=== PATIENT | female | born 1935 | race Caucasian/White ===

== ENCOUNTER 2017-05-14 21:55 | Observation (INO) | payer MEDICARE ==
[2017-05-14] MEDS ORDERED: Diltiazem 125 MG/25 ML ONE (22:36)
[2017-05-14 22:58] LABS: ALT (SGPT) 16 U/L (8-55); AST (SGOT) 21 U/L (5-34); Albumin 4.2 g/dL (3.4-4.8); Alkaline Phosphatase 88 U/L (40-150); Anion Gap 11 mmol/L (10-20); BUN (Urea Nitrogen) 12 mg/dL (9.8-20.1); Bilirubin, Total 0.5 mg/dL (0.2-1.2); CK (CPK) 86 U/L (29-168); Calc. Creatinine Clearance 0 mL/min (70-130); Calcium 9.7 mg/dL (7.8-10.44); Carbon Dioxide 29 mmol/L (23-31); Chloride 107 mmol/L (98-107); Estimated GFR-MDRD 83; Glucose 121 mg/dL (83-110); Potassium 3.7 mmol/L (3.5-5.1); Protein, Total 7.2 g/dL (6.0-8.3); Sodium 143 mmol/L (136-145)
[2017-05-14 23:02] LABS: CKMB 2.5 ng/mL (0-6.6); Troponin I Less than 0.010 ng/mL (< 0.028)
[2017-05-14] MEDS ORDERED: Diltiazem HCl 125 MG, Admixture Fee 1 EACH in Sodium Chloride 0.9% 100 ML IVPB SCH (23:15)
[2017-05-14 23:26] LABS: #Basophils 0.1 thou/uL (0.0-0.2); #Eosinphils 0.1 thou/uL (0.0-0.7); #Lymphocytes 2.8 thou/uL (1.20-3.40); #Monocytes 0.7 thou/uL (0.11-0.59); #Neutrophils 3.1 thou/uL (1.40-6.50); %Basophils 1.6 % (0.0-1.0); %Eosinophils 1.8 % (0.0-10.0); %Lymphocytes 40.5 % (21.0-51.0); %Monocytes 10.8 % (0.0-10.0); %Neutrophils 45.3 % (42.0-75.0); Anisocytosis SLIGHT = 6-15 cells (100X) (0-5/hpf); Hemoglobin 13.1 g/dL (12.0-16.0); Hypochromia SLIGHT = 6-15 cells (100X) (0-5/hpf); MDiff Complete? YES; Mean Corpuscular HGB CONC 30.3 g/dL (32.0-36.0); Mean Corpuscular Volume 65.9 fl (81.0-99.0); Mean Platelet Volume 10.8 fL (7.4-10.4); Microcytosis SLIGHT = 6-15 cells (100X) (0-5/hpf); PLT Morphology Comment Appears Adequate; Platelet Count 253 thou/uL (130-400); Red Blood Cell (RBC) Count 6.55 mill/uL (4.20-5.40); White Blood Cell (WBC) Count 6.9 thou/uL (4.8-10.8)
--- NOTE | 2017-05-14 23:31 | RAD ---
PORTABLE CHEST: 05/14/17 HISTORY: Chest pain and palpitations. COMPARISON: 07/06/10. Heart size is upper normal. The lungs appear clear. A nodule overlying the mid right lung is stable a nd would be consistent with a granuloma, probably calcified. No evidence of effusion or vascular isaac estion. IMPRESSION: No acute process. POS: [facility]
[2017-05-15 00:32] LABS: PTT 33.7 SEC (22.9-36.1); Prothrombin Time 12.9 SEC (12.0-14.7)
[2017-05-15] MEDS ORDERED: Ondansetron HCl/PF 4 MG/2 ML Vial IVP PRN (03:25)
[2017-05-15] MEDS ORDERED: Acetaminophen 325 MG TAB PO PRN (03:25)
[2017-05-15] MEDS ORDERED: Ondansetron ODT 4 MG TAB SL PRN (03:25)
[2017-05-15 03:35] VITALS: BMI 26.1
[2017-05-15 08:09] VITALS: BP 172/82; TEMP 97.7
[2017-05-15] MEDS ORDERED: Aspirin 81 mg Enteric Coated Tablet PO SCH (09:00)
--- NOTE | 2017-05-15 12:45 | SS ---
DATE OF ADMISSION: 05/14/2017 DATE OF DISCHARGE: 05/15/2017 ADMISSION DIAGNOSIS: Atrial fibrillation with rapid ventricular response, rule out myocardial infarc tion. DISCHARGE DIAGNOSES: 1. Resolved atrial fibrillation back to normal sinus rhythm spontaneously. 2. Hypertension. 3. History of cerebrovascular accident. 4. Noncompliance with medication. CONSULTATIONS: None. PROCEDURES: IV diltiazem, telemetry monitoring, rule out ME protocol. HOSPITAL COURSE: This is an 82-year-old female patient who has had atrial fibrillation since 2002. She has episodes about every other year and rapid ventricular response. She is followed by Dr. Chapman , has not seen in 1-2 years. She is status post ablation by Dr. Mann in 2013. She has not tolerat ed anticoagulation except for aspirin in the past and had developed spontaneous bleeding and hematoma with Coumadin back in 2013. The patient states that she has been in her usual state of health, doin g quite well. She was mowing the lawn yesterday until it got dark. She came in after mowing, lookin g for something to eat when she developed palpitations and her heart racing up to 142. She denied ch est pain, denied shortness of breath, denied lightheadedness. She tried to see if it would go away o n its own, but it did not. She presented to the Emergency Department. She does note that she does n ot remember if she took her diltiazem yesterday and was not sure if she should go ahead and take anot her one. In the emergency department, she was admitted. She had normal cardiac enzymes. She was st arted on IV Cardizem which was continued through the night and she converted back to normal sinus rhy thm spontaneously on the IV diltiazem. She is now symptom free. No chest pain, no palpitations. He r cardiac enzymes have been negative. She is ambulating in the hallway without difficulty and is wan ting to go home at this time. She understands the risks and states that she will follow up with Dr. Chapman as an outpatient. PAST MEDICAL HISTORY: Atrial fibrillation, hypertension, hyperlipidemia, history of rapid ventricula r response, history of CVA in 2002, history of lung carcinoid, status post lobectomy. MEDICATIONS: Include diltiazem 120 mg extended release once daily, metoprolol 50 mg extended release once daily, aspirin 325 mg daily, fish oil, vitamin E, Co-Q10, vitamin C, and magnesium. PAST SURGICAL HISTORY: Lung lobectomy in 2002 for carcinoid and cardiac ablation in 2013. FAMILY HISTORY: Noncontributory. SOCIAL HISTORY: No smoking or alcohol. She lives alone. ALLERGIES: None known. OTHER HOSPITALIZATIONS: She was found to have a cerebral thrombosis in 2014 and continued to decline anticoagulation. REVIEW OF SYSTEMS: General: As per the history of present illness. No recent fevers, chills or rec ent illness. HEENT: No headache, visual or hearing changes. Cardiac: No chest pain, shortness of breath. Positive for palpitations. Pulmonary: No cough or hemoptysis. Gastrointestinal: Denies n ausea, vomiting, abdominal pain, melena or hematochezia. Genitourinary: Denies dysuria or hematuria . Neurologic: Denies weakness, seizures, syncope. PHYSICAL EXAMINATION: VITAL SIGNS: Temperature 97.8, pulse of 60, respirations 18, pulse ox 95% on room air, blood pressur e 179/75 but she has not had her morning meds yet. GENERAL: She is awake and alert, in no acute distress. Speech is clear and fluid. NECK: Supple, no JVD, adenopathy or bruits. CARDIOVASCULAR: Heart regular rate and rhythm with 2/6 systolic ejection murmur. LUNGS: Clear. ABDOMEN: Soft. EXTREMITIES: With no edema. NEUROLOGIC: Cranial nerves II-XII grossly intact. Strength is 5/5 upper and lower extremities. LABORATORY DATA: Sodium 143, potassium 3.7, chloride 107, CO2 of 29, BUN and creatinine 12 and 0.68 with a GFR of 83. Serum glucose of 121. Liver enzymes are normal. Troponin less than 0.01, #2 was 0.04, #3 was 0.03. BNP was normal at 83. PT, PTT were normal. EKG from this morning revealed mikie l sinus rhythm. ASSESSMENT AND PLAN: 1. This is an 82-year-old female patient with chronic and paroxysmal atrial fibrillation, now with e pisode of rapid ventricular response. She has converted back to normal sinus rhythm with IV diltiaze m. She has been changed back to her oral meds at this time. 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 She continues to d ecline any further anticoagulation due to her complications in the past and risks and she understands those as well. 2. Noncompliance. We discussed a pill minder program so that she can recall when she has or has not taken her medications. 3. Hypertension. We will continue her medicines. DISPOMeadeSITION: We will discharge home with close followup with myself and with Dr. Chapman.
== END 2017-05-15 09:39 | disposition home or self-care (01) ==
LOC: ERS 21:55 → 2SW 05-15 01:15
PROVIDERS: ADMIT Family Medicine; ATTEND Family Medicine
DX: I48.2 Chronic atrial fibrillation (principal); I48.0 Paroxysmal atrial fibrillation; I10 Essential (primary) hypertension; E78.5 Hyperlipidemia, unspecified; Z86.73 Personal history of transient ischemic attack (TIA), and cerebral infarction without residual deficits; Z91.14 Patient's other noncompliance with medication regimen; Z79.82 Long term (current) use of aspirin; Z79.899 Other long term (current) drug therapy
CPT/HCPCS: 36415; 71045; 80053; 82550; 82553; 83880; 84484; 85025; 85610; 85730; 93005; 96365; 96366; 96376; J7050

== ENCOUNTER 2018-02-15 02:50 | Emergency (ER) | payer MEDICARE ==
[2018-02-15 03:46] LABS: Hemoglobin 12.1 g/dL (12.0-16.0); Mean Corpuscular HGB CONC 30.8 g/dL (32.0-36.0); Mean Corpuscular Hemoglobin 20.2 pg (27.0-31.0); Mean Corpuscular Volume 65.4 fL (78.0-98.0); Platelet Count 240 thou/uL (130-400); RBC Distribution Width 13.7 % (11.5-14.5); White Blood Cell (WBC) Count 6.4 thou/uL (4.8-10.8)
[2018-02-15 04:00] LABS: ALT (SGPT) 10 U/L (8-55); AST (SGOT) 18 U/L (5-34); Albumin 3.6 g/dL (3.4-4.8); Alkaline Phosphatase 72 U/L (40-150); Anion Gap 11 mmol/L (10-20); BUN (Urea Nitrogen) 11 mg/dL (9.8-20.1); Bilirubin, Total 0.6 mg/dL (0.2-1.2); CK (CPK) 56 U/L (29-168); Calc. Creatinine Clearance 0 mL/min (70-130); Carbon Dioxide 25 mmol/L (23-31); Chloride 108 mmol/L (98-107); Estimated GFR-MDRD 87; Globulin 2.9 g/dL (2.4-3.5); Glucose 126 mg/dL (83-110); Potassium 3.9 mmol/L (3.5-5.1); Protein, Total 6.5 g/dL (6.0-8.3); Sodium 140 mmol/L (136-145)
[2018-02-15] MEDS ORDERED: Furosemide 40 MG TAB ONE (04:24)
[2018-02-15 04:35] LABS: #Eosinphils 0.1 thou/uL (0.0-0.7); #Lymphocytes 1.7 thou/uL (1.20-3.40); #Monocytes 0.8 thou/uL (0.11-0.59); #Neutrophils 3.7 thou/uL (1.40-6.50); %Basophils 0.7 % (0.0-1.0); %Eosinophils 2.3 % (0.0-10.0); %Lymphocytes 26.1 % (21.0-51.0); %Monocytes 13.2 % (0.0-10.0); %Neutrophils 57.7 % (42.0-75.0); Anisocytosis SLIGHT = 6-15 cells (100X) (0-5/hpf); MDiff Complete? YES; Microcytosis SLIGHT = 6-15 cells (100X) (0-5/hpf)
--- NOTE | 2018-02-15 08:06 | RAD ---
SINGLE VIEW OF THE CHEST: COMPARISON: 05/14/2017. HISTORY: Chest pain and atrial fibrillation. FINDINGS: A single view of the chest shows a normal-sized cardiomediastinal silhouette with atherosclerotic bhavya cifications in the aorta. There is no evidence of consolidation or pleural effusion. A calcified gr anuloma projects over the right chest. IMPRESSION: No evidence of acute cardiopulmonary disease. POS: [facility]
== END 2018-02-15 04:40 | disposition home or self-care (01) ==
LOC: ERS 02:50
DX: I48.91 Unspecified atrial fibrillation (principal); I10 Essential (primary) hypertension; Z79.899 Other long term (current) drug therapy
CPT/HCPCS: 36415; 71045; 80053; 82550; 83880; 84484; 85025; 93005

== ENCOUNTER 2018-03-25 11:13 | Inpatient (IN) | payer MEDICARE ==
--- NOTE | 2018-03-25 13:04 | RAD ---
LEFT HIP TWO VIEWS: History: Fall. Left hip pain. FINDINGS/IMPRESSION: There is a subcapital fracture of the neck of the left femur. POS: [facility]
[2018-03-25 13:11] LABS: Hemoglobin 13.1 g/dL (12.0-16.0); Mean Corpuscular HGB CONC 30.4 g/dL (32.0-36.0); Mean Corpuscular Hemoglobin 20.4 pg (27.0-31.0); Mean Corpuscular Volume 67.1 fL (78.0-98.0); Mean Platelet Volume 9.1 fL (7.4-10.4); Platelet Count 213 thou/uL (130-400); RBC Distribution Width 13.7 % (11.5-14.5); White Blood Cell (WBC) Count 7.5 thou/uL (4.8-10.8)
[2018-03-25 13:12] LABS: PTT 31.5 SEC (22.9-36.1); Prothrombin Time 12.7 SEC (12.0-14.7)
[2018-03-25 13:25] LABS: ALT (SGPT) 17 U/L (8-55); AST (SGOT) 25 U/L (5-34); Albumin 4.1 g/dL (3.4-4.8); Alkaline Phosphatase 89 U/L (40-150); Anion Gap 13 mmol/L (10-20); BUN (Urea Nitrogen) 13 mg/dL (9.8-20.1); Bilirubin, Total 0.6 mg/dL (0.2-1.2); CK (CPK) 72 U/L (29-168); Calc. Creatinine Clearance 0 mL/min (70-130); Calcium 9.5 mg/dL (7.8-10.44); Carbon Dioxide 25 mmol/L (23-31); Chloride 106 mmol/L (98-107); Estimated GFR-MDRD 83; Globulin 2.9 g/dL (2.4-3.5); Glucose 107 mg/dL (83-110); Sodium 140 mmol/L (136-145)
[2018-03-25 13:40] LABS: #Eosinphils 0.1 thou/uL (0.0-0.7); #Lymphocytes 1.3 thou/uL (1.20-3.40); #Monocytes 0.4 thou/uL (0.11-0.59); #Neutrophils 5.7 thou/uL (1.40-6.50); %Basophils 0.4 % (0.0-1.0); %Eosinophils 1.4 % (0.0-10.0); %Lymphocytes 16.7 % (21.0-51.0); %Monocytes 5.5 % (0.0-10.0); Hypochromia SLIGHT = 6-15 cells (100X) (0-5/hpf); MDiff Complete? YES; Microcytosis SLIGHT = 6-15 cells (100X) (0-5/hpf); Platelet Morphology Comment Appears Adequate
[2018-03-25] MEDS ORDERED: ePHEDrine 50 MG/ML VIAL ONE (13:42)
[2018-03-25] MEDS ORDERED: PROPOFOL 200 MG/20 ML VIAL ONE (13:42)
[2018-03-25] MEDS ORDERED: PROVENTIL INHALER 6.7 G (200 INHALATIONS) ONE (13:42)
[2018-03-25] MEDS ORDERED: Lidocaine 1% PF 5 ML VIAL ONE (13:42)
[2018-03-25] MEDS ORDERED: Ketorolac Tromethamine 30 MG/ML VIAL ONE (13:42)
[2018-03-25] MEDS ORDERED: Dexamethasone 20 MG/5 ML VIAL ONE (13:42)
[2018-03-25] MEDS ORDERED: Rocuronium Bromide 10 MG/ML (10ML VIAL) ONE (13:42)
[2018-03-25] MEDS ORDERED: Glycopyrrolate 0.2 MG/ML 5 ML SYRINGE ONE ×2 (13:42)
[2018-03-25] MEDS ORDERED: Ondansetron PF 4 MG/2 ML Vial ONE (13:42)
[2018-03-25] MEDS ORDERED: cloNIDine 0.1 MG TAB ONE (13:57)
[2018-03-25] MEDS ORDERED: CEFAZOLIN/Water 2 GM/20 ML SYRINGE SLOW IVP SCH ×2 (14:00→19:49)
[2018-03-25] MEDS ORDERED: CEFAZOLIN 2 GM in Premix Bag 1 BAG IVPB SCH (14:30)
--- NOTE | 2018-03-25 14:41 | HP ---
CONSULTATIONS: Orthopedics, Dr. Yee. HISTORY OF PRESENT ILLNESS: The patient is an 83-year-old female, who was reportedly attempting to take a step up a stair when she was grabbing hold of a branch of a nearby chou to balance herself when she lost her balance and fell landing on her left side. The patient had immediate pain to her left hip. She was brought to the emergency department, where she underwent evaluation and examination and was noted to have a left hip fracture. At which time, we were asked to evaluate the patient for admission and obtain Orthopedic consultation. The patient denies loss of consciousness or hitting her head. ALLERGIES: NONE. CURRENT MEDICATIONS: 1. Diltiazem. 2. Metoprolol. PAST MEDICAL HISTORY: Atrial fibrillation and carcinoid lung cancer, also hypertension. PAST SURGICAL HISTORY: Cardiac ablation for her atrial fibrillation, lung biopsy. SOCIAL HISTORY: The patient denies drug, tobacco, or alcohol use. Currently lives independently at home. REVIEW OF SYSTEMS: A 10-point review of systems is negative except as otherwise stated. PHYSICAL EXAMINATION: VITAL SIGNS: Blood pressure 195/89, respirations 16, oxygen saturation 93% on room air, heart rate 57, temperature 98.8. GENERAL: The patient is resting comfortably in bed. She is awake, alert, and oriented x3. [place] Coma Scale is 15. HEENT: Head is normocephalic, atraumatic. Eyes, extraocular motion intact. PERRLA bilaterally. Ears are atraumatic without discharge. Nose, atraumatic without discharge. Oropharynx is clear. NECK: Nontender. Trachea is midline. No JVD. CHEST: Clear to auscultation with good inspiratory and expiratory effort. HEART: Regular rate and rhythm. ABDOMEN: Soft, flat, nontender with active bowel sounds. PELVIS: Stable with tenderness to palpation to the left hip consistent with her fracture. EXTREMITIES: Neurovascularly intact x4. BACK: By report is atraumatic and nontender. LABORATORY FINDINGS: White blood cell count 7.5, hemoglobin 13.1, hematocrit 42.9, platelets 213. Sodium 140, potassium 4.0, chloride 106, CO2 of 25, BUN 13, creatinine 0.68, glucose 107. LFTs are unremarkable. CK 72, PTT 32, PT 13, INR 1.0. RADIOGRAPHIC FINDINGS: AP chest x-ray shows no acute findings. Views of the left hip show subcapital fracture of the neck of the left femur. Views of the left femur again show a displaced subcapital femur fracture. ASSESSMENT: 1. Status post ground level fall. 2. Left subcapital proximal femur fracture. 3. Acute pain secondary to trauma. 4. History of hypertension. 5. History of atrial fibrillation, status post ablation. PLAN: Plan will be to admit the patient to the surgical floor. She will remain n.p.o. Per discussion with Orthopedics, she will likely undergo her surgical procedure today. The patient will have pulmonary toilet, gastritis, mechanical VTE prophylaxis. Postoperatively, we will begin physical and occupational therapy and then discuss placement at that time. The evaluation, examination, laboratory, and radiographic findings were discussed with Dr. Hein at time of dictation. Job ID: [id number]
--- NOTE | 2018-03-25 14:47 | CON ---
DATE OF CONSULTATION: HISTORY: We were asked by Trauma in the ER to see the patient. The patient was in her normal state of health. She lives alone. She was getting up from the bed to get the medications for horses. Unfortunately, in the stairs, she was going up, did not have any railing. She used the chou, the chou gave way, and she fell. No loss of consciousness, but had extensive hip pain. Currently, she is in bed 2 in the ER. Family is at the bedside and she is doing okay unless we move her leg and then she is not very happy. Other than that, no loss of sensations in that lower extremity. She has good sensations in left lower extremity. The patient is answering all the questions well and she has no other issues. Currently, Juancarlos Gutiérrez PA-C is in getting medical history to see if we can take her to the operating room this afternoon. PAST MEDICAL HISTORY: Positive for cardiovascular, lung cancer, and atrial fibrillation. PAST SURGICAL HISTORY: She had ablation surgery and lung surgery. SOCIAL HISTORY: Retired. No alcohol or nicotine use. Lives alone. FAMILY HISTORY: Noncontributory to this visit. CURRENT MEDICATIONS: Clonidine, aspirin, diltiazem, and metoprolol. ALLERGIES: NONE. REVIEW OF SYSTEMS: Healthy female. She has been seen since her ablation 5 years ago for a few bouts of atrial fibrillation, but did not need any aggressive therapies to get her back in her normal rhythm. Currently, no chest pain, shortness of breath, just right lower extremity pain. Rest of review of systems negative. PHYSICAL EXAMINATION: GENERAL: Well-nourished, well-developed female, very pleasant, in no acute distress as long as we do not move her. Speech, clear. Affect, pleasant. Answering question appropriately. She is alert and oriented x3. HEENT: Face symmetric. Tongue midline. NECK: Supple. Trachea midline. LUNGS: Breathing without difficulty. Respirations 16. EXTREMITIES: Upper extremities; equal size, shape, and symmetry. Normal bulk and tone. She has a few bruises on her forearms, but not too bad. Lower extremities; left lower extremity is painful with moving especially at the hip, it is little bit shortened and outward rotated, but DP and PT pulses equal and symmetric. She has a little bit of bruising on the left side also. ASSESSMENT: 1. Left hip fracture. 2. Cardiac issues. Trauma will deal with any of her chronic health conditions. PLAN: I spoke with the patient and family. If cleared by Trauma, we will get the patient set up for hemiarthroplasty. The procedure, risks, and benefits involved were explained to the family and their questions have been answered and they are amenable to go forth with surgery. I reviewed the x-rays with Dr. Yee and this would be the appropriate therapy for the patient. I also went over some of the postoperative treatment for the patient. She may need to go in a rehab for a while for further convalescing and strengthening and she understands this. We will get her on surgery schedule this afternoon to get her hip fixed. Hopefully, get her up walking tomorrow morning. Job ID: [id number]
--- NOTE | 2018-03-25 14:57 | RAD ---
CHEST 1 VIEW: Date: 03/25/18 HISTORY: Chest pain. COMPARISON: Radiograph dated 02/15/18. FINDINGS: Mild increased peribronchovascular markings. No pneumothorax. No effusion. Cardiac silhouette is geovanny lar. IMPRESSION: Cardiomegaly with mild pulmonary venous congestion. POS: [facility]
--- NOTE | 2018-03-25 14:58 | RAD ---
LEFT FEMUR 2 VIEWS: Date: 03/25/18 HISTORY: Fall. Fracture. COMPARISON: Hip radiograph same date. FINDINGS: There is an impacted subcapital left femoral neck fracture with mild valgus angulation. Distal femur is intact. IMPRESSION: Mildly impacted, valgus angulated subcapital left femoral neck fracture. POS: [facility]
[2018-03-25] MEDS ORDERED: Ondansetron HCl/PF 4 MG/2 ML Vial IVP PRN ×2 (16:22→18:47)
[2018-03-25] MEDS ORDERED: Ketamine 50 MG/ML (10ML VIAL) ONE (16:59)
[2018-03-25] MEDS ORDERED: Fentanyl 100 MCG/2 ML VIAL ONE (17:20)
[2018-03-25] MEDS ORDERED: HYDROmorphone 2 MG/ML VIAL SLOW IVP PRN (18:47)
[2018-03-25] MEDS ORDERED: Morphine Sulfate 2 MG/ML SYRINGE SLOW IVP PRN (18:47)
[2018-03-25] MEDS ORDERED: PACU-Morphine 4MG/ML VIAL SLOW IVP PRN (18:47)
[2018-03-25] MEDS ORDERED: Meperidine HCl/PF 25 MG/ML VIAL SLOW IVP PRN (18:47)
[2018-03-25] MEDS ORDERED: Promethazine HCl 25 MG/ML VIAL SLOW IVP PRN (18:47)
[2018-03-25] MEDS ORDERED: Promethazine HCl 25 MG/ML VIAL IM PRN (18:47)
[2018-03-25] MEDS ORDERED: Ondansetron ODT 4 MG TAB PO PRN (19:49)
[2018-03-25] MEDS ORDERED: hydrALAZINE 20 MG/ML VIAL SLOW IVP PRN (19:49)
[2018-03-25] MEDS ORDERED: Dextrose 5% in Water 1,000 ML IV PRN (19:49)
[2018-03-25] MEDS ORDERED: Morphine 4 MG/ML VIAL SLOW IVP PRN ×2 (19:49)
[2018-03-25] MEDS ORDERED: Dextrose 50% Abboject 50 ML SYRINGE SLOW IVP PRN (19:49)
[2018-03-25] MEDS ORDERED: Ondansetron PF 4 MG/2 ML Vial IVP PRN (19:49)
[2018-03-25 21:31] VITALS: BMI 26.3
--- NOTE | 2018-03-25 21:47 | RAD ---
LEFT HIP ONE VIEW: HISTORY: Postop. FINDINGS: This is a cross-table lateral view, which shows a total hip prosthesis in good position. No fracture . IMPRESSION: Placement of total hip prosthesis. POS: [facility]
--- NOTE | 2018-03-25 21:48 | RAD ---
AP PELVIS: HISTORY: Hip replacement. FINDINGS: The bones are demineralized. A total hip prosthesis is in good position. No evidence of fracture. IMPRESSION: Placement of a left hip prosthesis. POS: [facility]
[2018-03-25] MEDS: Famotidine 20 MG TAB PO SCH (21:56)
[2018-03-25] MEDS: Acetaminophen 1,000 MG in Premix Bag 1 BAG IVPB SCH (21:57)
[2018-03-25] MEDS: Ketorolac Tromethamine 30 MG/ML VIAL IVP SCH (21:58)
[2018-03-25] MEDS: Sodium Chloride 0.9% 1,000 ML IV SCH (22:05)
[2018-03-25] MEDS: CEFAZOLIN 2 GM in Premix Bag 1 BAG IVPB SCH (23:39)
--- NOTE | 2018-03-26 01:03 | OP ---
DATE OF PROCEDURE: 03/25/2018 PROCEDURE PERFORMED: Left hip bipolar hemiarthroplasty. PREOPERATIVE DIAGNOSIS: Left femoral neck fracture. POSTOPERATIVE DIAGNOSIS: Left femoral neck fracture. COMPLICATIONS: None. ESTIMATED BLOOD LOSS: 200 mL. DEFENSIVE DRIVING INSTRUCTOR: Rodger Neil PA-C. IMPLANTS: [employer] [place] press-fit basic stem size 6, +5 femoral head with a 43-mm bipolar shell. INDICATIONS FOR PROCEDURE: Maryjo is an 83-year-old female who fell. She fractured the left femoral neck. She was indicated for hemiarthroplasty of the hip to restore mobilization and prevent complications of prolonged bedrest. Risks have been reviewed in detail. Risks to include infection, pain, scarring, bleeding, nerve or vascular injury, and others. DESCRIPTION OF PROCEDURE: Ms. Sibley was identified in the preoperative holding area. Her correct extremity was marked. She was carried to the operating room. She was positioned supine. General anesthesia was induced. The left lower extremity was prepped and draped in sterile fashion. We began the procedure with a posterior approach to the hip. We dissected down through the subcutaneous tissues to the fascia, which was incised. We then exposed the underlying short external rotators of the hip, which were subperiosteally divided from the proximal femur. We then performed a capsulotomy. At this point, we removed the broken femoral head. We then performed a new osteotomy of the femoral neck. At this point, we proceeded to prepare the femur with reaming followed by broaching up to a size 6. This gave a good fit. We trialed off our size 6 broach. A +5 femoral head gave the episcopal of leg length and a stable hip in full range of motion. We removed the trial components. After thorough irrigation, we impacted our final stem and bipolar shell. At this point, we paired the capsule and piriformis tendon with Ethibond suture through drill holes in the trochanter. We then closed the fascia with #2 Vicryl suture followed by 2-0 Vicryl suture, and arielle for the skin. A sterile dressing was applied. The patient was taken to the recovery room in good condition. Job ID: [id number]
[2018-03-26] MEDS: Ketorolac Tromethamine 30 MG/ML VIAL IVP SCH ×2 (03:10→07:42)
[2018-03-26] MEDS: Acetaminophen 1,000 MG in Premix Bag 1 BAG IVPB SCH ×2 (03:11→07:41)
[2018-03-26 05:36] LABS: #Lymphocytes 0.8 thou/uL (1.20-3.40); #Monocytes 0.5 thou/uL (0.11-0.59); %Basophils 0.2 % (0.0-1.0); %Eosinophils 0.1 % (0.0-10.0); %Lymphocytes 6.7 % (21.0-51.0); %Monocytes 3.9 % (0.0-10.0); %Neutrophils 89.1 % (42.0-75.0); Mean Corpuscular HGB CONC 30.2 g/dL (32.0-36.0); Mean Corpuscular Hemoglobin 20.3 pg (27.0-31.0); Mean Corpuscular Volume 67.1 fL (78.0-98.0); Mean Platelet Volume 10.1 fL (7.4-10.4); Platelet Count 174 thou/uL (130-400); RBC Distribution Width 13.6 % (11.5-14.5); Red Blood Cell (RBC) Count 5.41 mill/uL (4.20-5.40); White Blood Cell (WBC) Count 12.4 thou/uL (4.8-10.8)
[2018-03-26 05:53] LABS: Anion Gap 12 mmol/L (10-20); BUN (Urea Nitrogen) 12 mg/dL (9.8-20.1); Calc. Creatinine Clearance 72 mL/min (70-130); Calcium 8.2 mg/dL (7.8-10.44); Carbon Dioxide 23 mmol/L (23-31); Chloride 107 mmol/L (98-107); Estimated GFR-MDRD Greater than 90; Glucose 143 mg/dL (83-110); Potassium 3.8 mmol/L (3.5-5.1); Sodium 138 mmol/L (136-145)
[2018-03-26] MEDS: Sodium Chloride 0.9% 1,000 ML IV SCH (06:22)
[2018-03-26] MEDS: CEFAZOLIN 2 GM in Premix Bag 1 BAG IVPB SCH (07:41)
[2018-03-26] MEDS: Famotidine 20 MG TAB PO SCH ×2 (07:42→21:59)
[2018-03-26] MEDS ORDERED: traMADol HCl 50 MG TAB PO PRN ×2 (08:50)
[2018-03-26] MEDS: Acetaminophen 500 MG TAB PO SCH ×2 (10:29→17:57)
[2018-03-26] MEDS: Ibuprofen 200 MG TAB PO SCH ×3 (10:29→22:00)
[2018-03-26] MEDS: Aspirin 81 mg Enteric Coated Tablet PO SCH ×2 (10:31→21:59)
--- NOTE | 2018-03-26 14:49 | PRG ---
DATE OF SERVICE: 03/26/2018 SUBJECTIVE: This is an 83-year-old female, who was status post ground level fall with a left subcapital femur neck fracture. The patient is postop day #1, left hip bipolar hemiarthroplasty by Dr. Yee. The patient had no overnight events. The patient is eating and drinking well. Pain seems to be well controlled. OBJECTIVE: VITAL SIGNS: SpO2 of 99% on 2 L nasal cannula, pulse 67, blood pressure 161/76, respirations 16, temperature 98.3. GENERAL: The patient is resting comfortably in bed. The patient is awake, alert, in no distress. HEENT: Head is normocephalic, atraumatic. NECK: Nontender. Trachea midline. No JVD. RESPIRATORY: Regular rate and unlabored. Equal chest rise. No distress. PELVIS: Stable. Tenderness to left hip. Dressing is clean, dry, and intact. EXTREMITIES: Neurovascularly intact x4. LABORATORY DATA: WBC 12.4, RBC 5.41, hemoglobin 11.0, hematocrit 36.3, platelets 174. Sodium 138, potassium 3.8, chloride 107, BUN 12, creatinine 0.61, estimated GFR 90, glucose 143, calcium 8.2. DIAGNOSTICS: There are no diagnostics to review today. ASSESSMENT AND PLAN: 1. Status post ground level fall. 2. Left subcapital proximal femur fracture, postoperative day #1 left hip bipolar hemiarthroplasty. 3. Acute pain secondary to trauma. 4. History of hypertension. 5. History of atrial fibrillation status post ablation. PLAN: We will encourage incentive spirometer and pulmonary toilet. Start scheduled nebs. We will place the patient on chemical VTE prophylaxis. We will restart the patient's home medications for hypertension. The patient will be placed on a bowel regimen and all pain medications will be changed to p.o. The patient is pending rehab placement and hopefully will be placed tomorrow. We will continue physical therapy and occupational therapy. The patient was evaluated with Dr. Hein this morning in rounds. The plan was discussed with the patient and the patient agrees. Job ID: [id number] [facility]
[2018-03-26] MEDS: Senokot S 8.6-50 MG TAB PO SCH (21:59)
[2018-03-26] MEDS: Metoprolol Tartrate 25 MG TAB PO SCH (21:59)
[2018-03-27] MEDS: Acetaminophen 500 MG TAB PO SCH ×3 (00:33→12:22)
[2018-03-27 05:08] LABS: Anion Gap 10 mmol/L (10-20); BUN (Urea Nitrogen) 23 mg/dL (9.8-20.1); Calc. Creatinine Clearance 60 mL/min (70-130); Calcium 8.6 mg/dL (7.8-10.44); Carbon Dioxide 26 mmol/L (23-31); Chloride 104 mmol/L (98-107); Estimated GFR-MDRD 76; Glucose 114 mg/dL (83-110); Magnesium 2.2 mg/dL (1.6-2.6); Phosphorus 3.7 mg/dL (2.3-4.7); Potassium 4.1 mmol/L (3.5-5.1); Sodium 136 mmol/L (136-145)
[2018-03-27] MEDS: Aspirin 81 mg Enteric Coated Tablet PO SCH (08:29)
[2018-03-27] MEDS: Famotidine 20 MG TAB PO SCH (08:30)
[2018-03-27] MEDS: Senokot S 8.6-50 MG TAB PO SCH (08:31)
[2018-03-27] MEDS: Ibuprofen 200 MG TAB PO SCH ×2 (08:31→16:42)
[2018-03-27] MEDS: Metoprolol Tartrate 25 MG TAB PO SCH (08:31)
[2018-03-27] MEDS ORDERED: Polyethylene Glycol 3350 17 GM Packet PO SCH (09:00)
[2018-03-27] MEDS ORDERED: cloNIDine 0.1 MG TAB PO PRN (10:04)
[2018-03-27] MEDS ORDERED: Furosemide 40 MG TAB PO PRN (10:04)
[2018-03-27] MEDS ORDERED: Acetaminophen 325 MG TAB PO PRN (10:04)
[2018-03-27 16:38] VITALS: BP 149/67; TEMP 98
--- NOTE | 2018-03-27 17:04 | DIS ---
DATE OF ADMISSION: 03/25/2018 DATE OF DISCHARGE: 03/27/2018 DISCHARGE ATTENDING: Robbin Hein DO CONSULT: Orthopedics, Jeremiah Yee MD PROCEDURES: 1. On 03/25/2018, hip x-ray, impression, subcapital fracture of the neck of the left femur. 2. Chest x-ray on 03/25, impression, cardiomegaly with mild pulmonary venous congestion. 3. On 03/25/2018, femur x-ray, mildly displaced valgus angulated subcapital left femoral neck fracture. 4. On 03/25/2018, procedure, left hip bipolar hemiarthroplasty by Dr. Yee. PRIMARY DIAGNOSIS: Left subcapital femur neck fracture. SECONDARY DIAGNOSES: History of hypertension and atrial fibrillation, status post ablation. DISCHARGE MEDICATIONS: 1. Tylenol 1000 mg p.o. q.6 hours. 2. Aspirin 81 mg b.i.d. 3. Clonidine 0.1 three times a day as needed for blood pressure greater than 160. 4. Cardizem CD 120 mg p.o. daily. 5. /820 mg p.o. b.i.d. 6. Furosemide 40 mg 1 tablet p.o. daily as needed for leg swelling. 7. Motrin 400 mg p.o. three times a day. 8. Metoprolol 50 mg p.o. at bedtime. 9. Zofran 4 mg ODT q.6 hours as needed for nausea. 10. MiraLAX 17 g p.o. daily. 11. Senokot S 2 tablets p.o. b.i.d. 12. Tramadol 1 to 2 tablets q.6 hours as needed for mhuhrmtu-av-qfxyex pain. DISCONTINUE MEDICATIONS: The patient's previous home Tylenol dose. HISTORY OF PRESENT ILLNESS AND HOSPITAL COURSE: This is an 83-year-old female, who was attempting to take a step of a stair and lost her balance, landing onto her left side. The patient was evaluated in the Emergency Department and was found to have a left hip fracture. Orthopedics was consulted and taken to the OR for repair. The patient is postop day #2. The patient has been participating with physical therapy. The patient's pain has been well controlled. The patient also reports having a good appetite. The patient voices no complaints. Home medications were restarted today. The patient has not had a bowel movement, but is on a scheduled bowel regimen. On the day of discharge, the patient had no complaints nor did the family. The patient's vital signs were stable on the day of discharge and exam was unremarkable including cardiopulmonary and GI exam. The patient deemed stable for discharge to inpatient rehab for continued physical and occupational therapy. The plan was discussed with Dr. Hein. DISPOSITION: Stable. DISCHARGE INSTRUCTIONS: LOCATION: Inpatient rehab. DIET: Regular diet. ACTIVITY: As tolerated with hip precautions. The patient to use a walker for ambulation. FOLLOWUP: 1. Follow up with primary care physician, Dr. Mooney, as needed. 2. Follow up with Dr. Yee in 10 days. 3. Follow up with Dr. Hein, if needed. Job ID: [id number] [facility]
== END 2018-03-27 16:56 | DRG 470 ==
LOC: ERS 11:13 → SDC/OP 14:17 → SJJU 19:49
PROVIDERS: ADMIT Surgery; ATTEND Surgery
PROC: 0SRS0JA Replacement of Left Hip Joint, Femoral Surface with Synthetic Substitute, Uncemented, Open Approach (ICD-10-PCS; principal; 2018-03-25)
DX: S72.012A Unspecified intracapsular fracture of left femur, initial encounter for closed fracture (principal); I10 Essential (primary) hypertension; W10.9XXA Fall (on) (from) unspecified stairs and steps, initial encounter; I48.91 Unspecified atrial fibrillation; Z98.890 Other specified postprocedural states; Z79.82 Long term (current) use of aspirin; Z79.899 Other long term (current) drug therapy
CPT/HCPCS: 36415; 71045; 72170; 80048; 80053; 82550; 83735; 84100; 85025; 85610; 85730; 86850; 86900; 86901; 93005; 94640; J0131; J1100; J1885; J2001; J2405; J2704; J3010; J3490; J7620

== ENCOUNTER 2018-04-17 20:18 | Inpatient (IN) | payer MEDICARE ==
[~2018-04-17 20:18] MED LIST: ISOVUE-370 76%-LOCM 1 ML ONE
--- NOTE | 2018-04-17 21:11 | RAD ---
CHEST ONE VIEW 04/17/18 INDICATION: Shortness of breath. COMPARISON: Prior exam dated 02/15/18. FINDINGS: Nodular prominence of the right hilar region is stable. Calcified granuloma in the right upper lobe i s stable. Mild cardiomegaly is stable. There is new increased air space opacity within the left lower lobe with a small left pleural effusion. No acute osseous abnormality is evident. IMPRESSION: 1. Increased air space opacity in left lower lobe with a small left pleural effusion may reflect pneumonia with a small parapneumonic effusion. Recommend correlation with clinical examination. 2. Mild cardiomegaly is stable to comparison dated 02/15/18. 3. Stable findings of prior granulomatous disease. POS: [facility]
[2018-04-17 21:36] LABS: #Basophils 0.1 thou/uL (0.0-0.2); #Eosinphils 0.2 thou/uL (0.0-0.7); #Lymphocytes 2.1 thou/uL (1.20-3.40); #Monocytes 1.6 thou/uL (0.11-0.59); #Neutrophils 6.5 thou/uL (1.40-6.50); %Eosinophils 2.3 % (0.0-10.0); %Lymphocytes 20.2 % (21.0-51.0); %Monocytes 14.9 % (0.0-10.0); %Neutrophils 61.6 % (42.0-75.0); Hemoglobin 10.9 g/dL (12.0-16.0); Mean Corpuscular HGB CONC 29.4 g/dL (32.0-36.0); Mean Corpuscular Hemoglobin 19.7 pg (27.0-31.0); Mean Corpuscular Volume 67.1 fL (78.0-98.0); Mean Platelet Volume 9.6 fL (7.4-10.4); Platelet Count 411 thou/uL (130-400); RBC Distribution Width 14.2 % (11.5-14.5); Red Blood Cell (RBC) Count 5.54 mill/uL (4.20-5.40); White Blood Cell (WBC) Count 10.6 thou/uL (4.8-10.8)
--- NOTE | 2018-04-17 22:02 | ULT ---
DOPPLER VENOUS ULTRASOUND LEFT LOWER EXTREMITY: 04/17/18 INDICATION: Left lower extremity swelling status post hip surgery. TECHNIQUE: Redman scale, color doppler and vascular duplex with spectral analysis was performed of the deep venous structures of the left lower extremity. Common femoral vein, superficial femoral vein, popliteal vei n, posterior tibial vein, proximal greater saphenous and profunda veins were assessed. FINDINGS: Normal compression, flow, and augmentation seen within the deep venous structures of the left lower e xtremity. IMPRESSION: No evidence of DVT to the left lower extremity. POS: [facility]
[2018-04-17 22:29] LABS: Bilirubin Negative (Negative); Blood, Urine Negative (Negative); Clarity CLEAR (Clear); Glucose, Urine (Dipstick) Negative (Negative); Leukocyte Negative (Negative); Nitrite Negative (Negative); Protein, Urine (Dipstick) Negative (Neg-Trace); Specific Gravity, Urine 1.012 (1.002-1.036); Urobilinogen 0.2 mg/dL (0.2-1.0)
[2018-04-17 23:08] LABS: Albumin 3.3 g/dL (3.4-4.8)
[2018-04-17 23:09] LABS: Calcium 9.2 mg/dL (7.8-10.44); Chloride 102 mmol/L (98-107); Magnesium 2.2 mg/dL (1.6-2.6); Potassium 4.5 mmol/L (3.5-5.1); Sodium 139 mmol/L (136-145)
--- NOTE | 2018-04-17 23:09 | CT ---
CTA OF THE THORAX UTILIZING IV CONTRAST AND 3D REFORMATTED IMAGIN04/17/18 INDICATION: Left lower extremity swelling and shortness of breath. COMPARISON: Prior chest radiograph dated 04/17/18. FINDINGS: No central or segmental pulmonary embolus is evident. There is air space consolidation in left lower lobe consistent with pneumonia. There is a small left parapneumonic effusion. There are numerous scat tered pulmonary nodules seen throughout both lungs. One of the largest seen within the left upper lob e measuring 7 mm. There is a mildly prominent precarinal lymph node measuring 1.5 cm. There are mildl y prominent left hilar lymph nodes. One measuring 7 mm and additional measuring 1.6 cm. There is scat tered coronary artery and thoracic aorta calcifications. There are calcified lymph nodes within the r ight hilar region. There is calcified granuloma within the right mid lung. The adrenal glands appear within normal limits. The visualized aspects of the liver are unremarkable appearing. Calcified granu geovanny are seen within the spleen. There is diffuse osteopenia. IMPRESSION: 1. Air space consolidation in the anterolateral segment of the left lower lobe is suspicious for pneumonia. There is a small left pleural effusion. 2. There are numerous pulmonary nodules seen throughout both lungs suspicious for pulmonary meta static disease. 3. Mild prominence of the lymph nodes in left hilar region and mediastinum may be reactive in na ture; however, malignant lymphadenopathy is not excluded. 4. No definite central or segmental pulmonary embolus demonstrated. 5. Findings of prior granulomatous disease. 6. Diffuse osteopenia. Code T POS: [facility]
[2018-04-17 23:10] LABS: Glucose 136 mg/dL (83-110)
[2018-04-17 23:11] LABS: Globulin 3.1 g/dL (2.4-3.5); Protein, Total 6.4 g/dL (6.0-8.3)
[2018-04-17 23:12] LABS: Anion Gap 11 mmol/L (10-20); Bilirubin, Total 0.3 mg/dL (0.2-1.2); Carbon Dioxide 31 mmol/L (23-31)
[2018-04-17 23:13] LABS: Alkaline Phosphatase 105 U/L (40-150)
[2018-04-17 23:14] LABS: Calc. Creatinine Clearance 0 mL/min (70-130); Estimated GFR-MDRD 87
[2018-04-17 23:15] LABS: BUN (Urea Nitrogen) 18 mg/dL (9.8-20.1)
[2018-04-17 23:16] LABS: ALT (SGPT) 16 U/L (8-55); AST (SGOT) 18 U/L (5-34)
[2018-04-17] MEDS ORDERED: CEFAZOLIN 1 GM VIAL ONE (23:49)
[2018-04-18] MEDS ORDERED: Cefepime 1 GM in Sodium Chloride 0.9% 100 ML IVPB SCH (00:15)
[2018-04-18 04:54] VITALS: BMI 26.2
[2018-04-18] MEDS ORDERED: Ondansetron PF 4 MG/2 ML Vial IVP PRN (09:21)
[2018-04-18] MEDS ORDERED: HYDROcodone/Acetaminophen 5/325 mg Tablet PO PRN (09:21)
[2018-04-18] MEDS ORDERED: Acetaminophen 325 MG TAB PO PRN (09:21)
[2018-04-18] MEDS ORDERED: cloNIDine 0.1 MG TAB PO PRN (09:25)
[2018-04-18] MEDS ORDERED: Furosemide 40 MG TAB PO PRN (09:25)
[2018-04-18] MEDS ORDERED: Azithromycin 500 MG in Sodium Chloride 0.9% 250 ML 250 ML IVPB SCH (10:00)
[2018-04-18] MEDS: cefTRIAXone\\ROCEPHIN 1 GM in Sodium Chloride 0.9% 100 ML IVPB SCH (10:30)
[2018-04-18] MEDS ORDERED: Aspirin 81 mg Enteric Coated Tablet PO SCH (10:30)
[2018-04-18] MEDS: Sodium Chloride 0.9% 1,000 ML IV SCH (10:31)
[2018-04-18] MEDS: ALPRAZolam 0.25 MG TAB PO PRN ×2 (11:24→20:22)
[2018-04-18] MEDS ORDERED: Furosemide 20 MG/2 ML VIAL SLOW IVP SCH (12:30)
--- NOTE | 2018-04-18 13:17 | HP ---
HISTORY OF PRESENT ILLNESS: This is an 83-year-old white female, who is postop 3 weeks status post left hip replacement, who presents with weakness, cough, and anxiety. The patient has a history of a carcinoid lung tumor removed in 2002. She has done well since then. Three weeks ago, she had a left hip replacement by Dr. Yee. Over the past week, she states her main issue has been anxiety. She has become anxious for no reason. She has been developing an increasing cough, nonproductive. She has had no fever. She was noting her legs becoming swollen and presented to the ER. In the ER, chest x-ray revealed a pneumonia with effusion with concerns about possible metastatic lung cancer. PAST MEDICAL HISTORY: Hypertension, atrial fibrillation, CVA in 2002, and carcinoid tumor removed in 2002. PAST SURGICAL HISTORY: Include partial left lung lobectomy in 2002, cardiac ablation, and left hip surgery in 2019. FAMILY HISTORY: Relatively unknown. SOCIAL HISTORY: She is a nonsmoker. Does not drink. She is . ALLERGIES: NONE. REVIEW OF SYSTEMS: As above. PHYSICAL EXAMINATION: VITAL SIGNS: Afebrile, temperature 97.8, pulse 68, respirations 15, pulse ox 97% on room air, and blood pressure 159/69. GENERAL: No acute distress. HEENT: Clear. HEART: Regular rate and rhythm. LUNGS: Bibasilar rales. Occasional left lower lobe expiratory wheeze. ABDOMEN: Soft and obese. EXTREMITIES: With trace edema bilaterally. LABORATORY DATA: White count 10.6 and H and H 10 and 37. Electrolytes normal. Creatinine 0.65, BUN 18, and blood sugar 136. Troponin less than 0.010 and BNP 160. D-dimer is 2.21. Urine is negative. Chest x-ray 1 month ago was unremarkable. Chest x-ray yesterday showed mild cardiomegaly, increased airspace opacity with small left pleural effusion, and possible pneumonia. CT of the chest show possible left lower lobe pneumonia with numerous pulmonary nodules seen throughout the lungs. ASSESSMENT: 1. Pneumonia versus chronic lung changes. 2. Lung nodules on CT. There are no prior CT scans for comparison. 3. Postop left hip open reduction and internal fixation. 4. History of lung carcinoid in 2002, status post partial lobectomy for carcinoid tumor. 5. Hypertension. 6. History of atrial fibrillation. 7. History of cerebrovascular accident. PLAN: 1. Consult Pulmonary. Rule out chronic lung findings versus new lung changes. Must rule out recurrent lung cancer versus pneumonia. 2. Antibiotics and neb treatments for now. 3. We will continue to follow. Job ID: [id number]
[2018-04-18] MEDS: Albuterol Sulfate 2.5 mg/3 ml Neb NEB SCH ×3 (14:09→23:38)
[2018-04-18] MEDS: hydrALAZINE 25 MG TAB PO SCH ×2 (15:10→20:22)
[2018-04-18] MEDS: Famotidine 20 MG TAB PO SCH (20:22)
[2018-04-18] MEDS: Senokot S 8.6-50 MG TAB PO SCH (20:23)
[2018-04-19 05:03] LABS: #Basophils 0.1 thou/uL (0.0-0.2); #Eosinphils 0.4 thou/uL (0.0-0.7); #Lymphocytes 1.3 thou/uL (1.20-3.40); #Monocytes 1.4 thou/uL (0.11-0.59); #Neutrophils 6.4 thou/uL (1.40-6.50); %Basophils 0.7 % (0.0-1.0); %Eosinophils 3.8 % (0.0-10.0); %Lymphocytes 13.8 % (21.0-51.0); %Monocytes 14.8 % (0.0-10.0); %Neutrophils 66.8 % (42.0-75.0); Hemoglobin 9.9 g/dL (12.0-16.0); Mean Corpuscular HGB CONC 28.8 g/dL (32.0-36.0); Mean Corpuscular Hemoglobin 19.7 pg (27.0-31.0); Mean Corpuscular Volume 68.5 fL (78.0-98.0); Mean Platelet Volume 8.7 fL (7.4-10.4); Platelet Count 368 thou/uL (130-400); RBC Distribution Width 13.9 % (11.5-14.5); Red Blood Cell (RBC) Count 4.99 mill/uL (4.20-5.40); White Blood Cell (WBC) Count 9.6 thou/uL (4.8-10.8)
[2018-04-19 05:04] LABS: Anion Gap 11 mmol/L (10-20); BUN (Urea Nitrogen) 14 mg/dL (9.8-20.1); Calc. Creatinine Clearance 77 mL/min (70-130); Calcium 9.2 mg/dL (7.8-10.44); Carbon Dioxide 31 mmol/L (23-31); Chloride 103 mmol/L (98-107); Estimated GFR-MDRD Greater than 90; Glucose 118 mg/dL (83-110); Potassium 4.3 mmol/L (3.5-5.1); Sodium 141 mmol/L (136-145)
--- NOTE | 2018-04-19 07:44 | CON ---
DATE OF CONSULTATION: HISTORY OF PRESENT ILLNESS: Maryjo Mendes is an 83-year-old female, who was admitted to the hospital with lower extremity swelling. She is status post left hip surgery and was doing well when she noticed her legs were swollen. There is a family member present, who states that she is also having difficulty breathing, but no fevers, chills, or chest pain. X-ray and CT showed left pleural effusion, left lower lung infiltrate, and nonspecific bilateral small nodules. She tells me she is essentially a nonsmoker. PAST MEDICAL HISTORY: Pertinent for atrial fibrillation, status post ablation at [facility]; history of orthopedic surgery; history of knee surgery; history of some kind of lung problems. HABITS: No alcohol or tobacco abuse. CHRONIC MEDICATIONS: 1. Diltiazem 120 a day. 2. Metoprolol 50 once a day. ALLERGIES: NONE. SOCIAL HISTORY: Otherwise, unremarkable. FAMILY HISTORY: Otherwise, unremarkable. MEDICATIONS: Home medicines apparently include: 1. Tramadol. 2. Catapres. 3. Metoprolol 100. 4. Lasix apparently p.r.n. Since admission, she is started on: 1. Zithromax. 2. Ceftriaxone. 3. Lasix. 4. Metoprolol. 5. Hydrocodone. PHYSICAL EXAMINATION: VITAL SIGNS: Saturations 100% on room air, respiratory rate 18, temperature 97, pulse 70, blood pressure 170/71. CHEST: Decreased breath sounds without any wheezing. CARDIAC: Normal S1 and S2. No gallops. ABDOMEN: Soft. NEUROLOGIC: She is awake, alert, and responsive. EXTREMITIES: 2+ edema. LABORATORY DATA: D-dimer is 2.2. White count 10,000, H and H 10 and 37. Lytes are normal. BNP is 104. No evidence of DVT was found on ultrasound of both legs. IMPRESSION: 1. Left lung pneumonia and pleural effusion. 2. History of supraventricular tachycardia. 3. Probably diastolic dysfunction. PLAN: I will initiate diuretics. Low-dose DVT prophylaxis. Supportive care. Continue antibiotics. I will follow. If effusion gets larger, we will consider doing a thoracentesis. Consultation note of 70 minutes, 50% in direct patient care. Job ID: [id number]
[2018-04-19] MEDS: Albuterol Sulfate 2.5 mg/3 ml Neb NEB SCH ×3 (08:10→19:01)
--- NOTE | 2018-04-19 08:18 | PRG ---
DATE OF SERVICE: 04/19/2018 SUBJECTIVE: The patient is feeling some better than yesterday. She continued to be short of breath, especially lying flat, her walking around in the room. She denies chest pain. Denies cough. She has improvement of her breathing with the neb treatments. Her anxiety has improved with Xanax p.r.n. Appetite is good. No nausea or vomiting. OBJECTIVE: VITAL SIGNS: Temperature 97.8, pulse is 64 to 75 and regular, respirations 16, blood pressure 127/67, and pulse ox 98% on 2 L nasal cannula. GENERAL: She is awake and alert. She has some conversational dyspnea. Mucosa is moist. NECK: Supple. HEART: Regular rate and rhythm. LUNGS: Rhonchi throughout, worse on the left side. No wheezes. ABDOMEN: Soft. EXTREMITIES: With 2+ edema bilaterally. LABORATORY DATA: White blood cell count 9600, hemoglobin and hematocrit 9.9 and 34.2 with microcytic indices, platelets of 368. Sodium 141, potassium 4.3, chloride 103, CO2 of 31, BUN and creatinine 14 and 0.57, GFR greater than 90, serum glucose of 118, calcium of 9.2. BNP yesterday was 160. Echocardiogram from yesterday revealed ejection fraction of 55% to 60%, suggestive of diastolic dysfunction with dilated left atrium. No chest x-ray from this morning. Vascular ultrasound revealed no DVT. CT angiogram revealed left lower lobe airspace consolidation, suspicious of pneumonia, pleural effusion, multiple pulmonary nodules. Mild prominence of lymph nodes in the left hilar region and mediastinum. ASSESSMENT AND PLAN: 1. This is an 83-year-old female with a history of lung carcinoid tumor in 2002, recent hip repair less than one month ago, now with left-sided pneumonia and pulmonary nodules. I will continue antibiotics and neb treatments and oxygen. Appreciate Dr. Hall's assistance. 2. Lung nodules. 3. Pleural effusion. May consider thoracentesis if persists. 4. History of atrial fibrillation, is rate controlled, and back in normal sinus at this time. I will continue anticoagulation and GI protection. 5. Anxiety, improved with Xanax p.r.n. Job ID: [id number]
[2018-04-19] MEDS: Sodium Chloride 0.9% 1,000 ML IV SCH (08:47)
[2018-04-19] MEDS: Polyethylene Glycol 3350 17 GM Packet PO SCH (08:48)
[2018-04-19] MEDS: hydrALAZINE 25 MG TAB PO SCH ×3 (08:48→21:19)
[2018-04-19] MEDS: Enoxaparin Sodium 40 MG/0.4 ML SYRINGE SC SCH (08:49)
[2018-04-19] MEDS: Aspirin 81 mg Enteric Coated Tablet PO SCH (08:49)
[2018-04-19] MEDS: Senokot S 8.6-50 MG TAB PO SCH ×2 (08:49→21:19)
[2018-04-19] MEDS: Famotidine 20 MG TAB PO SCH ×2 (08:49→21:20)
--- NOTE | 2018-04-19 09:23 | RAD ---
PORTABLE CHEST: INDICATION: Pneumonia. COMPARISON: 04/17/[address] chest of 04/17/2018. FINDINGS: Mild cardiomegaly and mild vascular engorgement. Left-sided effusion is present and left basilar ate lectasis and/or infiltrate. POS: [facility]
--- NOTE | 2018-04-19 11:11 | PRG ---
DATE OF SERVICE: 04/19/2018 SUBJECTIVE: This morning, she is better, still short of breath. X-ray still shows a left lower lung effusion and a pleural-based density. Echo shows normal EF. OBJECTIVE: VITAL SIGNS: Pulse 64, saturations are 93% on 2 L, respiratory rate 18. CHEST: Decreased breath sounds. Left base without any wheezing. CARDIAC: Normal S1 and S2. No gallops. ABDOMEN: No masses. LABORATORY DATA: White count is unremarkable. Lytes are normal. IMPRESSION: Normal ejection fraction, left pleural effusion, left basilar infiltrate. PLAN: Consider thoracentesis of the left chest. Continue PT and supportive care. We will follow. Job ID: [id number]
[2018-04-19] MEDS: cefTRIAXone\\ROCEPHIN 1 GM in Sodium Chloride 0.9% 100 ML IVPB SCH (11:20)
[2018-04-19] MEDS ORDERED: Albuterol Sulfate 2.5 mg/3 ml Neb ONE (13:10)
[2018-04-19] MEDS ORDERED: predniSONE 20 MG TAB PO SCH (15:00)
[2018-04-19] MEDS: ALPRAZolam 0.25 MG TAB PO PRN (21:23)
[2018-04-20] MEDS: Albuterol Sulfate 2.5 mg/3 ml Neb NEB SCH ×5 (00:01→23:06)
[2018-04-20] MEDS: Sodium Chloride 0.9% 1,000 ML IV SCH ×2 (01:53→21:49)
[2018-04-20] MEDS: traMADol HCl 50 MG TAB PO PRN ×2 (05:13→23:20)
[2018-04-20 05:28] LABS: #Monocytes 0.7 thou/uL (0.11-0.59); #Neutrophils 6.1 thou/uL (1.40-6.50); %Basophils 0.3 % (0.0-1.0); %Eosinophils 0.1 % (0.0-10.0); %Lymphocytes 13.3 % (21.0-51.0); %Monocytes 9.1 % (0.0-10.0); %Neutrophils 77.2 % (42.0-75.0); Mean Corpuscular HGB CONC 29.8 g/dL (32.0-36.0); Mean Corpuscular Volume 66.9 fL (78.0-98.0); Mean Platelet Volume 8.4 fL (7.4-10.4); Platelet Count 378 thou/uL (130-400); RBC Distribution Width 13.8 % (11.5-14.5); White Blood Cell (WBC) Count 7.9 thou/uL (4.8-10.8)
[2018-04-20 05:44] LABS: ALT (SGPT) 16 U/L (8-55); AST (SGOT) 15 U/L (5-34); Albumin 3.2 g/dL (3.4-4.8); Alkaline Phosphatase 91 U/L (40-150); Anion Gap 9 mmol/L (10-20); BUN (Urea Nitrogen) 15 mg/dL (9.8-20.1); Bilirubin, Total 0.3 mg/dL (0.2-1.2); Calc. Creatinine Clearance 72 mL/min (70-130); Calcium 9.5 mg/dL (7.8-10.44); Carbon Dioxide 34 mmol/L (23-31); Chloride 102 mmol/L (98-107); Estimated GFR-MDRD Greater than 90; Globulin 2.8 g/dL (2.4-3.5); Glucose 128 mg/dL (83-110); Potassium 4.8 mmol/L (3.5-5.1); Sodium 140 mmol/L (136-145)
[2018-04-20] MEDS: predniSONE 20 MG TAB PO SCH (09:15)
[2018-04-20] MEDS: Enoxaparin Sodium 40 MG/0.4 ML SYRINGE SC SCH (09:16)
[2018-04-20] MEDS: Aspirin 81 mg Enteric Coated Tablet PO SCH (09:16)
[2018-04-20] MEDS: hydrALAZINE 25 MG TAB PO SCH ×3 (09:17→21:33)
[2018-04-20] MEDS: Senokot S 8.6-50 MG TAB PO SCH ×2 (09:17→21:32)
[2018-04-20] MEDS: Famotidine 20 MG TAB PO SCH ×2 (09:17→21:34)
[2018-04-20] MEDS: Polyethylene Glycol 3350 17 GM Packet PO SCH (09:17)
[2018-04-20] MEDS: cefTRIAXone\\ROCEPHIN 1 GM in Sodium Chloride 0.9% 100 ML IVPB SCH (11:35)
--- NOTE | 2018-04-20 11:41 | PRG ---
DATE OF SERVICE: 04/20/2018 SUBJECTIVE: This morning, she is better. She is less short of breath. No significant pain or discomfort. OBJECTIVE: VITAL SIGNS: Her saturations are 95%, pulse 88, blood pressure 130/80, and respiratory rate 18. CHEST: Decreased breath sounds without any wheezing. CARDIAC: Normal S1 and S2. No gallops. ABDOMEN: No masses. IMPRESSION: Left pleural effusion and left pleural base density mass. PLAN: Continue antibiotics. Continue steroids. We will follow x-ray tomorrow. If shows pleural effusion, we will do thoracentesis. Job ID: [id number]
--- NOTE | 2018-04-20 17:53 | PRG ---
DATE OF SERVICE: 04/20/2018 SUBJECTIVE: The patient is feeling some better. She sitting up in a bedside chair without oxygen this morning. She states that she is sleeping better in the bedside chair at the recliner, so that she can be sitting up more. She continues to have shortness of breath when walking around some improvement with the nebulizer treatments. Tolerating her diet. Her caregiver states that she is only mildly improved, but not significant. OBJECTIVE: VITAL SIGNS: Temperature 97.5, pulse is 68, respirations 16, blood pressure 157/61, and pulse ox is 93% on room air. GENERAL: She is awake and alert. No acute distress. Speech is clear. Some conversational dyspnea. NECK: Supple. HEART: Regular rate and rhythm. LUNGS: With rhonchi throughout. Positive rales at the bases, worse on the left side. ABDOMEN: Soft. EXTREMITIES: With 2+ edema bilateral lower extremities. LABORATORY DATA: Chest x-ray, none this morning. ASSESSMENT AND PLAN: 1. This is an 83-year-old female patient with a history of lung carcinoid in 2002, and recent hip repair less than a month ago, now with left-sided pneumonia and pleural effusion, worse on the left. Plan to continue antibiotics. Possible thoracentesis by Dr. Hall tomorrow, if chest x-ray shows persistence of effusion. 2. History of atrial fibrillation. She is rate controlled back in normal sinus. We will continue anticoagulation. 3. Hypertension. We will continue medicine antihypertensive. 4. Anxiety, improved with Xanax p.r.n. Job ID: [id number]
[2018-04-21] MEDS: Albuterol Sulfate 2.5 mg/3 ml Neb NEB SCH ×3 (08:35→19:05)
--- NOTE | 2018-04-21 08:49 | RAD ---
TWO VIEW CHEST: History: Pleural effusion, shortness of breath. Comparison: 04-19-18 FINDINGS/IMPRESSION: Bilateral pleural effusions, slightly larger on the left. Left basilar atelectasis. Mild cardiomegaly and mild vascular congestion. Not significantly changed from 04-19-18 considering differences in tech nique. POS: [facility]
[2018-04-21] MEDS: hydrALAZINE 25 MG TAB PO SCH ×3 (08:53→21:52)
[2018-04-21] MEDS: Aspirin 81 mg Enteric Coated Tablet PO SCH (08:53)
[2018-04-21] MEDS: predniSONE 20 MG TAB PO SCH (08:54)
[2018-04-21] MEDS: Famotidine 20 MG TAB PO SCH ×2 (08:54→21:51)
[2018-04-21] MEDS: Enoxaparin Sodium 40 MG/0.4 ML SYRINGE SC SCH (08:55)
[2018-04-21] MEDS: Polyethylene Glycol 3350 17 GM Packet PO SCH (08:55)
[2018-04-21] MEDS: Senokot S 8.6-50 MG TAB PO SCH ×2 (08:57→21:52)
--- NOTE | 2018-04-21 10:11 | PRG ---
DATE OF SERVICE: 04/21/2018 SUBJECTIVE: An 83-year-old female who states she is doing better. X-ray shows a small left-sided pleural effusion on the decubitus view. OBJECTIVE: VITAL SIGNS: Temperature 97, blood pressure 164/60, saturations are 90% on room air, respiratory rate 18. CHEST: Decreased breath sounds. No wheezing. CARDIAC: Normal S1 and S2. No gallops. ABDOMEN: No masses. IMPRESSION: Left-sided pleural effusion and pleural-based pneumonia and mass. PLAN: She can be switched over to oral antibiotics. Probably discharge home in the next 24 to 48 hours. If pleural effusion does not resolve or becomes larger, she will require thoracentesis. At this stage, we will kind of hold off any thoracentesis. Disposition as per primary care physician. Job ID: [id number]
[2018-04-21] MEDS: ALPRAZolam 0.25 MG TAB PO PRN ×2 (15:43→21:53)
--- NOTE | 2018-04-21 18:03 | PRG ---
DATE OF SERVICE: 04/21/2018 SUBJECTIVE: The patient is feeling some better. She is able to walk in the hallway with minimal difficulty. She does get short of breath after long distances. She is walking in the room without much difficulty. She continues to sleep in the recliner to help with her breathing. She continues to require oxygen most of the time. Anxious to get home. OBJECTIVE: VITAL SIGNS: Temperature 97.5, pulse is 66, respirations 16, blood pressure 164/66, and pulse ox is 96% on 2 L nasal cannula. GENERAL: She is awake and alert. No acute distress. Speech is clear. NECK: Supple. HEART: Regular rate and rhythm. LUNGS: With rales bilaterally, worse on the left side. No wheezes. ABDOMEN: Soft. EXTREMITIES: With 2+ edema bilaterally. LABORATORY DATA: Reviewed. Chest x-ray as of this morning was pending upon review, continues to have bilateral pleural effusions slightly larger on the left, bibasilar atelectasis, mild cardiomegaly and mild vascular congestion, but no significant change from past. ASSESSMENT AND PLAN: 1. This is a 83-year-old female patient with recent hip repair, past history of lung carcinoid, and now with left-sided pneumonia and persistent pleural effusion. We will continue antibiotics. Appreciate Dr. Hall for Pulmonary following. 2. History of atrial fibrillation. She is rate controlled and in normal sinus. We will continue anticoagulation to reduce risk of cerebrovascular accident. 3. Diastolic dysfunction. May consider diuresis. 4. Hypertension. We will continue antihypertensive. 5. Anxiety is stable. 6. Disposition, hopefully home soon if thoracentesis is not necessary during this hospitalization. Job ID: [id number]
[2018-04-21] MEDS: Sodium Chloride 0.9% 1,000 ML IV SCH (18:23)
[2018-04-22] MEDS: Albuterol Sulfate 2.5 mg/3 ml Neb NEB SCH ×3 (02:11→13:27)
[2018-04-22] MEDS: Aspirin 81 mg Enteric Coated Tablet PO SCH (08:18)
[2018-04-22] MEDS: Famotidine 20 MG TAB PO SCH (08:18)
[2018-04-22] MEDS: hydrALAZINE 25 MG TAB PO SCH ×2 (08:19→15:57)
[2018-04-22] MEDS: predniSONE 20 MG TAB PO SCH (08:21)
[2018-04-22] MEDS: Enoxaparin Sodium 40 MG/0.4 ML SYRINGE SC SCH (08:22)
[2018-04-22] MEDS: Senokot S 8.6-50 MG TAB PO SCH (08:25)
[2018-04-22] MEDS: Polyethylene Glycol 3350 17 GM Packet PO SCH (08:25)
--- NOTE | 2018-04-22 10:50 | DIS ---
DATE OF ADMISSION: 04/19/2018 DATE OF DISCHARGE: 04/22/2018 ADMISSION DIAGNOSES: 1. Left-sided pneumonia. 2. Pulmonary nodules. 3. Pleural effusion. 4. Hypoxemia. OTHER DIAGNOSES: 1. History of atrial fibrillation. 2. History of cerebrovascular accident. 3. History of carcinoid tumor in the past. CONSULTATIONS: Dr. Hall for Pulmonary. PROCEDURES: IV antibiotics. CT of chest, neb treatments, oxygen therapy, and echocardiogram. HOSPITAL COURSE: This is an 83-year-old female patient with a history of carcinoid tumor in her lung resected back in 2002, who presented to the emergency department with increased weakness, cough, and shortness of breath. She had a recent hip replacement done 3 to 4 weeks ago. She had been having increased cough and anxiety and noticed increased swelling in her legs. In the emergency department, she was found to have pneumonia with an effusion and possible lung nodules that are suspicious for cancer. She was seen by Dr. Hall for Pulmonary. He did not see any suspicions for carcinoma, but did feel like to add a left-sided pneumonia and pleural effusion and probably diastolic dysfunction. He recommended initiating diuretics. Continuing antibiotics and supportive care including neb treatments and oxygen therapy. She underwent an echocardiogram, which revealed ejection fraction of 55% to 60%, severely dilated left atrium, suggestive of diastolic dysfunction. She did have some improvement with diuresis, but minimum. Her chest x-ray remained stable throughout her hospitalization. She did not require thoracentesis for the pleural effusion. There was some improvement of her symptoms. She was able to ambulate in the lim, but continued to require oxygen and neb treatments and those were arranged for her to have home. She was stable for discharge as per Dr. Hall and arrangements were made for her to be discharged home to continue oral antibiotics, neb treatments, and oxygen therapy until her symptoms continue to resolve. DISCHARGE PHYSICAL EXAMINATION: VITAL SIGNS: Temperature 98.5, pulse is 70, respirations 16 to 18 and comfortable, blood pressure 149/58, and pulse ox is 97% on 2 L and 88% on room air. GENERAL: She is awake and alert, in no acute distress. Speech is clear. NECK: Supple. HEART: Regular rate and rhythm. LUNGS: With rhonchi bilaterally and rales at the bases. No wheezes. DISCHARGE LABORATORY DATA: White blood cell count 7.9, hemoglobin and hematocrit 10 and 33.5, and platelets of 378. Chemistry; sodium 140, potassium 4.8, chloride 102, CO2 of 34, BUN and creatinine 15 and 0.61 with a GFR of greater than 90. Serum glucose of 128. Chest x-ray yesterday revealed bilateral pleural effusions, slightly larger on the left. Bibasilar atelectasis. Mild cardiomegaly. Mild vascular congestion. Minimal change. DISCHARGE MEDICATIONS: Include; 1. Tylenol p.r.n. 2. Albuterol q.6 p.r.n. 3. Xanax at bedtime p.r.n. anxiety. 4. Aspirin 81 mg. 5. Clonidine 0.1 mg t.i.d. p.r.n. systolic over 160. 6. Cardizem 120 mg daily. 7. Pepcid 20 mg b.i.d. 8. Lasix 40 mg daily p.r.n. 9. Hydralazine 50 mg t.i.d. 10. Levaquin 500 mg daily for 7 more days. 11. Metoprolol 100 mg daily. 12. Prednisone 10 mg daily for 7 more days. 13. Senokot p.r.n. 14. Tramadol 50 mg p.r.n. severe pain. FOLLOWUP INSTRUCTIONS: The patient to follow up in my office in 1 week. Follow up with Dr. Hall in 1 to 2 weeks. Follow up with Cardiology for followup on her atrial fibrillation. Job ID: [id number]
--- NOTE | 2018-04-22 10:57 | PRG ---
DATE OF SERVICE: 04/22/2018 Qualify oxygen, the patient's saturations on low-flow O2 were 97% on 2 L. Without oxygen, they were 93% to 94%. When she walked no more than 20 feet, it dropped to 85%. On 2 L, it came back again to 97, so she needs low-flow O2 at 2 L when she ambulates. Discussed with the nurse _pt needs low-flow O2 at 2 L. underlying COPD \\CHF Job ID: [id number] MTDNieves
--- NOTE | 2018-04-22 11:12 | PRG ---
DATE OF SERVICE: 04/22/2018 SUBJECTIVE: This morning, she is awake, alert, and responsive. OBJECTIVE: VITAL SIGNS: Pulse is 70, sats are 97% on 2 L, respiratory rate 18, blood pressure 128/80. CHEST: Decreased breath sounds. No wheezing. CARDIAC: Normal S1, S2. ABDOMEN: No mass. IMPRESSION: Right pleural effusion, pneumonia. PLAN: She is discharged home. Follow up with Dr. Mooney. If pleural effusion remains, she may need a thoracentesis. Job ID: [id number]
--- NOTE | 2018-04-22 12:25 | PRG ---
DATE OF SERVICE: 04/22/2018 ADDENDUM: The patient was found to be hypoxemic as noted. She has underlying COPD and diastolic dysfunction and pleural effusion. Components of COPD she has along with hypoxemia will qualify for the oxygen. Job ID: [id number]
[2018-04-22] MEDS: Sodium Chloride 0.9% 1,000 ML IV SCH (15:12)
[2018-04-22 16:00] VITALS: BP 162/56
[2018-04-22 17:04] VITALS: TEMP 98.5
--- NOTE | 2018-04-24 09:21 | EKG ---
Test Reason : Blood Pressure : / mmHG Vent. Rate : 072 BPM Atrial Rate : 072 BPM P-R Int : 136 ms QRS Dur : 076 ms QT Int : 392 ms P-R-T Axes : 058 035 043 degrees QTc Int : 429 ms Sinus rhythm with Premature atrial complexes Cannot rule out Anterior infarct , age undetermined Abnormal ECG Confirmed by LEVI DOBBINS ([id number]), visual effects editor PILAR FUNEZ ([id number]) on 04/24/2018 9:20:52 AM Referred By: Confirmed By:LEVI DOBBINS
== END 2018-04-22 17:20 | disposition home or self-care (01) | DRG 194 ==
LOC: ERS 20:18 → SURG B 04-18 00:54 → OBSVTOIN 04-19 07:37
PROVIDERS: ADMIT Family Medicine; ATTEND Family Medicine
DX: J18.9 Pneumonia, unspecified organism (principal); J90 Pleural effusion, not elsewhere classified; I10 Essential (primary) hypertension; I48.91 Unspecified atrial fibrillation; R91.8 Other nonspecific abnormal finding of lung field; F41.9 Anxiety disorder, unspecified; R09.02 Hypoxemia; J44.9 Chronic obstructive pulmonary disease, unspecified; Z96.649 Presence of unspecified artificial hip joint; Z86.73 Personal history of transient ischemic attack (TIA), and cerebral infarction without residual deficits; Z90.2 Acquired absence of lung [part of]; Z98.890 Other specified postprocedural states; Z86.012 Personal history of benign carcinoid tumor
CPT/HCPCS: 36415; 71045; 71048; 71275; 80048; 80053; 81003; 83735; 83880; 84484; 85025; 85379; 93005; 93306; 94640; J0456; J0690; J0692; J0696; J1650; J1940; J3370; J7050; J7611; Q9966

== ENCOUNTER 2018-04-27 06:02 | Inpatient (IN) | payer MEDICARE ==
[2018-04-27] MEDS ORDERED: Aspirin 325 MG TAB ONE (07:00)
[2018-04-27 07:06] LABS: #Lymphocytes 1.7 thou/uL (1.20-3.40); #Monocytes 1.3 thou/uL (0.11-0.59); #Neutrophils 9.3 thou/uL (1.40-6.50); %Basophils 0.1 % (0.0-1.0); %Eosinophils 0.2 % (0.0-10.0); %Lymphocytes 13.9 % (21.0-51.0); %Monocytes 10.7 % (0.0-10.0); %Neutrophils 75.1 % (42.0-75.0); Hemoglobin 11.4 g/dL (12.0-16.0); Mean Corpuscular HGB CONC 29.5 g/dL (32.0-36.0); Mean Corpuscular Hemoglobin 19.3 pg (27.0-31.0); Mean Corpuscular Volume 65.6 fL (78.0-98.0); Mean Platelet Volume 8.1 fL (7.4-10.4); Platelet Count 435 thou/uL (130-400); Red Blood Cell (RBC) Count 5.92 mill/uL (4.20-5.40); White Blood Cell (WBC) Count 12.4 thou/uL (4.8-10.8)
[2018-04-27 07:26] LABS: ALT (SGPT) 27 U/L (8-55); AST (SGOT) 21 U/L (5-34); Albumin 3.4 g/dL (3.4-4.8); Alkaline Phosphatase 98 U/L (40-150); Anion Gap 12 mmol/L (10-20); BUN (Urea Nitrogen) 24 mg/dL (9.8-20.1); Bilirubin, Total 0.4 mg/dL (0.2-1.2); CK (CPK) 26 U/L (29-168); Calc. Creatinine Clearance 0 mL/min (70-130); Calcium 9.1 mg/dL (7.8-10.44); Carbon Dioxide 32 mmol/L (23-31); Chloride 99 mmol/L (98-107); Estimated GFR-MDRD 84; Globulin 2.7 g/dL (2.4-3.5); Glucose 127 mg/dL (83-110); Potassium 3.4 mmol/L (3.5-5.1); Protein, Total 6.1 g/dL (6.0-8.3); Sodium 140 mmol/L (136-145)
[2018-04-27] MEDS ORDERED: ISOVUE-370 76%-LOCM 1 ML ONE (07:57)
--- NOTE | 2018-04-27 07:58 | CT ---
CTA OF THE THORAX. INDICATION: History of feeling funny and atrial fibrillation. COMPARISON: Prior exam dated 04/17/2018. FINDINGS: No central or segmental pulmonary embolus is evident. Numerous scattered pulmonary nodules are again seen. The moderate left and small right pleural effusion are again noted. Airspace consolidation i s again noted within the anterolateral left lower lobe as well as the inferior lingula. Mildly promi nent left hilar and mediastinal lymph nodes persist. Visualized upper abdomen is unchanged. Numerous calcified granuloma within the spleen are similar-ap pearing. IMPRESSION: 1. No central or segmental pulmonary embolus demonstrated. 2. Persistent area of airspace consolidation in the left lower lobe and now the lingula is suspiciou s for pneumonia. 3. Persistent moderate left and small right pleural effusion. 4. Persistent scattered pulmonary nodules suspicious for metastatic disease. 5. Stable mild prominence of the lymph nodes at the left hilar region and mediastinum. POS: [facility]
--- NOTE | 2018-04-27 07:59 | RAD ---
CHEST ONE VIEW: INDICATIONS: History of chest pain. COMPARISON: Prior exam, dated 04/21/2018. FINDINGS/IMPRESSION: Left basilar pleural parenchymal opacity and small right pleural effusion persists. Cardiomegaly is stable. A calcified pulmonary nodule within the right mid lung is stable. No pneumothorax is eviden t. IMPRESSION: Stable examination to comparison dated 04/21/2018. POS: [facility]
[2018-04-27 08:23] LABS: Basophilic Stippling SLIGHT = 1-2 cells (100X) (None Seen); Burr Cells SLIGHT = 2-5 cells (100X) (0-1/hpf); Elliptocytes SLIGHT = 2-5 cells (100X) (0-1/hpf); Hemoglobin C Crystals SLIGHT (None Seen); Hypochromia MODERATE=16-30 cells (100X) (0-5/hpf); MDiff Complete? YES; Microcytosis MODERATE=15-30 cells (100X) (0-5/hpf); Platelet Morphology Comment Appears Increased; Polychromasia SLIGHT = 2-3 cells (100X) (0-2/hpf)
[2018-04-27] MEDS ORDERED: Furosemide 40 MG/4 ML VIAL ONE (11:55)
[2018-04-27] MEDS ORDERED: Piperacillin/Tazobactam 4.5 GM VIAL ONE (11:55)
[2018-04-27] MEDS ORDERED: Vancomycin HCl 1.5 GM in Sodium Chloride 0.9% 250 ML 300 ML IVPB SCH (12:15)
[2018-04-27] MEDS ORDERED: cloNIDine 0.1 MG TAB PO PRN (12:56)
[2018-04-27] MEDS ORDERED: ALPRAZolam 0.25 MG TAB PO PRN (12:56)
[2018-04-27] MEDS ORDERED: Acetaminophen 325 MG TAB PO PRN (12:56)
--- NOTE | 2018-04-27 14:31 | HP ---
CHIEF COMPLAINT: Chest pressure, palpitations, shortness of breath, and increased edema. HISTORY OF PRESENT ILLNESS: This is an 83-year-old female with a recent admission on April 18, 2018, for left-sided pneumonia and persistent pleural effusion. She was just a few weeks status post left knee replacement. She ruled out for pulmonary embolism at that time. She was treated for pneumonia and persistent pleural effusion. She was seen by Dr. Hall during that admission. She had slow improvement. She was discharged home on antibiotics, steroids, and neb treatments as well as oxygen therapy and she had been doing quite well. Per the patient and the caregiver yesterday, she had a great day, was not requiring oxygen anymore, but still taking her steroids and nebulizer treatments. This morning, she had an episode, where she just felt funny in her chest, presented to Emergency Department, was found to be in atrial fibrillation with rapid ventricular response. Per the emergency room physician, her heart rate was up into the 130s and 140s. She was started on IV Cardizem and she auto converted back to normal sinus with a heart rate in the 60s and 70s at this time as she is feeling much better. She continues to have a persistent pleural effusion and increasing edema in her bilateral lower extremities in spite of diuretics. Her CT angiogram at this time revealed persistent pulmonary nodules, which were suspicious for metastatic disease and she is now being admitted for further evaluation and treatment. PAST MEDICAL HISTORY: Hypertension, atrial fibrillation paroxysmal, CVA in 2002, and carcinoid tumor removed in 2002. She was found to have diastolic dysfunction on her last admission. PAST SURGICAL HISTORY: Partial left lung lobectomy in 2002, cardiac ablation, and left hip surgery in 2019. FAMILY HISTORY: Not known. SOCIAL HISTORY: Nonsmoker. No alcohol. She lives alone with family and neighbors nearby with assistance. REVIEW OF SYSTEMS: As per the history of present illness. GENERAL: She denies any recent fevers or chills. Denies upper respiratory symptoms. HEENT: Denies headache, visual or hearing changes. CARDIAC: As per the history of present illness. No chest pain at this point. No palpitations. PULMONARY: Positive cough. Positive shortness of breath. Positive dyspnea on exertion. Positive orthopnea. GI: Denies nausea, vomiting, abdominal pain, melena, or hematochezia. : Denies dysuria or hematuria. NEUROLOGIC: Some weakness. No falls. No syncope. PHYSICAL EXAMINATION: VITAL SIGNS: She is afebrile. Pulse of 70 to 75, respirations 12 to 15, blood pressure 137/80, and pulse ox is 96% to 98% on room air. GENERAL: She is awake and alert. No acute distress. Speech is clear. NECK: Supple. No JVD, adenopathy, or bruits. HEART: Regular rate and rhythm with ectopy with 2/6 systolic ejection murmur. LUNGS: With rales bilaterally. Decreased breath sounds on the left side. ABDOMEN: Flat, soft, nontender, and nondistended. No hepatosplenomegaly. EXTREMITIES: 2 to 3+ edema bilaterally. LABORATORY DATA: White blood cell count 12.4, hemoglobin and hematocrit 11.4 and 38.8, and platelets of 435. Sodium 140, potassium 3.4, chloride 99, CO2 of 32, BUN and creatinine 24 and 0.67, and serum glucose of 127. Troponin I is normal at 0.012. Chest x-ray revealed stable basilar pleural-parenchymal opacity with small pleural effusions, calcified pulmonary nodules in the right mid lung is stable. CT chest and thorax revealed no emboli, persistent airspace consolidation in the left lower lobe, and now the lingula suspicious for pneumonia, persistent left and right small pleural effusions, persistent scattered pulmonary nodules suspicious for metastatic disease, stable mild prominence in the lymph nodes, in the left hilar, and mediastinum. ASSESSMENT AND PLAN: This is an 83-year-old female with multiple medical problems with recent admission for pneumonia and pleural effusion, now with episode of atrial fibrillation with rapid ventricular response. 1. Atrial fibrillation with rapid ventricular response. She resolved with IV Cardizem. We will continue as per Cardiology, recent echocardiogram was done. We will likely need to continue Cardizem and beta-mario for rate control. She has been on aspirin, who will need progression of anticoagulation for stroke prevention. 2. Persistent pleural effusion with mediastinal adenopathy and suspicious pulmonary nodules. Consult Pulmonary for re-evaluation. May need to progress with thoracentesis as discussed during the last hospitalization. The patient is reticent to continue with this. I will hold off on antibiotics for suspicious CT for pneumonia as she is clinically not showing signs of any pneumonia. 3. Lower extremity edema, resistant to Lasix. We will start Bumex 1 mg IV b.i.d. and see if that helps with diuresis. 4. Code status. The patient desires full code. Job ID: [id number]
[2018-04-27] MEDS ORDERED: hydrALAZINE 25 MG TAB PO SCH (15:00)
[2018-04-27] MEDS ORDERED: hydrALAZINE 25 MG TAB ONE (16:28)
[2018-04-27] MEDS: hydrALAZINE 25 MG TAB PO SCH ×2 (16:29→21:25)
[2018-04-27 17:35] VITALS: BMI 29.9
[2018-04-27] MEDS ORDERED: Senokot S 8.6-50 MG TAB PO SCH (21:00)
--- NOTE | 2018-04-27 21:13 | CON ---
DATE OF CONSULTATION: 04/27/2018 INDICATION FOR CONSULTATION: An 83-year-old female with left pleural effusion and atrial fibrillation with rapid ventricular response. HISTORY OF PRESENT ILLNESS: This very pleasant 83-year-old female who had a hip fracture, I believe, about 2 weeks ago, almost one month ago was in the hospital, and underwent a left hip fracture repair surgically. Since that time, she had been doing relatively well, but always had some left lower extremity edema. She has been evaluated in the past. She has had no DVT. Today, she was evaluated again. She had no pulmonary emboli. She presented to the hospital again after she was having shortness of breath and lower extremity edema which was worsened. She does have a history of atrial fibrillation, underwent ablation in the past about 4 years ago in [place]. Since that time, she has been placed also on diltiazem hopefully to decrease her risk of recurrence of atrial fibrillation. She says she has had 2 episodes of what she describes as one and a half episodes of atrial fibrillation in the last 4 years, one resolved when she was headed to the emergency room while she was driving and it went away, and the next one occurred today when she arrived in the emergency room at this time, she was having atrial fibrillation with rapid ventricular response, uncertain about exactly how long that had been occurring, but her heart rate was 120. She was given IV diltiazem and now has returned to sinus rhythm. In the meantime, she is still continued to have some shortness of breath. She is on multiple medications. She contributes the lower extremity edema to possible medications and evaluation of her medications does indicate that she is on diltiazem at 240 mg a day, and this may be the etiology of her lower extremity edema, would not account for the left pleural effusion. The chest x-ray did show some multiple small nodules within the lungs, and there was some suspicion of metastatic disease, but otherwise, there is no indication that she has any significant congestive heart failure. Her BNP was not significantly elevated, was actually 160, which was not be compatible, this would not indicate pulmonary edema. She also had an echocardiogram done on the 18 of April that showed ejection fraction of 55% to 60%. She does have evidence of diastolic dysfunction with significant left atrial dilatation with mild to moderate mitral and tricuspid valve regurgitations. At this time, she has been seen by the wage adjuster, Dr. Chapman about 6 months ago, and this apparently was stable at that time. She denies any chest pain, but she does have shortness of breath. PAST MEDICAL HISTORY: Significant for a left lower lobe removal in 2002 for carcinoid. She had no other therapies with that at that time, except for the removal of the left lower lobe. She has had atrial fibrillation ablation in [place] about 4 years ago. She has had a left knee arthroscopic surgery. She has had a left hip fracture repair. She has had a mild CVA in 2002. SOCIAL HISTORY: She has 2 children. No heart disease. She has no alcohol or tobacco abuse. FAMILY HISTORY: She is adopted. ALLERGIES: NONE. MEDICATIONS: At this time, include; 1. Prednisone 10 mg a day. 2. Furosemide 40 mg a day. 3. Aspirin 81 mg a day. 4. Metoprolol 50 mg two q.p.m. 5. Diltiazem 240 mg a day. Previously, she was on 120 mg and 180 mg a day. 6. She is taking levofloxacin 500 mg one daily, which was the end this . This was after her from being in the hospital. 7. Clonidine 0.1 mg p.r.n. for systolic blood pressure elevation. 8. She is taking alprazolam. 9. Hydralazine 50 mg t.i.d. 10. Albuterol. REVIEW OF SYSTEMS: A 12-point review of systems is unremarkable except for shortness of breath and lower extremity edema. PHYSICAL EXAMINATION: GENERAL: Reveals a very pleasant, well-developed, well-nourished, very bright female. VITAL SIGNS: Blood pressure 141/53, heart rate is 72 and regular at this time. HEENT: Shows head to be normocephalic and atraumatic. Carotid pulses are present. I did not hear any bruits. CHEST: Actually is clear except for decreased at the bases on the left side. CARDIOVASCULAR: Reveals a regular rate and rhythm with normal S1, S2. There were no significant murmurs, heaves, thrills, bruits, or rubs. She does have a very soft systolic murmur noted at the upper sternal border. ABDOMEN: Soft and nontender. Positive bowel sounds are present. NEUROLOGIC: There are no symptoms noted. EXTREMITIES: Did show 2+ to 3+ lower extremity edema from the midthigh down to the feet. Pedal pulses are present. DIAGNOSTIC STUDIES: EKG shows decreased R-wave progression from V1 through V3, with atrial fibrillation with rapid ventricular response, appears to be more stable at this time after she has been controlled with IV diltiazem and converted to sinus rhythm. I am uncertain as to any comparison with an old EKG as far as decreased R-wave progression is concerned, we will evaluate this. This could be due to hypertension, age. I will try to compare that with an older EKG. IMPRESSION: 1. Atrial fibrillation with rapid ventricular response, which may have been exacerbated by albuterol treatments. We will try to hold at this time. We will defer to the electric stop installer for further evaluation. 2. Atrial fibrillation is concerned, I will stop the diltiazem, and we will try to start her on Multaq to see whether or not this will control her bout of atrial fibrillation; however, she has not had any atrial fibrillation until these episodes just today and no episodes within 4 years, hopefully which she would not be at high risk for having atrial fibrillation. We will need to find some other medication, however, to treat the hypertension. 3. Hypertension. We will need to adjust her medications in order to control the hypertension. We may try to increase her beta blockers even further to 100 mg twice a day and hopefully, she will not become too bradycardic. She says she has had some rapid heart rate with atrial fibrillation in the past. 4. History of lower extremity edema, and this may be due to the diltiazem. There has been no indication that she has any deep venous thrombosis or pulmonary embolus. We will see whether or not the edema resolves after we have stopped the diltiazem. Job ID: [id number]
[2018-04-27] MEDS: Lisinopril 10 MG TAB PO SCH (21:24)
[2018-04-27] MEDS: Famotidine 20 MG TAB PO SCH (21:25)
[2018-04-27] MEDS: Bumetanide 1 MG/4 ML VIAL IVP SCH (21:25)
[2018-04-27] MEDS: Senokot S 8.6-50 MG TAB PO SCH (21:25)
[2018-04-28] MEDS: Bumetanide 1 MG/4 ML VIAL IVP SCH ×2 (06:24→13:33)
[2018-04-28 07:21] LABS: Anion Gap 8 mmol/L (10-20); BUN (Urea Nitrogen) 19 mg/dL (9.8-20.1); Calc. Creatinine Clearance 83 mL/min (70-130); Calcium 8.2 mg/dL (7.8-10.44); Carbon Dioxide 35 mmol/L (23-31); Chloride 101 mmol/L (98-107); Estimated GFR-MDRD Greater than 90; Glucose 105 mg/dL (83-110); Potassium 3.1 mmol/L (3.5-5.1); Sodium 141 mmol/L (136-145)
--- NOTE | 2018-04-28 07:56 | PRG ---
DATE OF SERVICE: 04/28/2018 SUBJECTIVE: The patient is feeling much better. She has had significant output urine output since starting the Bumex diuretic. Denies chest pain, shortness of breath has improved. She continues to have dyspnea on exertion with walking in the room, improved swelling. OBJECTIVE: VITAL SIGNS: Temperature 98.1, pulse of 77, respirations 15, blood pressure 150/65, pulse ox is 92-93 percent on room air. GENERAL: She is awake and alert, in no acute distress. Speech is clear. NECK: Supple. HEART: Regular rate and rhythm. LUNGS: With rales at the bases and scattered rhonchi. No wheezes. ABDOMEN: Obese. EXTREMITIES: With 2+ edema. LABORATORY DATA: Sodium 141, potassium 3.1, chloride 101, CO2 of 35, BUN and creatinine 19 and 0.60, GFR greater than 90, serum glucose of 105 and a TSH of 1.22. ASSESSMENT AND PLAN: This is an 83-year-old female. The patient with recent admission for left lower lobe pneumonia and persistent pleural effusion, now with increased edema, history of diastolic dysfunction. 1. Diastolic dysfunction and fluid retention. We will continue IV Bumex. Dr. Rodriguez has discontinued the diltiazem. 2. Paroxysmal atrial fibrillation, now back in normal sinus rhythm. Again, Cardiology is giving her a trial of Multaq since stopping the diltiazem. 3. Pleural effusion and recent pneumonia, questionable pulmonary nodules. Awaiting pulmonary evaluation, considering thoracentesis on last admission. Job ID: [id number]
[2018-04-28] MEDS: Senokot S 8.6-50 MG TAB PO SCH ×2 (08:25→20:47)
[2018-04-28] MEDS: hydrALAZINE 25 MG TAB PO SCH ×3 (08:26→20:48)
[2018-04-28] MEDS: Lisinopril 10 MG TAB PO SCH (08:26)
[2018-04-28] MEDS: Aspirin 81 mg Enteric Coated Tablet PO SCH (08:26)
[2018-04-28] MEDS: predniSONE 20 MG TAB PO SCH (08:26)
[2018-04-28] MEDS: Famotidine 20 MG TAB PO SCH ×2 (08:26→20:47)
[2018-04-28] MEDS: Enoxaparin Sodium 40 MG/0.4 ML SYRINGE SC SCH (08:27)
--- NOTE | 2018-04-28 08:31 | RAD ---
CHEST ONE VIEW: INDICATIONS: History of pleural effusion. COMPARISON: 04/27/2018 FINDINGS: The examination is unchanged with the comparison. No pneumothorax is evident. POS: BH
[2018-04-28] MEDS ORDERED: Aspirin 81 mg Enteric Coated Tablet PO SCH (09:00)
[2018-04-28] MEDS ORDERED: Potassium Chloride 20 MEQ TAB PO SCH ×2 (09:00→13:45)
--- NOTE | 2018-04-28 09:13 | PDOC.CTH ---
Cardiology Progress Note - Subjective The pt seen and examined. No overnight events. No cardiac complaints. She does not wear compression stockings. - Objective Vital Signs Temp Pulse Resp BP BP BP Pulse Ox 04/28/18 08:26 72 176/82 H 04/28/18 07:30 97.7 F 72 18 176/82 H 94 L 04/28/18 04:00 73 150/65 H 04/27/18 23:22 98.1 F 77 15 160/70 H 92 L 04/27/18 22:00 77 153/67 H 04/27/18 21:25 75 161/108 H 04/27/18 21:24 161/108 H Weight 164 lb 04/27/18 04/28/18 04/29/18 06:59 06:59 06:59 Intake Total 300 Balance 300 - Physical Examination General/Neuro: alert & oriented x3 Neck: no JVD present Lungs: CTA (diminished at bases) Heart: RRR Abdomen: soft Extremities: other: (2-3+ pitting BLE edema) - Telemetry Telemetry Rhythm: SR - Labs Result Diagrams: 04/27/18 06:35 04/29/18 05:49 Troponin/CKMB Troponin I 0.012 ng/mL (< 0.028) 04/27/18 06:35 - Assessment/Plan 1. Acute on Chronic diastolic HF - improving with Bumex 1mg IV BID; on BBlocker and HARVEY; 2. Afib with RVR with hx of Afib ablation in 2014 - remains in SR since the pt was tx to tele; Off Diltiazem 2/2 edema; On Metoprolol 100mg qd and ASA 81mg; may start Multaq 3. HTN - increase Lisinopril from 10mg to 20mg BID. 4. Lt pleural effusion 5. hx of CVA in 2002 6. Mod MR and TR - cont. to monitor MAR reviewed Pt.seen and eval.by me.I agree with the A/P by the MOTOR ROUTE CARRIER.She continues tohave some LE edema.She is diuresing.The BPis stillelevarted.She is symptomatically improved.Maintaining NSR. Review of Systems - Review of Systems Constitutional: reports: no symptoms reported EENTM: reports: no symptoms reported Respiratory: reports: no symptoms reported Cardiac (ROS): reports: no symptoms reported ABD/GI: reports: no symptoms reported
[2018-04-28] MEDS ORDERED: Lisinopril 10 MG TAB PO SCH (10:00)
--- NOTE | 2018-04-28 11:34 | PRG ---
DATE OF SERVICE: 04/28/2018 SUBJECTIVE: Maryjo Mendes, this morning, she is awake, alert, and responsive. She is better. She says during the hospital after she used the nebulizer went into atrial fibrillation. OBJECTIVE: VITAL SIGNS: Temperature 97, blood pressure 176/82, sats 90% on room air, respiratory rate 18. CHEST: Decreased breath sounds. No wheezing. CARDIAC: Normal S1, S2. No gallops. ABDOMEN: No masses. DIAGNOSTIC DATA: Chest x-ray shows left pleural effusion, left-sided infiltrate. CAT scan confirmed the above findings. IMPRESSION: 1. Atrial fibrillation. 2. Multiple small lung nodules, left pleural base mass and pleural effusion. PLAN: I offered to do a thoracentesis again, she has declined at this stage. She says she wants to wait for a month before she makes a decision. DISPOSITION: As per primary care physician. Job ID: [id number]
--- NOTE | 2018-04-28 14:52 | CON ---
DATE OF CONSULTATION: 04/28/2018 SERVICE: Pulmonary Medicine. REASON FOR CONSULT: Pleural effusion. HISTORY OF PRESENT ILLNESS: The patient is a very pleasant 83-year-old white female with past medical history significant for a recent episode of pneumonia. She was actually discharged from the hospital on the 22 April 2018. Since then, she has had increasing lower extremity swelling and increasing shortness of breath that prompted her to return to the emergency department. She was discovered to be in atrial fibrillation with RVR and fluid volume overloaded. She did not feel sicker. She was not having cough, bringing up any purulent sputum. Although myalgias, muscle aches and the fatigue had improved. Otherwise, she had returned to her usual state of health. It was just that she had increasing dyspnea on exertion, orthopnea. Overnight, she got a dose of Lasix, and she feels considerably better. All of her energy has returned. She feels that she is close to baseline once again. Her strength is actually returning as well. She did not have any significant weight reduction recently or hemoptysis, night sweats. PAST MEDICAL HISTORY: 1. Atrial fibrillation, paroxysmal. 2. History of CVA in 2012. 3. 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 4. Hypertension. PAST SURGICAL HISTORY: 1. Lobectomy of the left lower lobe. 2. Cardiac ablation. 3. Hip surgery. FAMILY HISTORY: Noncontributory. SOCIAL HISTORY: Negative for alcohol, tobacco, or illicit drug use. ALLERGIES: NO KNOWN DRUG ALLERGIES. MEDICATIONS: List of her inpatient medications was reviewed. No specific updates were made at this time. REVIEW OF SYSTEMS: General, head ears, eyes, nose, throat, cardiovascular, respiratory, GI, , musculoskeletal, neurologic, and skin is negative except as mentioned in HPI. PHYSICAL EXAMINATION: VITAL SIGNS: Afebrile, pulse 73, blood pressure 183/85, respirations 19 saturation 93% on room air. GENERAL: The patient is awake and alert, in no apparent distress. LUNGS: Crackles are present. There is absolutely no prolonged expiratory phase. There is wonderful air entry. No rhonchi or wheezing appreciated. HEART: Normal rate. Regular. ABDOMEN: Soft nontender nondistended bowel sounds are positive. MUSCULOSKELETAL: No cyanosis or clubbing. There is 2 to 3+ pitting in the bilateral lower extremities, which is significantly improved compared to yesterday. GENITOURINARY: Nonfocal. NEUROLOGIC: Grossly nonfocal. LABORATORY DATA: WBC 12.4, hemoglobin 11.4 and stable, platelets 435,000. Neutrophil count is essentially normal. D-dimer 2.21 prior to the last hospital stay. Basic metabolic profile is essentially unremarkable except for a bicarb of 35, potassium 3.1. TSH 1.2. Liver function studies are unremarkable. Urinalysis is negative. Blood cultures x2 are unremarkable. ASSESSMENT: 1. Acute hypoxic respiratory failure, resolved. 2. Ubeak-gl-yorfxuv diastolic heart failure. 3. Atrial fibrillation with rapid ventricular rate, currently rate controlled. 4. Community-acquired pneumonia, recent and improving. 5. Pulmonary nodules, small. 6. History of carcinoid, status post left lower lobectomy. DISCUSSION AND PLAN: My suspicion is the patient is having a volume overload event. This has resulted in bilateral pleural effusions. The left-sided effusion is atypical in appearance because of the previous lobectomy and subsequent scar tissue that developed in that space. I gave the patient multiple options today, we could do a thoracentesis and drained that fluid, or kick the can down the road by about 4 weeks and repeat a chest x-ray and/or CT scan in the outpatient setting to see if this space has resolved. She will need a repeat CT scan ultimately in 6 months to follow up the small pulmonary nodules that could be consistent with volume overload state and intrapulmonary lymph nodes. The infiltrate is getting much better compared to the CT scan from 10 days ago. As such, I do think this is just simply an evolving airspace opacification from a previous pneumonia. Please call with additional questions or concerns. 70 minutes have been devoted to this patient in various activities. I personally reviewed all imaging studies and laboratory data noted within this document. For fifty percent of this time, I was interacting with the patient at the bedside or coordinating care with the care team. For the remainder of the time I was immediately available to the patient in the hospital unit. Job ID: [id number] [facility]
[2018-04-28] MEDS: cloNIDine 0.1 MG TAB PO PRN (16:58)
[2018-04-28] MEDS ORDERED: Lisinopril 20 MG TAB PO SCH (21:00)
[2018-04-29] MEDS: cloNIDine 0.1 MG TAB PO PRN (03:47)
[2018-04-29] MEDS: Bumetanide 1 MG/4 ML VIAL IVP SCH ×2 (06:08→13:41)
[2018-04-29 06:50] LABS: Anion Gap 8 mmol/L (10-20); BUN (Urea Nitrogen) 15 mg/dL (9.8-20.1); Calc. Creatinine Clearance 92 mL/min (70-130); Calcium 8.3 mg/dL (7.8-10.44); Carbon Dioxide 37 mmol/L (23-31); Chloride 101 mmol/L (98-107); Estimated GFR-MDRD Greater than 90; Glucose 91 mg/dL (83-110); Magnesium 2.1 mg/dL (1.6-2.6); Potassium 3.2 mmol/L (3.5-5.1); Sodium 143 mmol/L (136-145)
--- NOTE | 2018-04-29 08:35 | PDOC.CTH ---
Cardiology Progress Note - Subjective The pt seen and examined. No cardiac complaints. She reported that she could not sleep well last night due to pressure like discomfort to bilat diaphragm with spine position. - Objective Vital Signs Temp Pulse Resp BP Pulse Ox 04/29/18 06:08 18 165/87 H 98 04/29/18 03:37 92 L 04/29/18 03:30 97.6 F 69 20 181/76 H 92 L Weight 163 lb 6.4 oz 04/28/18 04/29/18 04/30/18 06:59 06:59 06:59 Intake Total 300 1200 Output Total 6400 Balance 300 -5200 - Physical Examination General/Neuro: alert & oriented x3 Neck: no JVD present Lungs: CTA (diminished at bases) Heart: RRR Abdomen: soft Extremities: other: (2-3+ pitting BLE edema) - Telemetry Telemetry Rhythm: SR - Labs Result Diagrams: 04/27/18 06:35 04/29/18 05:49 Troponin/CKMB Troponin I 0.012 ng/mL (< 0.028) 04/27/18 06:35 - Assessment/Plan 1. Acute on Chronic diastolic HF - improving with Bumex 1mg IV BID; on BBlocker and HARVEY; 2. Afib with RVR with hx of Afib ablation in 2014 - remains in SR since the pt was tx to tele; Off Diltiazem 2/2 edema; On Metoprolol 100mg qd and ASA 81mg; may start Multaq 3. HTN - increase Lisinopril from 20mg to 40mg BID and Hydralazine from 50mg to 75mg TID 4. Lt pleural effusion - managed by Horn Player 5. hx of CVA in 2002 6. Mod MR and TR - cont. to monitor MAR reviewed Pt.seen and eval.by me.I agree with the A/P by the SHANK STITCHER. continue present Rx. Add nitrates for BP control. Review of Systems - Review of Systems Constitutional: reports: weakness EENTM: reports: no symptoms reported Respiratory: reports: no symptoms reported Cardiac (ROS): reports: no symptoms reported ABD/GI: reports: no symptoms reported : reports: no symptoms reported
[2018-04-29] MEDS: Lisinopril 20 MG TAB PO SCH ×2 (08:55→21:01)
[2018-04-29] MEDS: Senokot S 8.6-50 MG TAB PO SCH ×2 (08:56→21:02)
[2018-04-29] MEDS: hydrALAZINE 25 MG TAB PO SCH ×3 (08:56→21:00)
[2018-04-29] MEDS: Famotidine 20 MG TAB PO SCH ×2 (08:57→21:00)
[2018-04-29] MEDS: Aspirin 81 mg Enteric Coated Tablet PO SCH (08:57)
[2018-04-29] MEDS: predniSONE 20 MG TAB PO SCH (08:57)
[2018-04-29] MEDS: Enoxaparin Sodium 40 MG/0.4 ML SYRINGE SC SCH (08:58)
[2018-04-29] MEDS ORDERED: Potassium Chloride 20 MEQ TAB PO SCH (09:00)
[2018-04-30] MEDS: Bumetanide 1 MG/4 ML VIAL IVP SCH (06:21)
[2018-04-30] MEDS ORDERED: Potassium Chloride 20 MEQ TAB PO SCH ×2 (09:00→09:30)
--- NOTE | 2018-04-30 09:02 | PDOC.CTH ---
Cardiology Progress Note - Subjective The pt seen and examined. No cardiac complaints. She walked twice yesterday without any SOB or cardiac complaints. - Objective Vital Signs Temp Pulse Resp BP Pulse Ox 04/30/18 07:25 98 F 54 L 18 151/67 H 97 04/30/18 03:30 98.2 F 57 L 18 136/65 92 L 04/29/18 21:00 70 Weight 163 lb 6.4 oz 04/29/18 04/30/18 05/01/18 06:59 06:59 06:59 Intake Total 1200 980 Output Total 6400 3290 Balance -5200 -2310 - Physical Examination General/Neuro: alert & oriented x3 Neck: no JVD present Lungs: other: (diminished at bases) Heart: RRR Abdomen: soft Extremities: other: (3+ pitting BLE edema to up to upper thighs) - Telemetry Telemetry Rhythm: SR - Labs Result Diagrams: 04/27/18 06:35 04/29/18 05:49 Troponin/CKMB Troponin I 0.012 ng/mL (< 0.028) 04/27/18 06:35 - Assessment/Plan 1. Acute on Chronic diastolic HF - still edema to BLE tighs; however, improving with Bumex 1mg IV BID, which was changed to PO form from this PM; on BBlocker and HARVEY; 2. Afib with RVR with hx of Afib ablation in 2014 - remains in SR since the pt was tx to tele; Off Diltiazem 2/2 edema; On Metoprolol 100mg qd and ASA 81mg since the episode of Afib was less than 6 hours; cont. bblocker for now and will refer to EP for further Afib episode 3. HTN - cont. current med tx 4. Lt pleural effusion - managed by Vendor Quality Supervisor 5. hx of CVA in 2002 6. Mod MR and TR - cont. to monitor MAR reviewed Pt. seen and eval. by me. I agree with the A/P by the SECRETARIAL STENOGRAPHER. The CXR is improved. She has a chronic left pleural effusion. She can be d/c'd to home. F/U with me in 2 weeks. RRR. One episode of SVT -short. asymptomatic. continue present meds. Review of Systems - Review of Systems Constitutional: reports: no symptoms reported EENTM: reports: no symptoms reported Respiratory: reports: no symptoms reported Cardiac (ROS): reports: no symptoms reported ABD/GI: reports: no symptoms reported : reports: no symptoms reported Musculoskeletal: reports: no symptoms reported Skin: reports: no symptoms reported
[2018-04-30] MEDS: Aspirin 81 mg Enteric Coated Tablet PO SCH (09:28)
[2018-04-30] MEDS: hydrALAZINE 25 MG TAB PO SCH (09:28)
[2018-04-30] MEDS: Enoxaparin Sodium 40 MG/0.4 ML SYRINGE SC SCH (09:28)
[2018-04-30] MEDS: Lisinopril 20 MG TAB PO SCH (09:29)
[2018-04-30] MEDS: Senokot S 8.6-50 MG TAB PO SCH (09:29)
[2018-04-30] MEDS: Famotidine 20 MG TAB PO SCH (09:30)
[2018-04-30] MEDS: predniSONE 20 MG TAB PO SCH (09:30)
--- NOTE | 2018-04-30 09:40 | DIS ---
DATE OF ADMISSION: 04/27/2018 DATE OF DISCHARGE: 04/30/2018 ADMISSION DIAGNOSIS: 1. Atrial fibrillation with RVR 2. Congestive heart failure exacerbation. 3. Persistent pleural effusion. 4. Fluid overload. 5. Pulmonary nodules. DISCHARGE DIAGNOSES: 1. Congestive heart failure, improved. 2. Atrial fibrillation, rate controlled. OTHER DIAGNOSES: 1. Hypertension. 2. Hyperlipidemia. 3. History of carcinoid tumor. 4. Pulmonary nodules, suspicious. CONSULTATIONS: 1. Dr. Rodriguez for Cardiology. 2. Dr. aLzo for Pulmonary. PROCEDURES: CT angiogram, chest x-ray, and IV diuresis. HOSPITAL COURSE: This is an 83-year-old female patient with a recent admission for left-sided pneumonia and hypoxemia. She improved and was discharged home in good condition with oxygen nebs and antibiotics. She has had increased swelling, which worsened with Cardizem. Electrophysiology had recently increased her Cardizem dosage and the swelling continued to worsen as an outpatient. She developed more shortness of breath and had some palpitations. In the emergency department, she was found to be in atrial fibrillation with rapid ventricular response. Her rate improved with IV Cardizem and then she cardioverted on her own back to normal sinus rhythm. Throughout her hospitalization, she has remained in normal sinus. Blood pressure medicines were adjusted to better control her blood pressure. Dr. Rodriguez saw the patient in evaluation and discussed options. I did not recommend continuing the diltiazem due to her swelling. I have started her on Imdur for better blood pressure control as well as lisinopril and metoprolol for rate control as well. They considered Multaq but did not start that. She had improvement in her fluid overload with IV Bumex. Dr. Hall and Dr. Lazo saw the patient in evaluation for the persistent pleural effusion, pulmonary nodules, and recent pneumonia. It felt like it was mostly the pulmonary nodules were chronic and the fluid was mostly due to the recent pneumonia. Other recommended steroids and continue diuresis as the patient continued to improve. No thoracentesis was necessary. The patient had improvement of her symptoms back to her baseline except for continued to have lower extremity edema. She was not having any chest pain, some shortness of breath improved with oxygen and she was stable for discharge on the day of discharge. DISCHARGE PHYSICAL EXAMINATION: VITAL SIGNS: Temperature 98.0, pulse of 54 to 70, respirations 18, blood pressure 151/67, and pulse ox is 92% to 95%. GENERAL: She is an awake and alert. No acute distress. Speech is clear. NECK: Supple. HEART: Regular rate and rhythm. LUNGS: Clear bilaterally. No wheeze, rales, or rhonchi. ABDOMEN: Obese. EXTREMITIES: With 1 to 2+ pitting edema bilaterally, but improved from admission. LABORATORY DATA: Sodium 143, potassium 3.2, chloride 101, CO2 of 37, BUN and creatinine 15 and 0.54 with a GFR over 90. Serum glucose of 91, calcium of 8.3. TSH of 1.2. DISCHARGE MEDICATIONS: Include; 1. Tylenol p.r.n. 2. Xanax 0.25 mg at bedtime p.r.n. anxiety. 3. Aspirin 81 mg daily. 4. Bumex 1 mg p.o. b.i.d. 5. Clonidine p.r.n. 6. Pepcid 20 mg b.i.d. 7. Hydralazine 75 mg t.i.d. 8. Imdur 30 mg daily. 9. Lisinopril 40 mg b.i.d. 10. Metoprolol 100 mg daily. 11. Prednisone 10 mg daily for 5 more days. FOLLOWUP INSTRUCTIONS: The patient to follow up in my office in 1 week. Follow up with Dr. Lazo in 1 month and follow up with Dr. Rodriguez in 1 to 2 weeks. Job ID: [id number] MTDD
--- NOTE | 2018-04-30 11:01 | RAD ---
2 VIEWS CHEST: Date: 04/30/18 COMPARISON: 04/28/18. HISTORY: Pleural effusions. FINDINGS: Two views of the chest show an enlarged but stable cardiomediastinal silhouette with atherosclerotic calcifications in the aorta. Increased interstitial lung markings are present. Calcified granuloma pr ojects over the mid portion of the left thorax. There is a small left pleural effusion. IMPRESSION: Stable exam. POS: ENRIQUE
[2018-04-30 11:24] VITALS: BP 136/64; TEMP 98.1
--- NOTE | 2018-04-30 15:51 | PRG ---
DATE OF SERVICE: 04/30/2018 SUBJECTIVE: The patient is doing great from respiratory standpoint. Breathing comfortably. Denies any chest pain, fevers, or chills. Otherwise, there has been no interval change to her condition. Overnight, she got weaned down to room air. She is not getting lightheaded when standing. She actually feels that her strength is improving. OBJECTIVE: VITAL SIGNS: Afebrile, pulse 71, blood pressure 136/64, respirations 18, and saturation 94% on room air. GENERAL: The patient is awake and alert, in no apparent distress. LUNGS: Excellent air entry without any prolonged expiratory phase. Wheezing is not present. Crackles are noted. No rhonchi. HEART: Normal rate, regular. ABDOMEN: Soft, nontender, and nondistended. Bowel sounds are positive. MUSCULOSKELETAL: No cyanosis or clubbing. There is 2 to 3+ pitting in the bilateral lower extremities. : No Maher. NEUROLOGIC: Nonfocal. LABORATORY DATA: Sodium 143, potassium 3.2. Basic metabolic profile and magnesium are otherwise unremarkable. Blood cultures x2 remain negative. DIAGNOSTIC DATA: Chest x-ray demonstrates a small right-sided pleural effusion, and [id number] left-sided pleural effusion. These are roughly stable compared to prior. There is left cephalization, bulla, and pulmonary vascular congestion. There is less fluid in the fissures. ASSESSMENT: 1. Acute hypoxic respiratory failure, resolved. 2. Acute on chronic diastolic heart failure. 3. Atrial fibrillation with rapid ventricular response, currently rate controlled. 4. Community-acquired pneumonia, recent and improving. 5. Pulmonary nodules, small. 6. History of carcinoid, status post left lower lobectomy. DISCUSSION AND PLAN: The patient is doing fine from respiratory standpoint. At this point, she can be considered for transition out of the hospital. I will have her follow up with me in clinic in four weeks. At that point, we will repeat a chest x-ray. If pleural fluid on the left persist, thoracentesis will be considered at that time. Ultimately, a repeat CT of the chest will be required in October of 2018 to follow up the small pulmonary nodules that are likely associated with her volume. Pulmonary Critical Care will continue to follow along if she remains in-house, but from my perspective, she is stable for transition home today if Cardiology is okay with that. Job ID: [id number]
[2018-04-30] MEDS ORDERED: Bumetanide 1 MG TAB PO SCH (16:30)
[2018-05-01] MEDS ORDERED: Potassium Chloride 20 MEQ TAB PO SCH (08:00)
--- NOTE | 2018-05-01 18:47 | EKG ---
Test Reason : CHEST PAIN Blood Pressure : / mmHG Vent. Rate : 120 BPM Atrial Rate : 170 BPM P-R Int : 000 ms QRS Dur : 088 ms QT Int : 320 ms P-R-T Axes : 000 018 029 degrees QTc Int : 452 ms Atrial fibrillation with rapid ventricular response Possible Anterior infarct , age undetermined Abnormal ECG Confirmed by LAUREANO FITCH, ALICJA Mathur ([id number]), video tape editor LAURA SIERRA ([id number]) on 05/01/2018 6:47:22 PM Referred By: LAUREANO Confirmed By:ALICJA TINSLEY MD
== END 2018-04-30 13:54 | disposition home or self-care (01) | DRG 291 ==
LOC: ERS 06:02 → ERHOLD 10:27 → 2NO 17:25
PROVIDERS: ADMIT Family Medicine; ATTEND Family Medicine
DX: I11.0 Hypertensive heart disease with heart failure (principal); J96.01 Acute respiratory failure with hypoxia; I50.33 Acute on chronic diastolic (congestive) heart failure; I08.1 Rheumatic disorders of both mitral and tricuspid valves; I48.91 Unspecified atrial fibrillation; Z96.652 Presence of left artificial knee joint; Z86.73 Personal history of transient ischemic attack (TIA), and cerebral infarction without residual deficits; Z98.890 Other specified postprocedural states; Z90.2 Acquired absence of lung [part of]; Z79.82 Long term (current) use of aspirin; Z79.899 Other long term (current) drug therapy
CPT/HCPCS: 36415; 71045; 71046; 71275; 80048; 80053; 82550; 83735; 84443; 84484; 85025; 87040; 93005; 94760; 96365; 96366; 96367; 96375; J1650; J1940; J2543; J3370; J3490; J7050; Q9966

== ENCOUNTER 2018-05-11 03:23 | Inpatient (IN) | payer MEDICARE ==
[2018-05-11] MEDS ORDERED: Magnesium 2 GM/50 ML BAG (IN WATER) ONE (03:39)
[2018-05-11 04:04] LABS: #Basophils 0.1 thou/uL (0.0-0.2); #Eosinphils 0.2 thou/uL (0.0-0.7); #Lymphocytes 4.6 thou/uL (1.20-3.40); #Monocytes 1.2 thou/uL (0.11-0.59); #Neutrophils 4.2 thou/uL (1.40-6.50); %Basophils 0.9 % (0.0-1.0); %Eosinophils 1.6 % (0.0-10.0); %Lymphocytes 44.5 % (21.0-51.0); %Monocytes 11.7 % (0.0-10.0); %Neutrophils 41.3 % (42.0-75.0); Hemoglobin 11.4 g/dL (12.0-16.0); Mean Corpuscular HGB CONC 30.1 g/dL (32.0-36.0); Mean Corpuscular Hemoglobin 19.7 pg (27.0-31.0); Mean Corpuscular Volume 65.4 fL (78.0-98.0); Mean Platelet Volume 9.2 fL (7.4-10.4); Platelet Count 289 thou/uL (130-400); RBC Distribution Width 15.2 % (11.5-14.5); Red Blood Cell (RBC) Count 5.79 mill/uL (4.20-5.40); White Blood Cell (WBC) Count 10.2 thou/uL (4.8-10.8)
[2018-05-11 04:06] LABS: PTT 28.8 SEC (22.9-36.1)
[2018-05-11 04:16] LABS: ALT (SGPT) 25 U/L (8-55); AST (SGOT) 18 U/L (5-34); Albumin 3.8 g/dL (3.4-4.8); Alkaline Phosphatase 79 U/L (40-150); Anion Gap 14 mmol/L (10-20); BUN (Urea Nitrogen) 15 mg/dL (9.8-20.1); Calc. Creatinine Clearance 0 mL/min (70-130); Calcium 9.4 mg/dL (7.8-10.44); Carbon Dioxide 29 mmol/L (23-31); Chloride 104 mmol/L (98-107); Estimated GFR-MDRD 80; Globulin 2.4 g/dL (2.4-3.5); Glucose 128 mg/dL (83-110); Magnesium 2.3 mg/dL (1.6-2.6); Potassium 3.3 mmol/L (3.5-5.1); Protein, Total 6.2 g/dL (6.0-8.3); Sodium 144 mmol/L (136-145)
[2018-05-11] MEDS ORDERED: Diltiazem HCl 125 MG, Admixture Fee 1 EACH in Sodium Chloride 0.9% 100 ML IVPB SCH (04:30)
[2018-05-11] MEDS ORDERED: Aspirin Chewable 81 MG TAB ONE ×2 (05:02)
[2018-05-11 07:29] VITALS: BMI 27.7
[2018-05-11] MEDS ORDERED: ALPRAZolam 0.25 MG TAB PO PRN ×2 (08:10)
[2018-05-11] MEDS ORDERED: Acetaminophen 325 MG TAB PO PRN (08:10)
[2018-05-11] MEDS ORDERED: cloNIDine 0.1 MG TAB PO PRN (08:10)
[2018-05-11] MEDS ORDERED: Iopamidol 370 76% 100 ML VIAL ONE (08:27)
[2018-05-11] MEDS ORDERED: Enoxaparin Sodium 40 MG/0.4 ML SYRINGE SC SCH (09:00)
[2018-05-11] MEDS ORDERED: Aspirin 81 mg Enteric Coated Tablet PO SCH (09:00)
[2018-05-11] MEDS: Lisinopril 20 MG TAB PO SCH ×2 (09:26→20:21)
[2018-05-11] MEDS: Senokot S 8.6-50 MG TAB PO SCH ×3 (09:26→20:22)
[2018-05-11] MEDS: hydrALAZINE 25 MG TAB PO SCH ×3 (09:27→20:21)
[2018-05-11] MEDS: Famotidine 20 MG TAB PO SCH ×2 (09:27→20:20)
[2018-05-11] MEDS: Aspirin 81 mg Enteric Coated Tablet PO SCH (09:28)
--- NOTE | 2018-05-11 10:16 | HP ---
CHIEF COMPLAINT: Chest pressure, palpitations. HISTORY OF PRESENT ILLNESS: This is an 83-year-old female patient with recent admission on April 27, 2018, with AFib and rapid ventricular response and CHF exacerbation, who was discharged home in good condition. During that hospitalization, she was seen in followup and was doing quite well with her heart rate stable and no symptoms. She followed up with Cardiology and Pulmonary as well. Early this morning, she was woken up with chest pain, which she describes as pressure like an elephant sitting on her chest, weakness and sweating profusely. She felt panicky and pain was moving to both arms. She presented to the emergency department early this morning. She initially had noted normal cardiac enzymes and was found to be in AFib with rapid ventricular response with a heart rate up into the 150s. She was started on IV Cardizem. At that time, her symptoms improved as far as not having any further chest pressure, diaphoresis, or weakness. She is now feeling back at her baseline. She spontaneously converted back to normal sinus with IV Cardizem as she has done in the past, but she would like to not continue to go back and forth between AFib and normal sinus rhythm. She does have a history of anxiety. Her last exacerbation of AFib was felt to be triggered by the albuterol nebulizer treatments, which she was getting for her recent pneumonia. This morning, she denies any new triggers. She does state that she was feeling hot in the room. She is now back at her baseline. PAST MEDICAL HISTORY: Hypertension; history of atrial fibrillation, chronic and paroxysmal; history of a CVA in 2002; history of carcinoid lung tumor removed in 2002; history of diastolic dysfunction; and history of noncompliance in the past. Recent admission for left sided pneumonia with persistent pleural effusion. Pulmonary nodules followed by Dr Lazo. PAST SURGICAL HISTORY: Partial left lung lobectomy in 2002, cardiac ablation in 2013 for atrial fibrillation, and left hip repair in 2019. Following her cardiac ablation, she was placed on Coumadin, which resulted in spontaneous bleeding and a hematoma. FAMILY HISTORY: No heart disease. No diabetes. SOCIAL HISTORY: Nonsmoker. No alcohol. She lives alone with family and neighbors nearby. She does have regular assistance with caregivers. REVIEW OF SYSTEMS: As per the history of present illness. CONSTITUTIONAL: No recent fevers or chills. No recent illness. HEENT: Denies headache, visual or hearing changes. CARDIAC: As per the history of present illness. PULMONARY: Recent episode of pneumonia with persistent pleural effusion, followed by Pulmonary. No hemoptysis. GASTROINTESTINAL: No nausea, vomiting, abdominal pain, melena, or hematochezia. GENITOURINARY: No history of dysuria or hematuria. NEUROLOGIC: Positive weakness during episode this morning, but this appears to have resolved. No seizures. No syncope. MUSCULOSKELETAL: History of hip fracture. PHYSICAL EXAMINATION: VITAL SIGNS: Temperature 98.8, pulse of 60, respirations 16, blood pressure 173 /79, and pulse ox is 94% on room air. GENERAL: She is awake and alert. Speech is clear. NECK: Supple. No JVD, adenopathy, or bruits. HEART: Regular rate and rhythm with 2/6 systolic ejection murmur. LUNGS: With decreased breath sounds. No wheeze, rales, or rhonchi. ABDOMEN: Soft. EXTREMITIES: With trace edema bilaterally. LABORATORY DATA: Sodium 144, potassium 3.3, chloride 104, CO2 of 29, BUN and creatinine 15 and 0.7 with a GFR of 80, calcium 9.4, and magnesium 2.3. Liver enzymes are normal. Troponin I, #1 less than 0.01, #2 of 0.720. BNP was elevated at 419. Her baseline had been in the 160s. PT and PTT are normal. White blood cell count 10.2, hemoglobin and hematocrit 11.4 and 37.9, and platelets of 289. IMAGING DATA: Chest x-ray is pending. EKG initially did reveal AFib with rapid ventricular response of the rate of 150s. Followup EKG revealed sinus bradycardia with a rate of 57. No acute ST-T changes. ASSESSMENT AND PLAN: This is an 83-year-old female patient with a history of paroxysmal atrial fibrillation, now with atrial fibrillation in rapid ventricular response. 1. Atrial fibrillation. She is reconverted back to normal sinus. We will consult Cardiology and Electrophysiology. For further plan, may need repeat ablation. 2. Possible acute coronary syndrome. We will continue to rule out protocol. Cardiology for evaluation to see if she needs further risk stratification including cardiac catheterization. We will continue aspirin. 3. Hypertension. I will continue oral medications and monitor closely. Job ID: [id number] [facility]
--- NOTE | 2018-05-11 10:34 | RAD ---
FFRONTAL VIEW CHEST: COMPARISON: 04/28/2018 INDICATION: Chest pain, with history of pleural effusion FINDINGS: Mild pleural-based density inferiorly at the left chest remains, decreased from prior exam. There is diffuse interstitial prominence. There is vascular congestion and enlargement of the cardiac silhouet te. Vascular calcification is present. IMPRESSION: 1. Decreased volume of left pleural fluid. 2. Findings most consistent with edema related to decompensated congestive heart failure. 3. Recommend imaging follow-up. Transcribed Date/Time: 05/11/2018 10:42 AM
[2018-05-11 10:39] LABS: Troponin I 2.195 ng/mL (< 0.028)
[2018-05-11] MEDS ORDERED: Communication Order-Pharmacy FS SCH (11:30)
[2018-05-11] MEDS ORDERED: Dronedarone HCl 400 MG TAB PO SCH (11:30)
--- NOTE | 2018-05-11 12:27 | CON ---
DATE OF CONSULTATION: 05/11/2018 INDICATION FOR CONSULTATION: An 83-year-old female with chest pain and intermittent atrial fibrillation. HISTORY OF PRESENT ILLNESS: This is a very pleasant 83-year-old female, who was recently in the hospital back in April of 2018. I saw her on April 27. She had left pleural effusion, had atrial fibrillation with rapid ventricular response, was treated and was released in the hospital. She has lower extremity edema, which was felt to be due to diltiazem. The diltiazem was discontinued and edema did resolve, and she has had no recurrence of the lower extremity edema. She has undergone atrial fibrillation in the past and about 4 years ago, was doing quite well with that, but had been on the diltiazem. Since she remained in sinus rhythm, we stopped this and put her on beta mario and she had remained relatively stable until last night, she woke up from sleep with chest pain which she describes as being pressure and diaphoresis. She presented to the emergency room and was found again to be in atrial fibrillation with rapid ventricular response, and EKG changes were indicative of more lateral ischemia. She was then given IV diltiazem and converted back to sinus rhythm. Cardiac enzymes became abnormal. Her troponin I originally was 0.01, it has increased up to 0.7. Her BNP was 419. Her chest x-ray shows mild congestive heart failure markings, otherwise did not see any significant abnormalities. She continues to have what appears to be some type of nodule in the left chest, which has been followed by Pulmonology. At this time, she is comfortable. She denies any further chest pressure or any further atrial fibrillation has been noted. Given her overall situation with the discomfort, diaphoresis and chest pain, EKG changes, abnormal cardiac enzymes and repeat episode of atrial fibrillation, I have advised her to undergo a cardiac catheterization as a definitive to rule out evidence of underlying coronary artery disease as an etiology of her abnormal cardiac enzymes, EKG changes, and possibly even may be causing her to have intermittent atrial fibrillation. I did explain that to her and the family and they are agreeable to proceed with cardiac catheterization later today. I have also explained the procedure, the risks to include bleeding, infection, possible myocardial infarction, CVA, renal insufficiency, allergic contrast reaction, and even the possibility of and they agree to proceed. PAST MEDICAL HISTORY: Significant for left lower lobe removal in 2002 for carcinoid. She also has a history of intermittent atrial fibrillation. She has undergone ablation about 4 years ago. She has had left knee arthroscopic surgery. She has had left hip fracture. She had a mild CVA in 2002. SOCIAL HISTORY: She has no alcohol or tobacco abuse. She has 2 children, alive and well. FAMILY HISTORY: She is adopted. ALLERGIES: NONE. MEDICATIONS: Include: 1. Clonidine. 2. Senokot. 3. Xanax. 4. Tylenol. 5. Aspirin 81 mg a day. 6. Bumex 1 mg b.i.d. 7. Pepcid. 8. Apresoline. 9. Imdur. 10. Lisinopril. 11. She has also been on prednisone 10 mg a day and metoprolol ER 100 mg daily. REVIEW OF SYSTEMS: A 12-point review of systems is unremarkable except what is noted in the history of present illness. She denied any recent HEENT changes or pulmonary complaints except when she exercise or exerts herself or do more physical exertion than normal, she becomes short of breath. She only had chest discomfort as noted in the history of present illness. PHYSICAL EXAMINATION: GENERAL: Reveals a very pleasant, well-developed, well-nourished female. She is in no acute distress at this time. VITAL SIGNS: Her blood pressure is elevated at 173/79, heart rate is 58 to 60 with sinus rhythm. She is afebrile. Respiratory rate 16. HEENT: Reveals head to be normocephalic and atraumatic. Carotid pulses are present. I do not hear any bruits. CHEST: Clear. I do not hear any significant abnormalities. No wheezes, rales, or rhonchi. She has breath sounds at the bases. CARDIOVASCULAR: She has a regular rate and rhythm. Normal S1, S2. There is no significant murmurs, heaves, thrills, bruits or rubs. She has a very soft systolic murmur at the upper sternal border, most likely due to some mild aortic valve sclerosis. ABDOMEN: Obese. Positive bowel sounds are present. No organomegaly or masses noted. EXTREMITIES: Showed no clubbing, cyanosis, or edema. 2+ pulses are present throughout. NEUROLOGIC: She has no gross focal or motor deficits. SKIN: Warm and dry. GI: No nausea, vomiting, or diarrhea. No complaints. No dysuria, polyuria, or hematuria. MUSCULOSKELETAL: She has had some resolution of her lower extremity edema. She does have fatigue. No history of seizures or syncope. DIAGNOSTIC DATA: EKG showed evidence of atrial fibrillation with ST-segment changes compatible with lateral wall ischemia. She also has decreased R-wave progression in V1 through V3. LABORATORY DATA: As noted above. Also include creatinine which is 0.7, potassium was 3.3. WBC was 10.2 with hemoglobin 11.4. IMPRESSION: 1. Atrial fibrillation with rapid ventricular response, which converted back to sinus rhythm with diltiazem. We will try to start her on Multaq to see whether or not this will control her atrial fibrillation. She has not done well with diltiazem in the past due to lower extremity edema. 2. History of chest pain and EKG changes with abnormal cardiac enzymes. I have advised her to undergo cardiac catheterization. We will plan that for later today. 3. History of hypertension. We will need to add medications. We will start her on Norvasc to see whether or not she tolerates this without becoming edematous. Otherwise, we may need to alter her medications. She is already on hydralazine, lisinopril 40 mg twice a day. She is also on clonidine 0.1 mg t.i.d. p.r.n. We may need to initiate this medications 3 times a day without p.r.n. basis. Further recommendations will follow after the cardiac catheterization later today. Job ID: [id number]
[2018-05-11] MEDS ORDERED: Verapamil 5 MG/2 ML VIAL ONE (12:35)
[2018-05-11] MEDS ORDERED: Heparin 10,000 UNITS/1 ML VIAL ONE (12:35)
[2018-05-11] MEDS ORDERED: Nitroglycerin 100MG/250ML BOT 250 ML ONE (12:35)
[2018-05-11] MEDS ORDERED: Midazolam HCl 2 mg/2 ml Vial ONE (12:43)
[2018-05-11] MEDS ORDERED: Acetaminophen/Codeine 30-300mg Tablet PO PRN ×2 (13:33)
[2018-05-11] MEDS ORDERED: Sodium Chloride 0.9% 200 ML IV PRN (13:33)
[2018-05-11] MEDS ORDERED: Nitroglycerin 0.4 MG TAB (25 Tab Bottle) SL PRN (13:33)
[2018-05-11 15:13] LABS: Critical Call Chem Troponin I RESULT DECREASING
[2018-05-11 15:33] LABS: CKMB 17.8 ng/mL (0-6.6)
[2018-05-11] MEDS: Bumetanide 1 MG TAB PO SCH (16:56)
[2018-05-11] MEDS: Dronedarone HCl 400 MG TAB PO SCH (16:56)
--- NOTE | 2018-05-11 18:35 | CON ---
DATE OF CONSULTATION: 05/11/2018 PRIMARY CARE PHYSICIAN: Dr. Mooney. CHIEF COMPLAINT: Chest pain and shortness of breath. HISTORY OF PRESENT ILLNESS: The patient is an 83-year-old woman who has had multiple presentations to the hospital since the first of the year, one of which was due to a broken hip when she fell backwards, but the others have mostly been related to issues of chest pain, shortness of breath, swelling, and recurrence of atrial fibrillation. Early this morning, she awoke with chest pressure and diaphoresis and was short of breath. When she arrived in the emergency room, she was in atrial fibrillation with a heart rate in the 150s and a blood pressure of 120/81. Her heart rate was brought under control with IV Cardizem, and she converted to sinus rhythm. Her EKG was associated with lateral ST depressions, and although her initial troponin was normal, subsequent troponins ruben consistent with a myocardial infarction. She is currently pain free, although she is still a little short of breath. Her recent baseline has been notable for getting short of breath just simply walking around her house, but she has not been having issues with pain such as this. 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 She has had episodes of atrial fibrillation, underwent an ablation 4 years ago. She reports having had a "mild stroke" in 2002. She describes having had a vodka tonic, but feeling inordinately ataxic with that lasted for about 24 hours and resolved without any residual. She does not recall any focal deficits at that time. She has hypertension and recently broke her left hip. HOME MEDICATIONS: 1. Diltiazem 120 mg a day. 2. Hydralazine 25 mg t.i.d. 3. Toprol-XL 100 mg at bedtime. 4. Lisinopril 40 mg b.i.d. 5. Bumex 1 mg b.i.d. 6. Baby aspirin a day. 7. Xanax 0.25 mg at bedtime as needed. 8. Senokot 2 tablets a day. Her lisinopril and Toprol and Bumex have been left unchanged. Imdur 30 mg at 6 p.m. has been added, and her hydralazine has been increased to 75 mg t.i.d. Her diltiazem has been stopped. Multaq 400 mg b.i.d. has been started. ALLERGIES: SHE DENIES ANY MEDICAL ALLERGIES. SOCIAL HISTORY: She has never smoked. The patient is adopted and is not aware of any health issues of her biologic parents. REVIEW OF SYSTEMS: Negative for any eye, speech, facial, or extremity symptoms consistent with TIAs. It is positive for some orthopnea and lower extremity edema. The lower extremity edema improved after having previously stopped her diltiazem, it is worse in the left side where she had a broken hip. It is positive for the recent dyspnea on mild exertion. PHYSICAL EXAMINATION: GENERAL: She is an elderly woman, in no distress. VITAL SIGNS: She is 5 feet tall, weighs 145 pounds. Currently, heart rate is sinus rhythm in the 60s. Blood pressure 140 to 165 over 65 to 70. Room air O2 saturations ranged from 89% to 94%. HEENT: She has no xanthelasma. NECK: She has a soft right carotid bruit. CHEST: Clear to auscultation. HEART: She has a regular rate and rhythm. ABDOMEN: Soft and nontender. EXTREMITIES: She has easily palpable left radial and bilateral dorsalis pedis pulses. She has a compression bandage on her right wrist from a right radial approach for catheterization. She has 1 to 2+ pitting edema in the left pretibial region. She has resolving edema in both feet as evidenced by wrinkling of the skin. DIAGNOSTIC DATA: Her chest x-ray shows moderate cardiomegaly and edema with extensive aortic knob calcifications. A CT scan that she had about 2 to 3 weeks ago shows extensive calcification in the arch great vessels and proximal descending aorta and calcifications in the proximal coronaries. There may be a few blips of calcification in the ascending aorta at about the level of the pulmonary artery bifurcation. Her EKG showed an upright T and mild ST elevation in V1, but otherwise precordial ST depression. She had some slight elevation of the ST-segment in lead 3. LABORATORY DATA: Showed a white count of 10.2, hemoglobin 11.4, hematocrit 37.9, platelets 289,000. PT was 13.0, INR was 1.0, PTT 28.8. Potassium is 3.3, otherwise electrolytes were normal. Glucose 128, BUN 15, creatinine 0.70, calcium 9.4. Protein 6.2, albumin 3.8, bilirubin 1.0, alkaline phosphatase 79, AST 18, ALT 25. Her troponin at about 10 minutes to 4 this morning was undetectable, but at 6:30, it was 0.720 and at 10 o'clock it was 2.195. Her troponin on presentation was her cardiac catheterization shows right dominant system with diffuse irregularity in the right coronary system with multiple 60% to 70% lesions extending out to the origin of the PDA. She has a 50% to 60% LAD lesion between the first septal freight clerk and diagonal and then a long complex lesion in the LAD beyond that with maximum stenosis on the order of 80% to 90%. She has a fairly large circumflex system with a rather small very high OM1 and scattered 60% lesions in the circumflex between that and the origin of the terminal 2 OMs, both of which have 60% to 70% lesions in them. The OM2 appears fairly large. The OM3 is more modest in size. LVEF is around 60% with aortic pressure on pullback of 146/62 with a mean of 99 and an LV pressure 141/19 with an EDP of 19. IMPRESSION AND RECOMMENDATIONS: It may very well be that her dyspnea on exertion and recurrent problems with atrial fibrillation and failure symptoms and signs relate to her coronary disease. She already has a fairly slow heart rate. It is going to be hard to drop that down much more. Her hypertension has been rather challenging while it has not been terribly high, it has required multiple medications and still remains modestly elevated. It may not be realistic to think that medical management is going to suffice long-term or for that matter even in the short term to allow her to get in better shape to undergo bypass surgery. I have discussed this with her, her caregiver, her daughter, and with Dr. Rodriguez. We will tentatively plan on coronary bypass surgery the day after tomorrow as her schedule allows, also give consideration to left atrial appendage ligation given her propensity for atrial fibrillation in spite of a previous ablation and her previous bleeding issues while on anticoagulation. Job ID: [id number]
[2018-05-11] MEDS: Nitroglycerin 2% Ointment 1 INCH/1 GM Packet TOP SCH (20:22)
[2018-05-12 07:04] LABS: Anion Gap 10 mmol/L (10-20); BUN (Urea Nitrogen) 13 mg/dL (9.8-20.1); Calc. Creatinine Clearance 69 mL/min (70-130); Calcium 8.9 mg/dL (7.8-10.44); Carbon Dioxide 29 mmol/L (23-31); Chloride 105 mmol/L (98-107); Estimated GFR-MDRD 87; Glucose 102 mg/dL (83-110); Potassium 3.6 mmol/L (3.5-5.1); Sodium 140 mmol/L (136-145)
[2018-05-12] MEDS ORDERED: Communication Order-Pharmacy FS SCH (07:09)
[2018-05-12] MEDS: Famotidine 20 MG TAB PO SCH ×2 (08:50→21:42)
[2018-05-12] MEDS: Senokot S 8.6-50 MG TAB PO SCH ×2 (08:50→21:37)
[2018-05-12] MEDS: Bumetanide 1 MG TAB PO SCH ×3 (08:51→17:55)
[2018-05-12] MEDS: Aspirin 81 mg Enteric Coated Tablet PO SCH (08:51)
[2018-05-12] MEDS: Dronedarone HCl 400 MG TAB PO SCH ×2 (08:51→17:50)
[2018-05-12] MEDS: hydrALAZINE 25 MG TAB PO SCH ×3 (08:51→21:43)
[2018-05-12] MEDS: Lisinopril 20 MG TAB PO SCH ×2 (08:51→21:37)
[2018-05-12] MEDS: Nitroglycerin 2% Ointment 1 INCH/1 GM Packet TOP SCH ×2 (08:52→21:38)
--- NOTE | 2018-05-12 08:52 | PRG ---
DATE OF SERVICE: 05/12/2018 SUBJECTIVE: The patient is feeling much better today. She denies chest pain. Maryjo states that her breathing is improved. Yesterday, she says that she felt poorly after the heart catheterization, but seems like she has recovered well. She is anxious about talking about the coronary artery bypass procedure. She was asking Dr. Constantino a lot of questions. OBJECTIVE: VITAL SIGNS: Temperature 97.9, pulse is 60 and regular, respirations 20, blood pressure 146/66, and pulse ox 98% on room air. GENERAL: She is awake and alert, in no acute distress. Speech is clear. NECK: Supple. HEART: Regular rate and rhythm with occasional ectopy. LUNGS: With rhonchi, scattered. No rales at the bases. ABDOMEN: Soft. EXTREMITIES: With minimal edema. LABORATORY DATA: Sodium 140, potassium 3.6, chloride 105, CO2 of 29, BUN and creatinine are 13 and 0.65. GFR of 87. Serum glucose of 102 and calcium 8.9. Cardiac catheterization as described by Dr. Rodriguez with 90% stenosis at the mid LAD, 40% stenosis of distal LAD, 90% stenosis at distal circumflex, 75% stenosis of proximal RCA. ASSESSMENT AND PLAN: This is an 83-year-old female patient admitted for atrial fibrillation with rapid ventricular response, now found to have multiple vessel coronary artery disease. 1. Atrial fibrillation. She has converted back to normal sinus rhythm, seems to be rate controlled on her current treatment with Multaq and metoprolol. 2. Multiple vessel coronary artery disease. Appreciate Dr. Rodriguez and Dr. Constantino. The patient is deciding on whether to proceed with five-vessel bypass as recommended by Dr. Constantino. He will also be able to perform a left atrial appendage to hopefully prevent future atrial fibrillation. 3. Congestive heart failure, appears to be stable, on bumetanide. 4. Anxiety, some improvement with beta-mario. I will continue Xasaige p.r.n. Job ID: [id number]
--- NOTE | 2018-05-12 09:18 | PDOC.CTH ---
Cardiology Progress Note - Subjective The pt seen and examined. No overnight events. No cardiac complaints. - Objective Vital Signs Temp Pulse Resp BP BP BP Pulse Ox 05/12/18 08:51 60 162/70 H 05/12/18 07:10 97.9 F 60 20 184/72 H 98 05/12/18 04:03 98.1 F 61 20 146/66 H 97 05/11/18 22:46 97.5 F L 60 24 H 126/60 91 L Weight 146 lb 12.8 oz 05/11/18 05/12/18 05/13/18 06:59 06:59 06:59 Intake Total 240 Output Total 200 Balance 40 - Physical Examination General/Neuro: alert & oriented x3 Neck: no JVD present Lungs: CTA Heart: RRR Abdomen: soft Extremities: other: (No edema) - Telemetry Telemetry Rhythm: SR - Labs Result Diagrams: 05/11/18 03:51 05/12/18 06:31 Troponin/CKMB CK-MB (CK-2) 17.8 ng/mL (0-6.6) H* 05/11/18 14:26 Troponin I 2.088 ng/mL (< 0.028) H* 05/11/18 14:26 - Assessment/Plan 1. 3V CAD with s/p LHC on 05/11/2018 - Plan for 5 CABG with MAXIMUS ligation tomorrow; All questions and concerns about CABG and post-op CABG tx plan. 2. HTN - Cont. current medication with Clonidin PRN for SBP > 160 3. Afib - remains in SR with Multaq and ASA 4. Chronic Diastolic HF - decrease Bumex 1mg from BID to qd; On BBlocker, HARVEY. 5. Hx of CVA 6. Anxiety - On Xanax PRN 7. Hx of lobectomy MAR reviewed Review of Systems - Review of Systems Constitutional: reports: no symptoms reported EENTM: reports: no symptoms reported Respiratory: reports: no symptoms reported Cardiac (ROS): reports: no symptoms reported ABD/GI: reports: no symptoms reported : reports: no symptoms reported Musculoskeletal: reports: no symptoms reported
--- NOTE | 2018-05-12 09:35 | PDOC.CTH ---
Cardiology Progress Note - Subjective EP PROGRESS NOTE: 05/12/18 Seen as fup for AF. Plan for CABG tomorrow. Anxious about tomorrows surgery but otherwise feeling well. SOB and weak after [facility] yesterday but states that has largely resolved. No heart racing, palpitations, chest pain, dizziness, or passing out. - Objective Vital Signs Temp Pulse Resp BP BP BP Pulse Ox 05/12/18 08:51 60 162/70 H 05/12/18 07:10 97.9 F 60 20 184/72 H 98 05/12/18 04:03 98.1 F 61 20 146/66 H 97 05/11/18 22:46 97.5 F L 60 24 H 126/60 91 L Weight 146 lb 12.8 oz 05/11/18 05/12/18 05/13/18 06:59 06:59 06:59 Intake Total 240 Output Total 200 Balance 40 - Physical Examination General/Neuro: alert & oriented x3, NAD Neck: carotid US brisk, no JVD present Lungs: CTA, unlabored respirations Heart: PMI normal, RRR Abdomen: NT/ND, soft - Telemetry Telemetry Rhythm: SR - Labs Result Diagrams: 05/11/18 03:51 05/12/18 06:31 Troponin/CKMB CK-MB (CK-2) 17.8 ng/mL (0-6.6) H* 05/11/18 14:26 Troponin I 2.088 ng/mL (< 0.028) H* 05/11/18 14:26 - Assessment/Plan 1. CAD -s/p [facility] on 05/11/2018 -Plan for CABG with MAXIMUS ligation tomorrow. 2. HTN -Per cardiology 3. Paroxysmal atrial firillationb - remains in SR with Multaq and ASA - may require amiodarone instead of multaq during perioperative time if multaq isn't strong enough to hold NSR 4. Chronic Diastolic HF - per cardiology 5. Anxiety 6. CHADS2-VASC >/= 8 ( age-2, gender-1, HTN-1, vascular disease-1, prior CVA-2, HF-1) -OAC is indicated. Will address extermination supervisor need after CABG and will need surgical clearance to begin OAC eventually. Continue multaq for now, but will likely need amiodarone after CABG. Will continue to follow. Strongly agree with MAXIMUS ligation. Also, please consider surgical MAZE if feasible.
[2018-05-12] MEDS: ALPRAZolam 0.25 MG TAB PO PRN ×2 (09:57→10:25)
[2018-05-12] MEDS ORDERED: Ondansetron PF 4 MG/2 ML Vial IVP PRN (10:35)
[2018-05-12] MEDS ORDERED: Ondansetron ODT 4 MG TAB PO PRN (10:35)
--- NOTE | 2018-05-12 14:47 | CON ---
DATE OF CONSULTATION: 05/11/2018 REASON FOR CONSULTATION: Atrial fibrillation. HISTORY OF PRESENT ILLNESS: Ms. Mendes is a very pleasant 83-year-old woman, who presented to [facility] and was found to be in atrial fibrillation. She awoken in the middle of the night with chest pain, pressure, and associated diaphoresis. In the emergency room, she was found to be in atrial fibrillation with RVR with EKG changes suggesting lateral ischemia. IV diltiazem was administered restoring sinus rhythm. Her cardiac enzymes were elevated and she was eventually taken to the pharmacy laboratory technician, which revealed extensive triple-vessel coronary artery disease. She is currently scheduled to undergo bypass in a few days. For atrial fibrillation, oral Multaq had been initiated. EP consultation is desired for management of her atrial fibrillation. She was initially diagnosed with atrial fibrillation years ago, which has been well controlled to the best of her knowledge with AV yuriy blocking agents alone. When she was in the emergency room earlier this year, she was in atrial fibrillation with RVR and was found to have left pleural effusion as well. This was medically managed and she was discharged in stable condition. REVIEW OF SYSTEMS: Currently, Ms. Mendes is feeling well. She denies any heart racing, palpitations, ongoing chest pain, pressure, syncope, near syncope, stroke, or stroke-like symptoms. A 12-point review of systems was conducted and is negative unless listed above in the HPI. PAST MEDICAL HISTORY: 1. Left lower lobe removal in 2002 for carcinoid. 2. Paroxysmal atrial fibrillation, possible ablation approximately 4 years ago. 3. Left knee arthroscopic surgery. 4. Left hip fracture. 5. Cerebrovascular accident in 2002 versus TIA. SOCIAL HISTORY: Negative for tobacco, alcohol, or illicit drug use. Has two living children. FAMILY HISTORY: Unobtainable as she was adopted. ALLERGIES: NONE. HOME MEDICATIONS: Include, 1. Clonidine. 2. Senokot. 3. Xanax. 4. Tylenol. 5. Aspirin 81 mg daily. 6. Bumex 1 mg b.i.d. 7. Pepcid. 8. Apresoline. 9. Imdur. 10. Lisinopril. 11. Metoprolol 100 mg daily. 12. Prednisone 10 mg daily. OBJECTIVE: MOST RECENT VITAL SIGNS: Temperature 97.9, pulse 67, blood pressure 165/72, respirations 18, and oxygen is 94% on room air. GENERAL: Ms. Mendes is alert and oriented. Speech is clear. Affect is appropriate. She is in no apparent distress. HEENT: She is normocephalic and atraumatic. Sclerae anicteric. EOMs are intact. Oral mucosa is moist and pink with adequate dentition. NECK: Supple without jugular venous distention. HEART: Rate and rhythm are regular with a crisp S1 and S2. PMI is nondisplaced. LUNGS: Clear to auscultation bilaterally. Absent in the left lower lobe, status post resection. ABDOMEN: Soft and nontender without palpable masses. EXTREMITIES: Warm and dry to touch without clubbing, cyanosis, or edema. NEUROLOGIC: Grossly intact and nonfocal. Gait is not assessed. IMAGING DATABASE: EKG and telemetry were all personally reviewed and initially reflect atrial fibrillation, but currently maintaining sinus rhythm. LABORATORY DATA: Hematology was reviewed. WBC 10.2, hemoglobin 11.4, platelet count 289. Chemistry unremarkable. Creatinine 0.65. Troponins peaked at 2.195. BNP 419. Magnesium 2.3. IMPRESSION: 1. Paroxysmal recurrent atrial fibrillation with rapid ventricular response. Currently in sinus rhythm, on Multaq. 2. Coronary artery disease. Left heart catheterization today revealed 3-vessel coronary artery disease with bypass planned on 05/13 by Cardiothoracic Surgery. 3. History of preserved left ventricular ejection fraction with some diastolic dysfunction and heart failure. 4. History of cerebrovascular accident in 2002. 5. Left lower lobe resection status post carcinoid tumor. 6. CHADS-VASc score of 7 (on the basis of advanced age, female gender, hypertension, vascular disease, heart failure, and prior stroke). 7. Oral anticoagulation is indicated and will be a long-term requirement, although we will address this later after her bypass surgery once she is cleared by Surgery for initiating . PLAN AND RECOMMENDATIONS: Agree with current medical management with Multaq, but ultimately consider transition to amiodarone if recurrent or persisting arrhythmia issues are seen surrounding her coronary artery bypass grafting surgery coming up. Also, recommend considering left atrial appendage ligation at the time of surgery if feasible, and in addition, to Maze if feasible. We will continue to follow her surrounding her upcoming bypass surgery and help managing with the issues as they arise. Thank you for allowing us to participate in the care of this patient. Job ID: [id number] IRAM
[2018-05-13] MEDS: Lisinopril 20 MG TAB PO SCH (05:54)
[2018-05-13] MEDS ORDERED: Fentanyl 250 MCG/5 ML VIAL ONE (06:22)
[2018-05-13] MEDS ORDERED: Norepinephrine 8 MG/0.9% NS 250 ML ONE (06:22)
[2018-05-13] MEDS ORDERED: Bupivacaine HCl 0.5%/Epinephrine 1:200,000/PF 30 ml Vial ONE (06:28)
[2018-05-13] MEDS ORDERED: Dexamethasone 4 mg/ml Vial ONE (06:28)
[2018-05-13] MEDS ORDERED: Heparin 10,000 UNITS/1 ML VIAL 30,000 UNITS in Sodium Chloride 0.9% 1,000 ML FS SCH (06:30)
[2018-05-13] MEDS ORDERED: Albumin 5% 500 ML ONE (08:42)
[2018-05-13] MEDS ORDERED: Bumetanide 1 MG TAB PO SCH (09:00)
[2018-05-13] MEDS ORDERED: Nitroglycerin 50 MG/250 ML BOT 250 ML IVPB PRN (12:13)
[2018-05-13] MEDS ORDERED: Post-Op Insulin Drip Protocol IVPB ONE (12:13)
[2018-05-13] MEDS ORDERED: Fentanyl 100 MCG/2 ML VIAL SLOW IVP PRN ×2 (12:13)
[2018-05-13] MEDS ORDERED: HYDROcodone/Acetaminophen 5/325 mg Tablet PO PRN (12:13)
[2018-05-13] MEDS ORDERED: Hetastarch 6% 500 ML 500 ML IVPB PRN (12:13)
[2018-05-13] MEDS ORDERED: Mag-Al 1200 mg/1200 mg/30 ML UDCUP PO PRN (12:13)
[2018-05-13] MEDS ORDERED: niCARdipine HCl 25 MG in Sodium Chloride 0.9% 250 ML 240 ML IVPB PRN (12:13)
[2018-05-13] MEDS ORDERED: Morphine 4 MG/ML VIAL SLOW IVP PRN (12:13)
[2018-05-13] MEDS ORDERED: Potassium Chloride 20 MEQ/100 ML PREMIX BAG IVPB PRN (12:13)
[2018-05-13] MEDS ORDERED: Norepinephrine 8 MG/0.9% NS 250 ML IVPB PRN (12:13)
[2018-05-13] MEDS ORDERED: Guaifenesin DM 100-10/5 ML UDCUP PO PRN (12:13)
[2018-05-13] MEDS ORDERED: Bisacodyl 5 MG TAB PO PRN (12:13)
[2018-05-13] MEDS ORDERED: Bisacodyl 10 MG SUPP PR PRN (12:13)
[2018-05-13] MEDS ORDERED: Promethazine HCl 25 MG/ML VIAL IM PRN (12:13)
[2018-05-13] MEDS ORDERED: Acetaminophen 325 MG TAB PO PRN (12:13)
[2018-05-13] MEDS ORDERED: hydrALAZINE 20 MG/ML VIAL SLOW IVP PRN (12:13)
[2018-05-13] MEDS ORDERED: Nitroglycerin 50 MG/250 ML BOT ONE (12:22)
[2018-05-13] MEDS ORDERED: Potassium Chloride 60 MEQ/30 ML VIAL ONE (12:22)
[2018-05-13] MEDS ORDERED: Mannitol 12.5 GM/50 ML ONE (12:22)
[2018-05-13] MEDS ORDERED: Heparin 5,000 UNITS/ML VIAL ONE (12:22)
[2018-05-13] MEDS ORDERED: Cardioplegic Soln 1,000 ML BAG ONE (12:22)
[2018-05-13] MEDS ORDERED: Magnesium 5 GM/10 ML VIAL ONE (12:22)
[2018-05-13] MEDS ORDERED: Heparin 30,000 units/30 ml VIAL ONE (12:22)
[2018-05-13] MEDS ORDERED: Lidocaine 2% PF 100 mg/5 ml Syringe ONE (12:22)
[2018-05-13] MEDS ORDERED: Protamine Sulfate 250 MG/25 ML VIAL ONE (12:22)
[2018-05-13] MEDS ORDERED: Aminocaproic Acid 5 GM/20 ML VIAL ONE (12:22)
[2018-05-13] MEDS ORDERED: Papaverine 60 MG/2 ML VIAL ONE (12:22)
[2018-05-13] MEDS ORDERED: Thrombin 5000 UNITS/5 ML VIAL ONE (12:22)
[2018-05-13] MEDS ORDERED: Sodium Bicarb 50 MEQ/50 ML VIAL ONE (12:22)
[2018-05-13] MEDS ORDERED: Calcium Chloride 1 GM/10 ML Abboject SYRINGE ONE (12:22)
[2018-05-13] MEDS: Dronedarone HCl 400 MG TAB PO SCH ×2 (12:23→18:29)
[2018-05-13] MEDS: Senokot S 8.6-50 MG TAB PO SCH ×2 (12:23→20:33)
[2018-05-13] MEDS ORDERED: Aspirin Chewable 81 MG TAB PO SCH (12:30)
[2018-05-13] MEDS ORDERED: Dextrose 5% in Water 1,000 ML IV PRN (12:32)
[2018-05-13] MEDS ORDERED: Dextrose 50% Abboject 50 ML SYRINGE SLOW IVP PRN (12:32)
[2018-05-13] MEDS ORDERED: HUMULIN R 100 UNITS in Sodium Chloride 0.9% 100 ML IVPB SCH (12:32)
[2018-05-13] MEDS ORDERED: Famotidine/PF 20 mg/2ml Vial SLOW IVP SCH ×2 (12:45→21:00)
[2018-05-13] MEDS ORDERED: Vecuronium 10 MG VIAL ONE ×2 (12:52→13:55)
[2018-05-13 13:47] LABS: #Basophils 0.1 thou/uL (0.0-0.2); #Eosinphils 0.3 thou/uL (0.0-0.7); #Lymphocytes 2.8 thou/uL (1.20-3.40); #Monocytes 1.1 thou/uL (0.11-0.59); %Basophils 0.5 % (0.0-1.0); %Eosinophils 1.7 % (0.0-10.0); %Lymphocytes 18.2 % (21.0-51.0); %Monocytes 7.3 % (0.0-10.0); %Neutrophils 72.3 % (42.0-75.0); Hemoglobin 8.5 g/dL (12.0-16.0); Mean Corpuscular HGB CONC 31.3 g/dL (32.0-36.0); Mean Corpuscular Hemoglobin 22.2 pg (27.0-31.0); Mean Platelet Volume 8.7 fL (7.4-10.4); Platelet Count 137 thou/uL (130-400); RBC Distribution Width 18.6 % (11.5-14.5); Red Blood Cell (RBC) Count 3.83 mill/uL (4.20-5.40); White Blood Cell (WBC) Count 15.2 thou/uL (4.8-10.8)
--- NOTE | 2018-05-13 13:49 | RAD ---
FEXAM: XR Chest 1 View Portable DATE: 05/13/2018 12:13 PM ORDERING PHYSICIAN: Modesto Constantino MD INDICATION: . Open heart FINDING: Since the comparison examination dated 05/29/2018, the patient has been intubated. The patie nt has undergone interval CABG . There is a right IJ central venous catheter has been placed. There i s been placement of a left-sided thoracostomy tube and midline mediastinal drain. There is stable mod erate cardiomegaly. No consolidation, pleural effusion or pneumothorax is demonstrated. No acute osse ous abnormality is evident. IMPRESSION:Postoperative chest. Stable cardiomegaly. ET tube, right subclavian central venous cathete r, left sided thoracostomy tube and midline mediastinal drain.
[2018-05-13 13:55] LABS: Actual Bicarbonate (HCO3a) 21.7 mEq/L (22-28); Base Excess (BEa) -1.2 mEq/L (-2.0 to +3.0); CO2 Tension 29.7 mmHg (35.0-45.0); Calcium, Ionized 1.12 mmol/L (1.12-1.30); Carboxyhemoglobin (COHb) 1.4 gm% (0.0-3.0); O2 Tension (PaO2) 180.6 mmHg (> 60.0); pH, Arterial 7.48 (7.35-7.45)
[2018-05-13] MEDS ORDERED: Succinylcholine Chloride 20 MG/ML 10 ml SYRINGE FS ONE (13:55)
[2018-05-13] MEDS ORDERED: PROPOFOL 200 MG/20 ML VIAL ONE (13:55)
[2018-05-13] MEDS ORDERED: ePHEDrine 50 MG/ML VIAL ONE (13:55)
[2018-05-13] MEDS ORDERED: Rocuronium Bromide 10 MG/ML (10ML VIAL) ONE (13:55)
[2018-05-13 13:56] LABS: Puncture Site ALINE
[2018-05-13 13:56] LABS: INR-International Normal Ratio 1.5; PTT 33.9 SEC (22.9-36.1); Prothrombin Time 17.8 SEC (12.0-14.7)
[2018-05-13 13:57] LABS: ALV-art Gradient 67.475 (0-20)
[2018-05-13] MEDS: Insulin Regular 300 UNITS/3 ML VIAL SC PRN ×2 (13:57→15:51)
[2018-05-13 14:09] LABS: Anion Gap 9 mmol/L (10-20); BUN (Urea Nitrogen) 17 mg/dL (9.8-20.1); Calc. Creatinine Clearance 67 mL/min (70-130); Calcium 7.7 mg/dL (7.8-10.44); Carbon Dioxide 24 mmol/L (23-31); Chloride 110 mmol/L (98-107); Estimated GFR-MDRD 84; Glucose 125 mg/dL (83-110); Potassium 3.9 mmol/L (3.5-5.1); Sodium 139 mmol/L (136-145)
[2018-05-13] MEDS: Sodium Chloride 0.9% 1,000 ML IV SCH (14:13)
[2018-05-13] MEDS: Ketorolac Tromethamine 30 MG/ML VIAL IVP SCH ×3 (14:13→23:07)
--- NOTE | 2018-05-13 14:14 | PDOC.CTH ---
Cardiology Progress Note - Subjective pt. back from the OR after 5 vessel CABG. Holcomb->LAD, SVG-> Diag1, SVG-> OM1-OM2 , SVG-> PDA. She is still sedated but in NSR and BP stable. - ROS not able to obtain ROS - Objective Vital Signs Temp Pulse Resp BP BP Pulse Ox 05/13/18 13:29 80 187/89 H 05/13/18 05:54 128/60 05/13/18 04:00 99.1 F 58 L 17 141/61 H 96 Weight 146 lb 12.8 oz 05/12/18 05/13/18 05/14/18 06:59 06:59 06:59 Intake Total 240 Output Total 200 Balance 40 - Physical Examination General/Neuro: other: (sedated on the ventilator.) Neck: no JVD present Lungs: CTA, other: (chest tubes intact.) Heart: RRR Abdomen: no HSM, soft - Telemetry Telemetry Rhythm: NSR. - Labs Result Diagrams: 05/13/18 13:25 05/13/18 13:25 Troponin/CKMB CK-MB (CK-2) 17.8 ng/mL (0-6.6) H* 05/11/18 14:26 Troponin I 2.088 ng/mL (< 0.028) H* 05/11/18 14:26 - Assessment/Plan 1. CAD. s/p NSTEMI. s/p CABG x 5. 2. Atrial fibrillation : maintaining NSR. 3. Diastolic dysfunction. stable. I agree with the present meds./ management.
[2018-05-13] MEDS ORDERED: Calcium Gluconate 4.6 MEQ in Sodium Chloride 0.9% 100 ML IVPB SCH (14:30)
--- NOTE | 2018-05-13 14:33 | OP ---
DATE OF PROCEDURE: 05/13/2018 PROCEDURE PERFORMED: Coronary artery bypass grafting x5 with left internal mammary artery to the LAD, sequential reverse saphenous, greater saphenous vein graft from aorta to the second obtuse marginal to the third obtuse marginal, separate reverse greater saphenous vein graft from aorta to the first diagonal into the PDA, ligation of left atrial appendage. PREOPERATIVE DIAGNOSIS: Coronary artery disease, status post ST-elevation myocardial infarction and history of atrial fibrillation. POSTOPERATIVE DIAGNOSIS: Coronary artery disease, status post ST-elevation myocardial infarction and history of atrial fibrillation. PECAN GROWER: Terrell. ANESTHESIA: General endotracheal anesthesia. INDICATIONS: The patient is an 83-year-old woman with a past history of having undergone a catheter based ablation for atrial fibrillation, who over the last few months has had recurrences of her atrial fibrillation and the development of some dyspnea on exertion. She recently awoke with chest pressure and diaphoresis and at presentation, she was found to be in rapid atrial fibrillation with ST changes. She converted on Cardizem but ruled in for myocardial infarction and cardiac catheterization demonstrated severe 3-vessel coronary artery disease. She is now taken to the operating room for revascularization. FINDINGS: Pump time 110 minutes. Cross-clamp time 53 minutes. Plaque at the base of the innominate artery, but the ascending aorta proper was soft and good quality PORTIA and saphenous vein. The LAD was about 2 mm. The diagonal about 1 to 1.5 mm. The OM2 was about 2 mm with scattered plaque, OM3 about 1.5 to 2 mm and the PDA about 1.5 to 2 mm. NARRATIVE REPORT: After informed consent was obtained, the patient was taken to the operating room, placed in supine position on the operating table. After the induction of general anesthesia, the greater saphenous vein in the left lower extremity was ultrasonographically mapped and then the patient's right upper chest was prepped and draped in sterile fashion. With the patient in Trendelenburg, a triple-lumen central line kit was used to attempt a right subclavian central line. Several attempts were made that were unsuccessful and this site was abandoned. She was re-prepped and draped in order to perform an internal jugular cannulation. An ultrasound probe and a sterile sleeve was used to identify the carotid artery and internal jugular vein and with ultrasonographic guidance, the jugular was cannulated and then by the Seldinger technique, a triple-lumen central line placed. All 3 ports easily aspirated and flushed. The line was secured and dressed. The patient's torso, groins, and lower extremities were prepped and draped in sterile fashion. Greater saphenous vein was exposed just above the left knee and using that as the port site, it was endoscopically harvested from groin to distal lower leg. It was prepared for use as a graft. There was a intervening segment that was small and unusable and the segment at the distal lower leg was somewhat small and thin walled. The remainder was of excellent quality. A median sternotomy was performed. The left PORTIA was mobilized as a skeletonized in-situ graft from the level of the xiphoid to the level of the subclavian vein through an extrapleural exposure. Rents in the pleura were repaired with Prolene. The patient was heparinized. The mammary was ligated and divided distally. There was good flow through the mammary which was then instilled intraluminally with papaverine solution. The mammary bed was inspected for hemostasis. The PORTIA retractor was replaced with a Devine retractor. The pericardium was opened and marsupialized. The aorta was palpated. There was plaque palpable in the base of the innominate artery, but the intrapericardial ascending aorta and the base of the arch proper were soft. A double concentric pursestring of 2-0 Ethibond was placed somewhat medially along the lesser curvature of the very proximal arch. A single pursestring was placed in the right atrial appendage. Aortic and venous cannulae were inserted and secured by the pursestrings. Cardiopulmonary bypass was instituted. The patient was systemically cooled. A longitudinal slit was made in the pericardium anterior to the left phrenic nerve through which the mammary could be passed. The heart was examined. The vessel to be bypassed were identified. The heart was somewhat large while there was no overt scarring around the pulmonary veins from a previous catheter ablation. She had a large atrium and has felt that there was relatively little benefit to an epicardial modified maze procedure with a modest amount of added risk to it and that was deferred. An aortic cross-clamp was applied and cardioplegia was administered through an aortic root needle. When arrest had been achieved, attention was turned to the left atrial appendage. It was ligated by running two layers of 3-0 Prolene in horizontal mattress fashion at the base of the appendage. Attention was then turned to the circumflex system, points on the OM2 and OM3 were selected for grafting. The OM3 was opened and the greater saphenous vein was reversed and anastomosed there end-to-side with running Prolene suture orienting the anastomosis perpendicular to the axis of the coronary. The anastomosis was tested by flushing cold cardioplegia down the graft. Attention was then turned to the second obtuse marginal. It was opened and a [id number] anastomosis was constructed from the OM3 graft to the OM2. Again, orienting the anastomosis perpendicular to the axis of the coronary. The attention was then turned to the PDA. It was opened and grafted in end-to-side with the remainder of that segment of saphenous vein. The remaining relatively thin-walled and small segment of saphenous was reserved for the diagonal which was grafted in the side. The LAD was opened and the mammary was anastomosed there with running 7-0 Prolene and tacked to the epicardium. The aortic cross-clamp was placed with a partial occluding clamp and aortotomy was made in the ascending aorta with a scalpel and punch. The PDA graft was brought along the right side of the heart and anastomosed to the most proximal aortotomy. The diagonal and sequential OM grafts were anastomosed to the middle and distal aortotomies respectively. The proximal anastomoses were marked with hemoclips. The partial occluding clamp was removed and the vein grafts were de-aired. The bulldogs were removed from them. The anastomoses were inspected for hemostasis. A posterior pericardial drain was brought out through a separate incision and secured with suture. Air from the previous violation of the left pleura was aspirated and the additional rent in the pleura repaired over a Valsalva maneuver. Right atrial and right ventricular temporary epicardial pacing wires were placed and the patient was easily from cardiopulmonary bypass. Aortic and venous cannulae were removed and the pursestring secured. Protamine was administered. When hemostasis was adequate, an anterior mediastinal drain was placed. It was not feasible to close the pericardium, but the mediastinal fat was tacked back together over the aorta and then inferior medial aspects of the pericardium were reapproximated at the diaphragmatic surface. The cut surfaces of the sternum were treated with vancomycin paste and platelet rich GPS. The sternum was reapproximated with #7 stainless steel wires. The fascia was closed over the wires with heavy Vicryl. Subcutaneous tissue was irrigated and treated with platelet poor GPS and then reapproximated with 2-0 Vicryl. The skin was closed with a 3-0 Vicryl subcuticular suture. The wounds were dressed. The patient was taken to the intensive care unit in stable condition. Job ID: [id number]
[2018-05-13 15:23] LABS: Actual Bicarbonate (HCO3a) 24.1 mEq/L (22-28); Analyzer IN Cardio OR; Base Excess (BEa) 0.5 mEq/L (-2.0 to +3.0); CO2 Tension 33.9 mmHg (35.0-45.0); Calcium, Ionized 1.07 mmol/L (1.12-1.30); Carboxyhemoglobin (COHb) 0.4 gm% (0.0-3.0); Hemoglobin (Hb) 8.4 g/dL (12.0-16.0); Potassium - ABG Lab 3.47 mmol/L (3.70-5.30); pH, Arterial 7.47 (7.35-7.45)
[2018-05-13 15:23] LABS: Actual Bicarbonate (HCO3a) 24.3 mEq/L (22-28); Analyzer IN Cardio OR; Base Excess (BEa) 1.5 mEq/L (-2.0 to +3.0); CO2 Tension 31.5 mmHg (35.0-45.0); Calcium, Ionized 1.09 mmol/L (1.12-1.30); Carboxyhemoglobin (COHb) 1.4 gm% (0.0-3.0); Hemoglobin (Hb) 8.8 g/dL (12.0-16.0); Potassium - ABG Lab 3.64 mmol/L (3.70-5.30); pH, Arterial 7.51 (7.35-7.45)
[2018-05-13 15:24] LABS: Actual Bicarbonate (HCO3a) 24.2 mEq/L (22-28); Analyzer IN Cardio OR; Base Excess (BEa) 0.5 mEq/L (-2.0 to +3.0); CO2 Tension 34.3 mmHg (35.0-45.0); Calcium, Ionized 0.95 mmol/L (1.12-1.30); Carboxyhemoglobin (COHb) 1.7 gm% (0.0-3.0); Hemoglobin (Hb) 5.7 g/dL (12.0-16.0); O2 Tension (PaO2) 473.8 mmHg (> 60.0); Potassium - ABG Lab 4.41 mmol/L (3.70-5.30); pH, Arterial 7.47 (7.35-7.45)
[2018-05-13 15:24] LABS: Actual Bicarbonate (HCO3a) 24.9 mEq/L (22-28); Analyzer IN Cardio OR; Base Excess (BEa) -0.5 mEq/L (-2.0 to +3.0); CO2 Tension 44.6 mmHg (35.0-45.0); Calcium, Ionized 0.99 mmol/L (1.12-1.30); Carboxyhemoglobin (COHb) 0.8 gm% (0.0-3.0); Hemoglobin (Hb) 7.1 g/dL (12.0-16.0); O2 Tension (PaO2) 432.8 mmHg (> 60.0); Potassium - ABG Lab 4.09 mmol/L (3.70-5.30); pH, Arterial 7.36 (7.35-7.45)
[2018-05-13 15:24] LABS: Actual Bicarbonate (HCO3v) 24 mEq/L (22-28); Analyzer IN Cardio OR; Base Excess -0.7 mEq/L (-2.0 to +3.0); Calcium, Ionized 0.95 mmol/L (1.16-1.32); Chloride (ABG LAB) 105 mmol/L (98-106); Hemoglobin (Hb) 5.6 g/dL (11.7-16.1); Sodium 133.1 mmol/L (133-146); pH (venous) 7.42 (7.32-7.43)
[2018-05-13 15:25] LABS: Actual Bicarbonate (HCO3a) 22.9 mEq/L (22-28); Analyzer IN Cardio OR; Base Excess (BEa) -1.9 mEq/L (-2.0 to +3.0); CO2 Tension 38.8 mmHg (35.0-45.0); Calcium, Ionized 1.02 mmol/L (1.12-1.30); Hemoglobin (Hb) 7.1 g/dL (12.0-16.0); O2 Tension (PaO2) 416.2 mmHg (> 60.0); pH, Arterial 7.39 (7.35-7.45)
[2018-05-13 15:25] LABS: Actual Bicarbonate (HCO3a) 22.7 mEq/L (22-28); Analyzer IN Cardio OR; Base Excess (BEa) -0.3 mEq/L (-2.0 to +3.0); Calcium, Ionized 1.11 mmol/L (1.12-1.30); Carboxyhemoglobin (COHb) 1.2 gm% (0.0-3.0); Hemoglobin (Hb) 7.5 g/dL (12.0-16.0)
[2018-05-13 15:25] LABS: Actual Bicarbonate (HCO3a) 24.5 mEq/L (22-28); Analyzer IN Cardio OR; Base Excess (BEa) -0.8 mEq/L (-2.0 to +3.0); CO2 Tension 43.5 mmHg (35.0-45.0); Calcium, Ionized 1.18 mmol/L (1.12-1.30); Carboxyhemoglobin (COHb) 1.5 gm% (0.0-3.0); Hemoglobin (Hb) 7.3 g/dL (12.0-16.0); O2 Tension (PaO2) 419.7 mmHg (> 60.0); Potassium - ABG Lab 4.13 mmol/L (3.70-5.30); pH, Arterial 7.37 (7.35-7.45)
[2018-05-13 15:26] LABS: O2 Tension (PaO2) 581.7 mmHg (> 60.0)
[2018-05-13 15:26] LABS: Puncture Site ALINE
[2018-05-13 15:27] LABS: Puncture Site ALINE
[2018-05-13 15:27] LABS: Puncture Site ALINE
[2018-05-13 15:28] LABS: Puncture Site ALINE
[2018-05-13 15:28] LABS: Puncture Site ALINE
[2018-05-13 15:28] LABS: Puncture Site ALINE
[2018-05-13 15:29] LABS: O2 Tension (PaO2) 565.5 mmHg (> 60.0); Puncture Site ALINE
[2018-05-13] MEDS: Bumetanide 1 MG TAB PO SCH (15:57)
[2018-05-13] MEDS: Famotidine 20 MG TAB PO SCH (15:58)
[2018-05-13] MEDS: Aspirin 81 mg Enteric Coated Tablet PO SCH (15:58)
[2018-05-13] MEDS: hydrALAZINE 25 MG TAB PO SCH (15:58)
[2018-05-13] MEDS: Nitroglycerin 2% Ointment 1 INCH/1 GM Packet TOP SCH (15:59)
[2018-05-13 20:01] LABS: Hemoglobin 10.3 g/dL (12.0-16.0)
[2018-05-13 20:15] LABS: Potassium 4.5 mmol/L (3.5-5.1)
--- NOTE | 2018-05-13 21:23 | CON ---
DATE OF CONSULTATION: 05/13/2018 SERVICE: Pulmonary Medicine. HISTORY OF PRESENT ILLNESS: The patient is an 83-year-old white female with past medical history significant for coronary artery disease and atrial fibrillation. She was recently discharged from the hospital with a volume overload event, previously recovering from a pneumonia. Ultimately, she returned to the hospital about 2 weeks later with complaints of increasing shortness of breath and chest discomfort. She underwent a cardiac catheterization and was discovered to have operative disease. She is now postop day 0 from that procedure. She is on mechanical ventilation. She was brought up on a nitroglycerin drip as well as a Levophed drip. She was a little bit volume down. Her blood pressures were extremely low. She was paralyzed but not currently receiving any medication. Her blood pressures swung from very high to very low in a short period of time. Ultimately, we are working on stabilizing her at this moment. She cannot provide any additional elements of the history. She is currently likely under the influence of previous sedation which seems to be wearing off. She is still under the influence of some paralytics as well. PAST MEDICAL HISTORY: 1. Coronary artery disease. 2. Atrial fibrillation, paroxysmal. 3. History of cerebrovascular accident. 4. Lung carcinoid, status post left lower lobe lobectomy. 5. Hypertension. PAST SURGICAL HISTORY: 1. Lobectomy of the left lower lobe. 2. Coronary artery bypass graft with possible atrial ligation (op note currently pending). 3. Cardiac ablation. 4. Hip surgery. FAMILY HISTORY: Noncontributory. SOCIAL HISTORY: Negative for alcohol, tobacco, or illicit drug use. ALLERGIES: NO KNOWN DRUG ALLERGIES. MEDICATIONS: List of her inpatient medications was reviewed. No specific updates were made at this time. REVIEW OF SYSTEMS: Cannot be obtained as the patient is currently intubated and under the influence of sedating medications and paralytics. PHYSICAL EXAMINATION: VITAL SIGNS: Afebrile, pulse 80, blood pressure 128/60, respirations 17, saturation 100% on 40% FiO2 and PEEP of 5. HEENT: Normocephalic and atraumatic. Sclerae white. Conjunctivae pink. Oral mucosa is moist without lesions. LUNGS: Decent air entry. There is a slightly prolonged expiratory phase, but I do not appreciate wheezing or rhonchi. HEART: Normal rate, regular. ABDOMEN: Soft, nontender, nondistended. Bowel sounds are positive. MUSCULOSKELETAL: No cyanosis or clubbing. There is no pitting in the bilateral lower extremities. NEUROLOGIC: Grossly nonfocal. She has sluggish pupil on the right, and a brisk pupillary response with light on the left. She is overbreathing the ventilator comfortably, and demonstrates weak cough and gag at this point. She is not moving any of the bilateral lower extremities with noxious stimuli as of yet. LABORATORY DATA: WBC 15.2, hemoglobin of 8.5 (11.4 was baseline). INR 1.5. PH 7.48, pCO2 29, PO2 180. Creatinine 0.67. Basic metabolic profile is otherwise unremarkable. Glucose 125, calcium 7.7. Troponin was previously up trending to 2.08. Blood cultures x2 are negative. IMAGING: Prior chest x-ray demonstrated significant improvement in the left- sided pleural effusion. Repeat chest x-ray following our procedure demonstrates endotracheal tube in good position. No pneumothorax is evident. Mediastinal drain, and/or chest tubes are in good position. There is a right IJ central venous catheter which terminates at the cavoatrial junction. ASSESSMENT: 1. Acute hypoxic respiratory failure. 2. Coronary artery disease, status post coronary artery bypass graft, postop day zero. 3. Atrial fibrillation. 4. Chronic diastolic heart failure. 5. History of carcinoid, status post left lower lobectomy. DISCUSSION AND PLAN: I will replace the patient's calcium. We are in the process of giving her a touch of blood. We will wean away the Levophed, and the nitroglycerin drip. Once her hemodynamics stabilized, we will put on a spontaneous breathing trial and consider her for extubation. I would like to see the obstructive airflow limitation minimize before we extubate. Critical Care will continue to follow very closely. CRITICAL CARE TIME: 30 minutes. Job ID: [id number] MTDD
--- NOTE | 2018-05-13 21:31 | EKG ---
Test Reason : POST CABG Blood Pressure : / mmHG Vent. Rate : 072 BPM Atrial Rate : 072 BPM P-R Int : 140 ms QRS Dur : 080 ms QT Int : 438 ms P-R-T Axes : 002 050 037 degrees QTc Int : 479 ms Normal sinus rhythm with sinus arrhythmia Low voltage QRS Borderline ECG When compared with ECG of 11-MAY-2018 04:27, (Unconfirmed) Borderline criteria for Anterior infarct are no longer Present ST no longer depressed in Lateral leads Confirmed by SUNNI FITCH, SHomero ([id number]) on 05/13/2018 9:30:38 PM Referred By: KIRA Confirmed By:DR. Karis MOELLER MD
[2018-05-14] MEDS: Insulin Regular 300 UNITS/3 ML VIAL SC PRN (04:19)
[2018-05-14 04:26] LABS: #Basophils 0.1 thou/uL (0.0-0.2); #Lymphocytes 1.6 thou/uL (1.20-3.40); #Monocytes 1.1 thou/uL (0.11-0.59); #Neutrophils 8.2 thou/uL (1.40-6.50); %Basophils 0.5 % (0.0-1.0); %Eosinophils 0.3 % (0.0-10.0); %Lymphocytes 14.3 % (21.0-51.0); %Monocytes 10.1 % (0.0-10.0); %Neutrophils 74.9 % (42.0-75.0); Hemoglobin 9.2 g/dL (12.0-16.0); Mean Corpuscular HGB CONC 30.4 g/dL (32.0-36.0); Mean Corpuscular Hemoglobin 21.8 pg (27.0-31.0); Mean Corpuscular Volume 71.6 fL (78.0-98.0); Mean Platelet Volume 9.8 fL (7.4-10.4); Platelet Count 145 thou/uL (130-400); RBC Distribution Width 18.9 % (11.5-14.5); Red Blood Cell (RBC) Count 4.21 mill/uL (4.20-5.40)
[2018-05-14 04:50] LABS: Anion Gap 13 mmol/L (10-20); BUN (Urea Nitrogen) 25 mg/dL (9.8-20.1); Calc. Creatinine Clearance 44 mL/min (70-130); Calcium 8.4 mg/dL (7.8-10.44); Carbon Dioxide 22 mmol/L (23-31); Chloride 112 mmol/L (98-107); Estimated GFR-MDRD 51; Glucose 130 mg/dL (83-110); Potassium 4.5 mmol/L (3.5-5.1); Sodium 142 mmol/L (136-145)
[2018-05-14] MEDS: Ketorolac Tromethamine 30 MG/ML VIAL IVP SCH (05:22)
[2018-05-14] MEDS: Sodium Chloride 0.9% 1,000 ML IV SCH (05:22)
[2018-05-14] MEDS ORDERED: diphenhydrAMINE 25 MG CAP PO PRN (08:38)
[2018-05-14] MEDS ORDERED: Artificial Tears 18 DROP/0.9 ML EA EYE PRN (08:38)
[2018-05-14] MEDS ORDERED: Mineral Oil ENEMA PR PRN (08:38)
[2018-05-14] MEDS ORDERED: Mag-Al 1200 mg/1200 mg/30 ML UDCUP PO PRN (08:38)
[2018-05-14] MEDS ORDERED: Bisacodyl 10 MG SUPP PR PRN (08:38)
[2018-05-14] MEDS ORDERED: Furosemide 40 MG/4 ML VIAL SLOW IVP SCH (08:38)
[2018-05-14] MEDS ORDERED: Metolazone 5 MG TAB PO SCH (08:38)
[2018-05-14] MEDS ORDERED: Bisacodyl 5 MG TAB PO PRN (08:38)
[2018-05-14] MEDS ORDERED: Guaifenesin DM 100-10/5 ML UDCUP PO PRN (08:38)
[2018-05-14] MEDS ORDERED: Nitroglycerin 0.4 MG TAB (25 Tab Bottle) SL PRN (08:38)
--- NOTE | 2018-05-14 09:08 | PDOC.CTH ---
Cardiology Progress Note - Subjective pt. seen and eval. by me. Awake and alert. C/o of leg pain and chest tube discomfort. Stable s/p CABG. - Objective Vital Signs Temp Pulse Resp BP Pulse Ox 05/14/18 07:05 80 19 92 L 05/14/18 07:00 97.6 F 05/14/18 06:00 15 05/14/18 04:00 12 05/14/18 03:00 98.1 F 05/14/18 02:18 81 05/14/18 02:00 13 05/14/18 00:00 13 05/13/18 23:42 80 115/49 L 05/13/18 23:00 98.2 F 05/13/18 22:00 10 L Weight 149 lb 7.574 oz 05/13/18 05/14/18 05/15/18 06:59 06:59 06:59 Intake Total 1654 Output Total 980 65 Balance 674 -65 - Physical Examination General/Neuro: alert & oriented x3 Neck: no JVD present Lungs: CTA Heart: RRR Abdomen: soft - Telemetry Telemetry Rhythm: NSR - Labs Result Diagrams: 05/14/18 04:05 05/14/18 04:05 Troponin/CKMB CK-MB (CK-2) 17.8 ng/mL (0-6.6) H* 05/11/18 14:26 Troponin I 2.088 ng/mL (< 0.028) H* 05/11/18 14:26 - Assessment/Plan 1. 3V CAD with s/p LHC on 05/11/2018 - CABG x 5: Holcomb->LAD, SVG-> Diag1, SVG-> OM1-OM2, SVG-> PDAwith MAXIMUS ligation 05/13/18. 2. HTN - Cont. current medication with Clonidin PRN for SBP > 160 3. Afib - remains in SR with Multaq and ASA 4. Chronic Diastolic HF - resume betablockers and ARB if tolerated. 5. Hx of CVA 6. Anxiety - On Xanax PRN 7. Hx of lobectomy
--- NOTE | 2018-05-14 09:32 | RAD ---
CHEST 1 VIEW: INDICATION: Status post open heart surgery. COMPARISON: Prior exam dated 05/13/2018. FINDINGS: The patient remains intubated with associated right internal jugular central venous catheter, left-si ded thoracostomy tube, and mediastinal drain. No pneumothorax is evident. Cardiomegaly persists. C alcified granuloma of the right mid lung is stable. Midline sternotomy changes are similar-appearing . IMPRESSION: Stable exam. POS: TPC
[2018-05-14] MEDS: Aspirin Chewable 81 MG TAB PO SCH (09:58)
[2018-05-14] MEDS: Dronedarone HCl 400 MG TAB PO SCH ×2 (09:58→17:10)
[2018-05-14] MEDS: HYDROcodone/Acetaminophen 5/325 mg Tablet PO PRN (09:58)
[2018-05-14] MEDS: Senokot S 8.6-50 MG TAB PO SCH ×2 (09:58→21:39)
[2018-05-14] MEDS: Diltiazem HCl 125 MG, Admixture Fee 1 EACH in Sodium Chloride 0.9% 100 ML IVPB SCH (11:05)
--- NOTE | 2018-05-14 11:12 | PRG ---
DATE OF SERVICE: 05/14/2018 SERVICE: Pulmonary Medicine. INTERVAL HISTORY: The patient is doing really well from a Respiratory standpoint. Denies any current chest pain, fevers, or chills. Otherwise, there has been no interval change to her condition. She is actually doing quite well. She extubated just fine yesterday. She has a little soreness in her chest, which is appropriate. Chest tubes remain in place. It hurts whenever she takes a very deep breath. Outside of that, she has no specific complaints. Her appetite has not perked up very much at this moment. PHYSICAL EXAMINATION: VITAL SIGNS: Afebrile, pulse 82, blood pressure 140/55, respirations 17, saturation 92% on room air. GENERAL: The patient is awake and alert, in no apparent distress. LUNGS: Decent air entry. Minimal crackles are present. No prolonged expiratory phase is noted. HEART: Normal rate. Regular. ABDOMEN: Soft, nontender, nondistended. Bowel sounds are positive. MUSCULOSKELETAL: No cyanosis or clubbing. There is 1 to 2+ pitting in the bilateral lower extremities. NEUROLOGIC: Grossly nonfocal. LABORATORY DATA: WBC 11, hemoglobin 9.2, platelets 145,000. Creatinine 1.5. Basic metabolic profile is completely unremarkable. Creatinine is up trending to 1.03, which is well above baseline, bicarb 22. IMAGING: Chest x-ray demonstrates a right IJ central venous catheter at the cavoatrial junction. Mediastinal drains are in good position. I do not see any obvious pneumothorax. ASSESSMENT: 1. Acute hypoxic respiratory failure. 2. Coronary artery disease, status post coronary artery bypass graft, postop day #1. 3. Atrial fibrillation, rate controlled. 4. Chronic diastolic heart failure. 5. History of carcinoid, status post left lower lobectomy. DISCUSSION AND PLAN: The patient is doing absolutely wonderful in the postoperative period. We will initiate our mobilization efforts today. Diet will be advanced as tolerated. Pulmonary Critical Care will continue to follow along in this location. Job ID: [id number]
[2018-05-14] MEDS ORDERED: Digoxin 0.5 MG/2 ML AMP ONE (11:43)
[2018-05-14] MEDS ORDERED: Digoxin 0.5 MG/2 ML AMP SLOW IVP SCH (12:15)
--- NOTE | 2018-05-14 12:27 | PRG ---
DATE OF SERVICE: 05/14/2018 SUBJECTIVE: The patient is postop day #1, status post coronary artery bypass grafting x5. The patient is awake, conversing without difficulty. She is very tired. Complains of soreness. However, answers all questions appropriately. OBJECTIVE: VITAL SIGNS: Temperature 97.6, pulse 80, respiration 19, and pulse ox 92% on 2 L. GENERAL: Stable. HEART: Regular rate. LUNGS: Relatively clear. ABDOMEN: Soft. EXTREMITIES: With no edema. LABORATORY DATA: White count 11.0, H and H 9.2 and 30, and platelet 145. Sodium 142, potassium 4.5, creatinine 1.03, BUN 51, and blood sugar 128. ASSESSMENT: 1. Postop day #1, status post coronary artery bypass grafting x5. 2. Chronic diastolic congestive heart failure. 3. Acute hypoxic respiratory failure. 4. Status post acute myocardial infarction. 5. Atrial fibrillation with rapid ventricular response, stable. 6. Status post cardiac catheterization. 7. Anxiety disorder. 8. History of carcinoid, status post left lower lobe lobectomy. PLAN: 1. Routine postop care. 2. Cardiac rehab. 3. We will continue to follow. Job ID: [id number]
--- NOTE | 2018-05-14 14:46 | EKG ---
Test Reason : A FIB Blood Pressure : / mmHG Vent. Rate : 151 BPM Atrial Rate : 150 BPM P-R Int : 000 ms QRS Dur : 082 ms QT Int : 302 ms P-R-T Axes : 000 057 034 degrees QTc Int : 478 ms Atrial fibrillation with rapid ventricular response ST depression, consider subendocardial injury or digitalis effect Abnormal ECG When compared with ECG of 13-MAY-2018 13:42, Atrial fibrillation has replaced Sinus rhythm Vent. rate has increased BY [address] now depressed in Anterolateral leads T wave inversion now evident in Lateral leads Confirmed by SUNNI FITCH, DR. Dyson ([id number]) on 05/14/2018 2:46:27 PM Referred By: DONNIE Confirmed By:DR. Karis MOELLER MD
--- NOTE | 2018-05-14 14:47 | EKG ---
Test Reason : A FIB Blood Pressure : / mmHG Vent. Rate : 196 BPM Atrial Rate : 227 BPM P-R Int : 000 ms QRS Dur : 076 ms QT Int : 202 ms P-R-T Axes : 046 068 247 degrees QTc Int : 364 ms Atrial flutter with variable A-V block Abnormal ECG When compared with ECG of 14-MAY-2018 11:12, (Unconfirmed) Atrial flutter has replaced Atrial fibrillation T wave inversion now evident in Inferior leads T wave inversion more evident in Lateral leads Confirmed by SUNNI FITCH, DR. Dyson ([id number]) on 05/14/2018 2:46:52 PM Referred By: DONNIE Confirmed By:DR. Karis MOELLER MD
[2018-05-14] MEDS: Ondansetron PF 4 MG/2 ML Vial IVP PRN (15:23)
--- NOTE | 2018-05-14 16:18 | PDOC.CTH ---
Cardiology Progress Note - Subjective EP PROGRESS NOTE: 05/14/18 Seen as fup for AF. No heart racing, palpitations, chest pain, dizziness, or passing out. She is having post operative pain. Family bedside - Objective Vital Signs Temp Pulse Resp BP Pulse Ox 05/14/18 12:17 135 H 05/14/18 12:00 97.5 F L 05/14/18 11:45 135 H 05/14/18 11:10 160 H 99/51 L 05/14/18 08:00 93 L 05/14/18 07:05 80 19 92 L 05/14/18 07:00 97.6 F 05/14/18 06:00 15 Weight 149 lb 7.574 oz 05/13/18 05/14/18 05/15/18 06:59 06:59 06:59 Intake Total 1654 Output Total 980 395 Balance 674 -395 - Physical Examination General/Neuro: alert & oriented x3, NAD Neck: carotid US brisk, no JVD present Lungs: CTA, unlabored respirations Heart: PMI normal, RRR Abdomen: NT/ND, soft - Telemetry Telemetry Rhythm: SR - Labs Result Diagrams: 05/14/18 04:05 05/14/18 04:05 Troponin/CKMB CK-MB (CK-2) 17.8 ng/mL (0-6.6) H* 05/11/18 14:26 Troponin I 2.088 ng/mL (< 0.028) H* 05/11/18 14:26 - Assessment/Plan 1. CAD -s/p [facility] on 05/11/2018 -Plan for CABG with MAXIMUS ligation tomorrow. 2. HTN -Per cardiology 3. Paroxysmal atrial firillationb - remains in SR with Multaq and ASA - may require amiodarone instead of multaq during perioperative time if multaq isn't strong enough to hold NSR 4. Chronic Diastolic HF - per cardiology 5. Anxiety 6. CHADS2-VASC >/= 8 ( age-2, gender-1, HTN-1, vascular disease-1, prior CVA-2, HF-1) -OAC is indicated. 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 Continue multaq for now, but may need amiodarone with recent CABG. Will continue to follow.
[2018-05-14] MEDS: Bumetanide 1 MG TAB PO SCH (17:11)
[2018-05-14] MEDS: Atorvastatin Calcium 20 MG TAB PO SCH (21:39)
[2018-05-15 00:03] LABS: Bilirubin Negative (Negative); Blood, Urine Trace (Negative); Clarity CLEAR (Clear); Glucose, Urine (Dipstick) Negative (Negative); Leukocyte Negative (Negative); Nitrite Negative (Negative); Protein, Urine (Dipstick) Negative (Neg-Trace); Specific Gravity, Urine 1.008 (1.002-1.036); Urobilinogen 0.2 mg/dL (0.2-1.0)
[2018-05-15 00:06] LABS: Bacteria/HPF None Seen HPF (None Seen); Hyaline Casts/LPF 4-6 HYALINE CAST LPF (0-3 Hyaline); RBC/HPF 0-3 HPF (0-3); Squamous Epithelial 0-3 HPF (0-3); WBC/HPF 0-3 HPF (0-3)
[2018-05-15] MEDS: Diltiazem HCl 125 MG, Admixture Fee 1 EACH in Sodium Chloride 0.9% 100 ML IVPB SCH (05:27)
[2018-05-15 05:43] LABS: #Lymphocytes 2.1 thou/uL (1.20-3.40); #Monocytes 1.8 thou/uL (0.11-0.59); #Neutrophils 8.1 thou/uL (1.40-6.50); %Eosinophils 0.2 % (0.0-10.0); %Lymphocytes 17.8 % (21.0-51.0); %Monocytes 14.7 % (0.0-10.0); %Neutrophils 67.3 % (42.0-75.0); Hemoglobin 8.8 g/dL (12.0-16.0); Mean Corpuscular HGB CONC 30.4 g/dL (32.0-36.0); Mean Corpuscular Hemoglobin 21.5 pg (27.0-31.0); Mean Corpuscular Volume 70.5 fL (78.0-98.0); Mean Platelet Volume 8.6 fL (7.4-10.4); Platelet Count 159 thou/uL (130-400); RBC Distribution Width 19.4 % (11.5-14.5)
[2018-05-15 06:05] LABS: Anion Gap 8 mmol/L (10-20); BUN (Urea Nitrogen) 26 mg/dL (9.8-20.1); Calc. Creatinine Clearance 53 mL/min (70-130); Calcium 8.7 mg/dL (7.8-10.44); Carbon Dioxide 30 mmol/L (23-31); Chloride 109 mmol/L (98-107); Estimated GFR-MDRD 63; Glucose 144 mg/dL (83-110); Potassium 3.8 mmol/L (3.5-5.1); Sodium 143 mmol/L (136-145)
--- NOTE | 2018-05-15 08:14 | RAD ---
FRadiograph chest one view: 40 07/29/2018 7:43 AM HISTORY: 83-year-old female status post CABG COMPARISON: 05/14/2018 4:51 AM FINDINGS: Endotracheal tube has been removed. Right IJ central line remains. Signs of previous CABG. Mild nodul ar interstitial densities at lung bases. No consolidation. No pneumothorax. IMPRESSION: 1. Interval removal of endotracheal tube. 2. No other interval change.
[2018-05-15] MEDS: Bumetanide 1 MG TAB PO SCH ×2 (08:27→16:59)
[2018-05-15] MEDS: Senokot S 8.6-50 MG TAB PO SCH ×2 (08:28→21:28)
[2018-05-15] MEDS: Aspirin Chewable 81 MG TAB PO SCH (08:28)
[2018-05-15] MEDS: Dronedarone HCl 400 MG TAB PO SCH ×2 (08:28→16:59)
[2018-05-15] MEDS: HYDROcodone/Acetaminophen 5/325 mg Tablet PO PRN ×3 (10:04→21:28)
--- NOTE | 2018-05-15 13:25 | PDOC.CTH ---
Cardiology Progress Note - Subjective Patient with c/o incisional CP. Mild SOB. Family states she also complains of leg pain. Improved after MARTÍN hose removed. Converted to AF yesterday and back to NSR on cardizem gtt. - Objective Vital Signs Temp Pulse Pulse Pulse Resp BP BP 05/15/18 12:46 61 66 128/60 155/67 H 05/15/18 12:15 98.1 F 60 18 05/15/18 08:20 97.8 F 78 18 05/15/18 04:00 98.7 F 73 19 BP Pulse Ox Pulse Ox Pulse Ox 05/15/18 12:46 91 L 91 L 05/15/18 12:15 126/62 98 05/15/18 08:20 170/73 H 99 05/15/18 04:00 156/70 H 97 Weight 146 lb 1.6 oz 05/14/18 05/15/18 05/16/18 06:59 06:59 06:59 Intake Total 1654 260 Output Total 980 1345 Balance 674 -1085 - Physical Examination General/Neuro: alert & oriented x3 Neck: no JVD present Lungs: CTA Heart: RRR Abdomen: NT/ND Extremities: other: (+1 CAROLYN) - Telemetry Telemetry Rhythm: SR 70s - Labs Result Diagrams: 05/15/18 05:31 05/15/18 05:31 Troponin/CKMB CK-MB (CK-2) 17.8 ng/mL (0-6.6) H* 05/11/18 14:26 Troponin I 2.088 ng/mL (< 0.028) H* 05/11/18 14:26 - Assessment/Plan 1. 3VCAD s/p CABG x 5 and MAXIMUS ligation 05/13/18. 2. HTN - 3. Parox AF - on Multaq, bblocker, card gtt 4. Chronic Diastolic HF - resume betablockers and ARB if tolerated. 5. Hx of CVA Control pain with scheduled meds. Hopefully will improve as CT removed. Increase bblocker. Will try to wean card gtt in next 24 hours.
--- NOTE | 2018-05-15 18:06 | PRG ---
DATE OF SERVICE: 05/15/2018 SUBJECTIVE: The patient is doing well this morning. She is awake and alert. Answering questions appropriately. Smiling. Daughters are present. OBJECTIVE: VITAL SIGNS: Temperature 97.8, pulse 78, respirations 18, pulse ox 99 on 0.5 nasal cannula, blood pressure 136/70, 170/73. HEART: Regular rate. LUNGS: With anteriorly are clear with fine rales posterior at the bases. ABDOMEN: Soft. EXTREMITIES: Left lower extremity with some swelling from the vein extraction site. LABORATORY DATA: White count 12.0 and H and H 8.8 and 28.9. Sodium 143, potassium 3.8, chloride 109, creatinine 0.86, BUN 26, and blood sugar 144. ASSESSMENT: 1. Postop day #2, status post coronary artery bypass grafting x5. 2. Chronic diastolic congestive heart failure. 3. Acute hypoxic respiratory failure. 4. Status post acute myocardial infarction. 5. Atrial fibrillation with rapid ventricular response, stable. 6. Status post cardiac cath. 7. Anxiety disorder. 8. History of carcinoid, status post left lower lobe lobectomy. PLAN: 1. Continue routine postop care. 2. Continue to ambulate. 3. Cardiac rehab. 4. Advanced to a heart healthy, low-sodium diet. We will continue to follow. Job ID: [id number]
[2018-05-15] MEDS: Lisinopril 5 MG TAB PO SCH (21:27)
[2018-05-15] MEDS: Atorvastatin Calcium 20 MG TAB PO SCH (21:28)
[2018-05-15] MEDS ORDERED: Diltiazem HCl 125 MG, Admixture Fee 1 EACH in Sodium Chloride 0.9% 100 ML IVPB SCH (23:15)
[2018-05-15] MEDS ORDERED: Digoxin 0.5 MG/2 ML AMP SLOW IVP SCH (23:15)
[2018-05-15] MEDS ORDERED: Ketorolac Tromethamine 30 MG/ML VIAL IVP PRN (23:27)
[2018-05-15] MEDS ORDERED: Morphine 4 MG/ML VIAL SLOW IVP SCH (23:30)
[2018-05-16 05:09] LABS: #Eosinphils 0.1 thou/uL (0.0-0.7); #Lymphocytes 1.8 thou/uL (1.20-3.40); #Monocytes 1.3 thou/uL (0.11-0.59); #Neutrophils 7.1 thou/uL (1.40-6.50); %Basophils 0.2 % (0.0-1.0); %Lymphocytes 17.8 % (21.0-51.0); %Monocytes 12.2 % (0.0-10.0); %Neutrophils 68.7 % (42.0-75.0); Hemoglobin 8.3 g/dL (12.0-16.0); Mean Corpuscular HGB CONC 30.2 g/dL (32.0-36.0); Mean Corpuscular Hemoglobin 21.9 pg (27.0-31.0); Mean Corpuscular Volume 72.8 fL (78.0-98.0); Mean Platelet Volume 9.3 fL (7.4-10.4); Platelet Count 160 thou/uL (130-400); RBC Distribution Width 19.1 % (11.5-14.5); Red Blood Cell (RBC) Count 3.78 mill/uL (4.20-5.40); White Blood Cell (WBC) Count 10.4 thou/uL (4.8-10.8)
[2018-05-16 05:27] LABS: Anion Gap 12 mmol/L (10-20); BUN (Urea Nitrogen) 30 mg/dL (9.8-20.1); Calc. Creatinine Clearance 53 mL/min (70-130); Calcium 8.3 mg/dL (7.8-10.44); Carbon Dioxide 26 mmol/L (23-31); Chloride 107 mmol/L (98-107); Estimated GFR-MDRD 65; Glucose 106 mg/dL (83-110); Potassium 3.7 mmol/L (3.5-5.1); Sodium 141 mmol/L (136-145)
[2018-05-16] MEDS: Bumetanide 1 MG TAB PO SCH ×2 (09:10→16:44)
[2018-05-16] MEDS: Potassium Chloride 10 MEQ TAB PO SCH (09:11)
[2018-05-16] MEDS: Dronedarone HCl 400 MG TAB PO SCH ×2 (09:11→16:44)
[2018-05-16] MEDS: Senokot S 8.6-50 MG TAB PO SCH ×2 (09:12→21:15)
[2018-05-16] MEDS: Aspirin Chewable 81 MG TAB PO SCH (09:12)
[2018-05-16] MEDS: Lisinopril 5 MG TAB PO SCH (09:12)
[2018-05-16] MEDS ORDERED: Polyethylene Glycol 3350 17 GM Packet PO SCH (10:45)
--- NOTE | 2018-05-16 13:57 | PDOC.CTH ---
Cardiology Progress Note - Subjective Patient seen earlier today. Converted back to sinus romel overnight. Cardizem gtt stopped this morning and remains romel 49-50s. Toprol also stopped (unknown if fell off MAR or actually verbally discontinued by physician). Patient still weak. Chest tubes pulled earlier today. - Objective Vital Signs Temp Pulse Pulse Pulse Resp BP BP 05/16/18 12:59 57 L 57 L 122/55 L 05/16/18 11:50 97.5 F L 53 L 16 05/16/18 09:12 134/62 05/16/18 07:32 97.6 F 56 L 18 05/16/18 03:16 98.5 F 104 H 18 BP BP Pulse Ox 05/16/18 12:59 126/59 L 05/16/18 11:50 114/57 L 98 05/16/18 09:12 05/16/18 07:32 120/56 L 99 05/16/18 03:16 102/53 L 94 L Weight 145 lb 9.6 oz 05/15/18 05/16/18 05/17/18 06:59 06:59 06:59 Intake Total 260 1500 Output Total 1345 1500 20 Balance -1085 0 -20 - Physical Examination General/Neuro: alert & oriented x3 Neck: no JVD present Lungs: CTA Heart: RRR Abdomen: NT/ND - Telemetry Telemetry Rhythm: SB - Labs Result Diagrams: 05/16/18 04:41 05/16/18 04:42 Troponin/CKMB CK-MB (CK-2) 17.8 ng/mL (0-6.6) H* 05/11/18 14:26 Troponin I 2.088 ng/mL (< 0.028) H* 05/11/18 14:26 - Assessment/Plan 1. 3VCAD s/p CABG x 5 and MAXIMUS ligation 05/13/18. 2. HTN - 3. Parox AF - on Multaq 4. Chronic Diastolic HF - resume betablockers and ARB if tolerated. 5. Hx of CVA Continue increased activity as tolerated. Rhythm stable. No changes. Will try to add back bblocker as tolerated.
--- NOTE | 2018-05-16 14:27 | PRG ---
DATE OF SERVICE: 05/16/2018 SUBJECTIVE: The patient continues to progress slowly. Did ambulate once in the halls yesterday. Daughters are present. OBJECTIVE: VITAL SIGNS: Temperature 97.6, pulse 56, respirations 18, blood pressure 134/62, and pulse ox 99 on 2 L. Blood pressure 120/56. HEART: Regular rate. LUNGS: Clear. ABDOMEN: Soft. LABORATORY DATA: H and H 8.3 and 27.5. Electrolytes normal. Creatinine 0.84, BUN 30, and glucose 106. ASSESSMENT: 1. Postop day #3 status post coronary artery bypass grafting x5. 2. Chronic diastolic congestive heart failure. 3. Acute hypoxic respiratory failure. 4. Status post acute myocardial infarction. 5. Atrial fibrillation with rapid ventricular response, stable. 6. Status post cardiac cath. 7. Anxiety disorder. 8. History of carcinoid, status post left lower lobe lobectomy. PLAN: 1. Encourage the daughters to double her walking today. 2. Hold [place] and to use Toradol p.r.n. This seems to work best for patient. 3. Discontinue Maher. 4. Chest tube removed this morning. Job ID: [id number]
[2018-05-16] MEDS: Atorvastatin Calcium 20 MG TAB PO SCH (21:14)
[2018-05-17 05:52] LABS: #Basophils 0.1 thou/uL (0.0-0.2); #Eosinphils 0.1 thou/uL (0.0-0.7); #Lymphocytes 2.1 thou/uL (1.20-3.40); #Monocytes 1.1 thou/uL (0.11-0.59); #Neutrophils 6.3 thou/uL (1.40-6.50); %Basophils 1.1 % (0.0-1.0); %Eosinophils 1.2 % (0.0-10.0); %Lymphocytes 21.3 % (21.0-51.0); %Monocytes 11.7 % (0.0-10.0); %Neutrophils 64.7 % (42.0-75.0); Hemoglobin 8.4 g/dL (12.0-16.0); Mean Corpuscular HGB CONC 30.6 g/dL (32.0-36.0); Mean Corpuscular Hemoglobin 21.9 pg (27.0-31.0); Mean Corpuscular Volume 71.3 fL (78.0-98.0); Mean Platelet Volume 9.1 fL (7.4-10.4); Platelet Count 196 thou/uL (130-400); RBC Distribution Width 19.3 % (11.5-14.5); Red Blood Cell (RBC) Count 3.82 mill/uL (4.20-5.40); White Blood Cell (WBC) Count 9.7 thou/uL (4.8-10.8)
[2018-05-17 06:17] LABS: Anion Gap 10 mmol/L (10-20); BUN (Urea Nitrogen) 35 mg/dL (9.8-20.1); Calc. Creatinine Clearance 52 mL/min (70-130); Calcium 8.6 mg/dL (7.8-10.44); Carbon Dioxide 32 mmol/L (23-31); Chloride 103 mmol/L (98-107); Estimated GFR-MDRD 59; Glucose 100 mg/dL (83-110); Potassium 3.2 mmol/L (3.5-5.1); Sodium 142 mmol/L (136-145)
--- NOTE | 2018-05-17 07:41 | RAD ---
FChest one view HISTORY: Heart surgery. Follow-up. COMPARISON: 05/15/2018. FINDINGS: Cardiac silhouette is magnified by projection and slightly enlarged. Mediastinum is midline with aortic calcification, postoperative changes, and a right internal jugular central venous cathet er. Pulmonary vasculature is more engorged with increasing patchy bilateral perihilar infiltrates. Minimal opacity at the left base has increased. Blunting of the left lateral costophrenic angle. Old left posterolateral rib fractures. No evidence of pneumothorax. IMPRESSION: Increasing left basilar atelectasis and left pleural fluid. Increasing pulmonary vascular congestion. Otherwise stable postoperative appearance of the chest.
[2018-05-17] MEDS: Senokot S 8.6-50 MG TAB PO SCH ×2 (08:20→21:24)
[2018-05-17] MEDS: Famotidine 20 MG TAB PO SCH ×2 (08:20→21:24)
[2018-05-17] MEDS: Bumetanide 1 MG TAB PO SCH (08:20)
[2018-05-17] MEDS: Potassium Chloride 10 MEQ TAB PO SCH (08:20)
[2018-05-17] MEDS: Polyethylene Glycol 3350 17 GM Packet PO SCH (08:21)
[2018-05-17] MEDS: Dronedarone HCl 400 MG TAB PO SCH ×2 (08:21→16:10)
[2018-05-17] MEDS: Aspirin Chewable 81 MG TAB PO SCH (08:21)
--- NOTE | 2018-05-17 09:28 | PRG ---
DATE OF SERVICE: 05/17/2018 SUBJECTIVE: The patient is slightly improved. She walks in the hallway with some shortness of breath. Daughter and aide are present. Appetite is good. She states that her chest wall pain is 4/10. Continues to be tired and lethargic at times. Heart rate remains in normal sinus and sinus bradycardia. OBJECTIVE: VITAL SIGNS: Temperature 97.6, pulse is 64, respirations 14, blood pressure 159/71, pulse ox is 99% on 2 L nasal cannula. GENERAL: She is awake and alert. Speech is clear. HEENT: Mucosa is moist. She keeps her eyes closed most of the time, but answers questions appropriately. NECK: Supple. CHEST WALL: Incision is clean, dry, and intact. HEART: Regular rate and rhythm. LUNGS: Clear anteriorly. ABDOMEN: Soft. EXTREMITIES: Left lower leg tenderness. LABORATORY DATA: Hemoglobin and hematocrit 8.4 and 27.3. Sodium 142, potassium 3.2, chloride 103, CO2 of 32, BUN and creatinine 35 and 0.91, serum glucose of 59. Chest x-ray from this morning reveals increasing left basilar atelectasis and left pleural fluid, vascular congestion. ASSESSMENT AND PLAN: This is an 83-year-old female patient with paroxysmal atrial fibrillation and known coronary artery disease, status post coronary artery bypass graft. 1. Status post coronary artery bypass graft. Plan per Cardiovascular Surgery. Continuing therapy. Hopefully be able to transfer to inpatient rehab soon. 2. Paroxysmal atrial fibrillation. Seems to be controlled, in normal sinus rhythm. Watching for sinus bradycardia. Plan per Cardiology. 3. Persistent left pleural effusion. We will monitor closely, possibly increase diuresis at this time. Has outpatient followup with Pulmonary, but may have Dr. Lazo see again if pleural effusion worsens. 4. Weakness. Continue rehab efforts. Job ID: [id number]
[2018-05-17] MEDS: Ondansetron PF 4 MG/2 ML Vial IVP PRN (09:54)
--- NOTE | 2018-05-17 11:55 | PDOC.CTH ---
Cardiology Progress Note - Subjective The pt seen and examined. No overnight events. No cardiac complaints. She stated she is very tired this AM. - Objective Vital Signs Temp Pulse Resp BP BP Pulse Ox 05/17/18 11:21 65 143/65 H 05/17/18 08:20 98 05/17/18 08:00 97.7 F 66 18 174/76 H 98 05/17/18 04:00 97.6 F 64 14 177/78 H 99 Weight 155 lb 7 oz 05/16/18 05/17/18 05/18/18 06:59 06:59 06:59 Intake Total 1500 780 Output Total 1500 920 Balance 0 -140 - Physical Examination General/Neuro: alert & oriented x3 Neck: no JVD present Lungs: CTA (diminished at bases; instructed to use IS qhours) Heart: RRR Abdomen: soft Extremities: other: (No edema;) - Telemetry Telemetry Rhythm: SR - Labs Result Diagrams: 05/18/18 06:50 05/18/18 06:50 Troponin/CKMB CK-MB (CK-2) 17.8 ng/mL (0-6.6) H* 05/11/18 14:26 Troponin I 2.088 ng/mL (< 0.028) H* 05/11/18 14:26 - Assessment/Plan 1. 3VCAD s/p CABG x 5 and MAXIMUS ligation 05/13/18 - stable 2. HTN - Start Lisinopril 5mg BID; on Clonidin PRN for SBP > 160 3. Parox AF - Converted back to SR on 05/16/2018; On Multaq and ASA; Hx of MAXIMUS ligation 4. Chronic Diastolic HF - resume betablockers and ARB if tolerated. 5. Hx of CVA 6. Anxiety - On Xanax PRN 7. Hx of lobectomy MAR reviewed Pt. seen and eval. by me. I agree with the A/P by the BIODIES[employer] PRODUCT MANAGER. RRR. Chest clear. Decreased inspiratory effort. Seems depressed. Review of Systems - Review of Systems Constitutional: reports: see HPI, weakness EENTM: reports: no symptoms reported Respiratory: reports: no symptoms reported Cardiac (ROS): reports: no symptoms reported ABD/GI: reports: no symptoms reported : reports: no symptoms reported Musculoskeletal: reports: no symptoms reported
[2018-05-17] MEDS ORDERED: Lisinopril 5 MG TAB PO SCH (12:15)
--- NOTE | 2018-05-17 14:17 | PRG ---
DATE OF SERVICE: 05/17/2018 SERVICE: Pulmonary Medicine. INTERVAL HISTORY: Over the weekend, the patient started having significant GI discomfort. She is having nausea and vomiting. She is not passing much gas. She is not having any chest pain or shortness of breath. She has also developed a little bit of a delirium. She was mute for basically the last 2 days, but now she is starting to use one and two word sentences. She does not have any focal neurologic deficits. She is able to stand with assistance and has been working with physical therapy. PHYSICAL EXAMINATION: VITAL SIGNS: Afebrile, pulse 90, blood pressure 165/72, respirations 18, and saturation 98% on 2 L nasal cannula. GENERAL: The patient is awake and alert, in no apparent distress. LUNGS: Decent air entry. No prolonged expiratory phase is appreciated. HEART: Normal rate and regular. ABDOMEN: Soft. No tenderness to palpation. No rebound or guarding is present. Bowel sounds are hypoactive. GENITOURINARY: No Maher catheter. NEUROLOGIC: Nonfocal. LABORATORY DATA: WBC 9.7, hemoglobin 8.4 and stable, platelets 196,000. Potassium 3.2. Basic metabolic profile is otherwise unremarkable. Bicarb has jumped up to 32, BUN 35. Urine culture is negative to date. IMAGING STUDIES: Chest x-ray demonstrates increasing left basilar atelectasis and left-sided pleural effusion with pulmonary vascular congestion. ASSESSMENT: 1. Acute hypoxic respiratory failure. 2. Coronary artery disease, status post coronary artery bypass graft, postop day #4. 3. Atrial fibrillation, rate controlled. 4. Chronic diastolic heart failure. 5. History of carcinoid, status post left lower lobectomy. 6. Delirium. 7. Ileus. DISCUSSION AND PLAN: We will be aggressive with placing potassium. She developed a little bit of a contraction alkalosis. As such, we can back off on her diuretics. I will check a magnesium with tomorrow morning's laboratories. Pulmonary/Critical Care will continue to follow along closely. Job ID: [id number]
[2018-05-17] MEDS: Potassium Chloride 40 MEQ in Premix Bag 1 BAG IVPB SCH ×2 (14:41→18:25)
--- NOTE | 2018-05-17 16:55 | PDOC.CTH ---
Cardiology Progress Note - Subjective EP PROGRESS NOTE: 05/17/18 Seen as follow up for AF. Stable over weekend. No heart racing, palpitations , chest pain, dizziness, or passing out. She is having post operative pain. Family bedside - ROS chest pain - Objective Vital Signs Temp Pulse Pulse Pulse Resp BP BP 05/17/18 16:06 97.9 F 64 16 05/17/18 15:31 68 70 163/71 H 184/74 H 05/17/18 12:11 65 05/17/18 11:21 65 05/17/18 11:15 90 64 165/72 H 143/65 H 05/17/18 08:20 05/17/18 08:00 97.7 F 66 18 BP BP Pulse Ox Pulse Ox Pulse Ox 05/17/18 16:06 172/72 H 99 05/17/18 15:31 92 L 100 05/17/18 12:11 05/17/18 11:21 143/65 H 05/17/18 11:15 100 99 05/17/18 08:20 98 05/17/18 08:00 174/76 H 98 Weight 155 lb 7 oz 05/16/18 05/17/18 05/18/18 06:59 06:59 06:59 Intake Total 1500 780 Output Total 1500 920 Balance 0 -140 - Physical Examination General/Neuro: alert & oriented x3, NAD Neck: no JVD present Lungs: CTA Heart: RRR Abdomen: no HSM Extremities: + edema B (0) - Labs Result Diagrams: 05/17/18 05:06 05/17/18 05:06 Troponin/CKMB CK-MB (CK-2) 17.8 ng/mL (0-6.6) H* 05/11/18 14:26 Troponin I 2.088 ng/mL (< 0.028) H* 05/11/18 14:26 - Assessment/Plan 1. CAD -s/p C on 05/11/2018 -S/P CABG with MAXIMUS ligation. 2. HTN -Per cardiology 3. Paroxysmal atrial firillation - remains in SR with Multaq and ASA - may require amiodarone instead of multaq during perioperative time if multaq isn't strong enough to hold NSR 4. Chronic Diastolic HF - stable - per cardiology 5. CHADS2-VASC >/= 8 ( age-2, gender-1, HTN-1, vascular disease-1, prior CVA-2, HF-1) -OAC is indicated. Will address fdc need after CABG and will need surgical clearance to begin OAC eventually. Continue multaq for now, but may need amiodarone with recent CABG. Will continue to follow.
[2018-05-17] MEDS: Atorvastatin Calcium 20 MG TAB PO SCH (21:24)
[2018-05-17] MEDS: Lisinopril 5 MG TAB PO SCH (21:24)
[2018-05-18 07:24] LABS: #Eosinphils 0.2 thou/uL (0.0-0.7); #Lymphocytes 2.2 thou/uL (1.20-3.40); #Monocytes 1.1 thou/uL (0.11-0.59); #Neutrophils 6.1 thou/uL (1.40-6.50); %Basophils 0.1 % (0.0-1.0); %Eosinophils 1.9 % (0.0-10.0); %Lymphocytes 23.1 % (21.0-51.0); %Monocytes 11.1 % (0.0-10.0); %Neutrophils 63.8 % (42.0-75.0); Hemoglobin 8.7 g/dL (12.0-16.0); Mean Corpuscular HGB CONC 30.5 g/dL (32.0-36.0); Mean Corpuscular Hemoglobin 21.3 pg (27.0-31.0); Mean Corpuscular Volume 69.9 fL (78.0-98.0); Mean Platelet Volume 8.5 fL (7.4-10.4); Phosphorus 2.3 mg/dL (2.3-4.7); Platelet Count 244 thou/uL (130-400); RBC Distribution Width 18.7 % (11.5-14.5); Red Blood Cell (RBC) Count 4.08 mill/uL (4.20-5.40); White Blood Cell (WBC) Count 9.5 thou/uL (4.8-10.8)
[2018-05-18 07:26] LABS: Anion Gap 11 mmol/L (10-20); BUN (Urea Nitrogen) 24 mg/dL (9.8-20.1); Calc. Creatinine Clearance 69 mL/min (70-130); Calcium 8.7 mg/dL (7.8-10.44); Carbon Dioxide 37 mmol/L (23-31); Chloride 100 mmol/L (98-107); Estimated GFR-MDRD 81; Glucose 91 mg/dL (83-110); Magnesium 2.1 mg/dL (1.6-2.6); Potassium 3.7 mmol/L (3.5-5.1); Sodium 144 mmol/L (136-145)
[2018-05-18] MEDS: Dronedarone HCl 400 MG TAB PO SCH ×2 (08:35→21:17)
[2018-05-18] MEDS: Famotidine 20 MG TAB PO SCH ×2 (08:35→21:17)
[2018-05-18] MEDS: Potassium Chloride 10 MEQ TAB PO SCH (08:36)
[2018-05-18] MEDS: Aspirin Chewable 81 MG TAB PO SCH (08:36)
[2018-05-18] MEDS: Lisinopril 5 MG TAB PO SCH ×2 (08:36→21:17)
[2018-05-18] MEDS: Senokot S 8.6-50 MG TAB PO SCH ×2 (08:37→20:16)
[2018-05-18] MEDS: Polyethylene Glycol 3350 17 GM Packet PO SCH (08:37)
--- NOTE | 2018-05-18 09:53 | PRG ---
DATE OF SERVICE: 05/18/2018 Postop day #5. SUBJECTIVE: The patient is doing better. She states that her mentation is clearing up. She is talking and more interactive. She walks 6 times yesterday with little difficulty. She did require oxygen after her activity. Denies chest pain or shortness of breath. Left leg pain is improving. Positive bowel movements. OBJECTIVE: VITAL SIGNS: Temperature 97.9, pulse is 63 and regular, respirations 20, blood pressure 177/79 before her medications, and pulse ox 98% to 99% on 2 L. GENERAL: She is awake and alert. Speech is clear. Mucosa is moist. NECK: Supple. HEART: Regular rate and rhythm. LUNGS: Clear anteriorly. ABDOMEN: Soft. EXTREMITIES: With trace edema. NEUROLOGIC: Cranial nerves II through XII are intact. She is oriented x3. LABORATORY DATA: White blood cell count 9.5, hemoglobin and hematocrit 8.7 and 28.5, and platelets of 244. Sodium 144, potassium 3.7, chloride 100, CO2 of 37, BUN and creatinine 24 and 0.69 with a GFR of 81, magnesium of 2.1, and phosphorus of 2.3. ASSESSMENT AND PLAN: This is an 83-year-old female patient, status post myocardial infarction with resultant coronary artery bypass graft, postop day #5. 1. Status post coronary artery bypass graft. Plan per Cardiovascular Surgery. She continues to do better. Dr. Constantino is hoping that she can be discharged home in a day or two since she is walking better and feeling stronger and mentation is clearing up. 2. Paroxysmal atrial fibrillation has remained in normal sinus rhythm. Plan per Cardiology and Electrophysiology considering change from Multaq to amiodarone. She converts back to atrial fibrillation. 3. Persistent left pleural effusion. Appreciate Dr. Lazo. Hopefully, we will just need outpatient followup. 4. Deconditioning and weakness. Continue physical therapy. We will arrange for home PT if she is able to be discharged home. 5. Mental status change seems to be clearing. Possible prolonged postanesthesia effect. No signs of cerebrovascular accident. No signs of depression. Job ID: [id number]
[2018-05-18] MEDS ORDERED: Potassium Chloride 20 MEQ TAB PO SCH (11:30)
--- NOTE | 2018-05-18 11:45 | PRG ---
DATE OF SERVICE: 05/18/2018 SERVICE: Pulmonary Medicine. INTERVAL HISTORY: The patient is doing outstanding from respiratory standpoint. Breathing comfortably. No chest pain, fevers, or chills. She had multiple bowel movements yesterday. She is tolerating p.o. and did not have any additional episodes of nausea or vomiting. She is able to walk 6 times yesterday and plans on doing the same day. Her mentation continues to improve. PHYSICAL EXAMINATION: VITAL SIGNS: Afebrile. Pulse 74, blood pressure 179/79, respirations 18, saturation 100% on 2 L nasal cannula. GENERAL: The patient is awake and alert, in no apparent distress. LUNGS: Excellent air entry. Minimal dependent crackles are noted. No prolonged expiratory phase or wheezing is appreciated. HEART: Normal rate, regular. ABDOMEN: Soft, nontender, and nondistended. Bowel sounds are positive. MUSCULOSKELETAL: No cyanosis or clubbing. No pitting in the bilateral lower extremities. NEUROLOGIC: Grossly nonfocal. LABORATORY DATA: WBC 9.5, hemoglobin 8.7, platelets 244,000. Basic metabolic profile is essentially unremarkable except for an uptrending bicarb of 37. BUN 24, creatinine 0.96. Magnesium and phosphorous fall within the normal limits. Urinalysis is unremarkable. Cultures negative to date. ASSESSMENT: 1. Acute hypoxic respiratory failure. 2. Coronary artery disease, status post coronary artery bypass graft, postop day #5. 3. Atrial fibrillation. 4. Chronic diastolic heart failure. 5. History of carcinoid, status post left lower lobectomy. 6. Delirium, improving. 7. Ileus, resolved. DISCUSSION AND PLAN: I once again replaced the potassium. The patient is doing absolutely fantastic from a mentation standpoint. We will continue our mobility efforts through time. From a respiratory perspective, she is stable for transition out of the hospital. At this point, she has no further requirements for Inpatient Pulmonary or Critical Care opinion, and I will sign off. Please call with additional questions or concerns through time. Job ID: [id number]
--- NOTE | 2018-05-18 13:33 | PDOC.CTH ---
Cardiology Progress Note - Subjective EP PROGRESS NOTE: 05/18/18 Seen as follow up for AF. Rhythm stable overnight. No heart racing, palpitations, chest pain, dizziness, or passing out. She is having post operative pain. Personal sitter bedside. Patient is agitated and demanding release from hospital today. - Objective Vital Signs Temp Pulse Resp BP BP BP Pulse Ox 05/18/18 10:35 169/74 H 05/18/18 08:36 74 179/79 H 05/18/18 08:30 97.7 F 74 18 179/79 H 100 05/18/18 04:00 97.9 F 63 20 177/79 H 99 Weight 132 lb 9.6 oz 05/17/18 05/18/18 05/19/18 06:59 06:59 06:59 Intake Total 780 762 Output Total 920 Balance -140 762 - Physical Examination General/Neuro: other: (oriented to person and place, not situation or date) Neck: carotid US brisk, no JVD present Lungs: CTA, unlabored respirations Heart: PMI normal, RRR Abdomen: NT/ND, soft - Telemetry Telemetry Rhythm: SR - Labs Result Diagrams: 05/18/18 06:50 05/18/18 06:50 Troponin/CKMB CK-MB (CK-2) 17.8 ng/mL (0-6.6) H* 05/11/18 14:26 Troponin I 2.088 ng/mL (< 0.028) H* 05/11/18 14:26 - Assessment/Plan 1. CAD -s/p C on 05/11/2018 -S/P CABG with MAXIMUS ligation. 2. HTN -Per cardiology 3. Paroxysmal atrial fibrillation - remains in SR over HS with Multaq and ASA. --> AF on 05/18/18 ~ 1330 while agitated. - may require amiodarone instead of multaq during perioperative time only if multaq isn't strong enough to hold NSR 4. Chronic Diastolic HF - stable - per cardiology 5. CHADS2-VASC >/= 8 ( age-2, gender-1, HTN-1, vascular disease-1, prior CVA-2, HF-1) -OAC is indicated. MAXIMUS ligated with CABG but needs WAYNE to verify adequate ligation before she can go without anticoagulation 6. Delirium/confusion -agitation and hostile behavior over HS that continues into today. Paranoid she is being poisoned. Refusing PO medications. No recent narcs. -Continue multaq which is holding her in NSR until ~ 1330 today. -Recommend lovenox vs eliquis 2.5mg PO BID until WAYNE can be done to verify MAXIMUS is adequately closed. WAYNE can be performed prior to DC if needed. Spoke to [facility], ok to resume OAC after he removed temp PM wires. There was some concern for hx of GIB/ intolerance to OAC. Spoke to cardiology who has followed pt prior to admission, no mention of OAC intolerance. No documentation in hospital records. The most definitive way to proceed would be to do WAYNE to eval MAXIMUS but right now patient is quite agitated/confused and unable to consent at this time. Encourage removal of TPM wires once feasible so AC options are available. -If AF RVR sustains she may need to resume dilt gtt or additional PO rate control if she is cooperative with medications.
[2018-05-18] MEDS: ALPRAZolam 0.25 MG TAB PO PRN (13:35)
--- NOTE | 2018-05-18 13:41 | PDOC.CTH ---
Cardiology Progress Note - Subjective The pt seen and examined. No overnight events. No cardiac complaints. - Objective Vital Signs Temp Pulse Resp BP BP BP Pulse Ox 05/18/18 10:35 169/74 H 05/18/18 08:36 74 179/79 H 05/18/18 08:30 97.7 F 74 18 179/79 H 100 05/18/18 04:00 97.9 F 63 20 177/79 H 99 Weight 132 lb 9.6 oz 05/17/18 05/18/18 05/19/18 06:59 06:59 06:59 Intake Total 780 762 Output Total 920 Balance -140 762 - Physical Examination General/Neuro: other: (alerted to self) Lungs: other: (diminished at bases) Heart: RRR Abdomen: soft Extremities: other: (No edema) - Telemetry Telemetry Rhythm: SR, PACs, HR 70s - Labs Result Diagrams: 05/18/18 06:50 05/18/18 06:50 Troponin/CKMB CK-MB (CK-2) 17.8 ng/mL (0-6.6) H* 05/11/18 14:26 Troponin I 2.088 ng/mL (< 0.028) H* 05/11/18 14:26 - Assessment/Plan 1. 3VCAD s/p CABG x 5 and MAXIMUS ligation 05/13/18 - stable 2. HTN - start Coreg 6.25mg BID from today; on Clonidin PRN for SBP > 160 3. Parox AF - Converted back to SR on 05/16/2018; On Multaq and ASA; Hx of MAXIMUS ligation 4. Chronic Diastolic HF - start Coreg 6.25mg BID; On Lisinopril 5. Hx of CVA 6. Anxiety - On Xanax PRN 7. Hx of lobectomy MAR reviewed Pt. seen and eval. by me. I agree with the A/P by the AUTOMOTIVE ALIGNMENT SPECIALIST No complaints. Chest clear. RRR. She is getting more angry and depressed that she is still in the hospital. She is back in Atrial fib this pm on examination. She also has some diarhea. I have explained to her that she needs to be in the hospital until she is stable to transfer to rehab. Review of Systems - Review of Systems Constitutional: reports: no symptoms reported EENTM: reports: no symptoms reported Respiratory: reports: no symptoms reported Cardiac (ROS): reports: no symptoms reported ABD/GI: reports: no symptoms reported : reports: no symptoms reported Musculoskeletal: reports: no symptoms reported
[2018-05-18] MEDS ORDERED: Carvedilol 6.25 MG TAB PO SCH (14:00)
[2018-05-18] MEDS ORDERED: Metoprolol Tartrate 25 MG TAB PO SCH ×2 (14:30→21:00)
[2018-05-18] MEDS ORDERED: Metoprolol Tartrate 5 MG/5 ML VIAL IVP PRN (17:42)
[2018-05-18] MEDS ORDERED: Sodium Chloride 0.9% 10 ML ONE (17:46)
[2018-05-18] MEDS: Atorvastatin Calcium 20 MG TAB PO SCH (21:17)
[2018-05-18] MEDS: Carvedilol 6.25 MG TAB PO SCH (21:17)
[2018-05-18] MEDS ORDERED: Diphenoxylate HCl/Atropine Tablet PO PRN (22:36)
[2018-05-19 06:55] LABS: #Eosinphils 0.2 thou/uL (0.0-0.7); #Lymphocytes 2.4 thou/uL (1.20-3.40); #Monocytes 1.1 thou/uL (0.11-0.59); #Neutrophils 6.9 thou/uL (1.40-6.50); %Basophils 0.3 % (0.0-1.0); %Lymphocytes 22.6 % (21.0-51.0); %Monocytes 10.4 % (0.0-10.0); %Neutrophils 64.7 % (42.0-75.0); Hemoglobin 8.9 g/dL (12.0-16.0); Mean Corpuscular HGB CONC 30.4 g/dL (32.0-36.0); Mean Corpuscular Hemoglobin 21.3 pg (27.0-31.0); Mean Platelet Volume 8.4 fL (7.4-10.4); Platelet Count 286 thou/uL (130-400); Red Blood Cell (RBC) Count 4.15 mill/uL (4.20-5.40); White Blood Cell (WBC) Count 10.7 thou/uL (4.8-10.8)
[2018-05-19 07:05] LABS: Phosphorus 2.4 mg/dL (2.3-4.7)
[2018-05-19 07:07] LABS: Anion Gap 9 mmol/L (10-20); BUN (Urea Nitrogen) 20 mg/dL (9.8-20.1); Calc. Creatinine Clearance 55 mL/min (70-130); Calcium 8.8 mg/dL (7.8-10.44); Carbon Dioxide 36 mmol/L (23-31); Chloride 98 mmol/L (98-107); Estimated GFR-MDRD 76; Glucose 128 mg/dL (83-110); Potassium 4.5 mmol/L (3.5-5.1); Sodium 138 mmol/L (136-145)
--- NOTE | 2018-05-19 08:40 | PRG ---
DATE OF SERVICE: 05/19/2018 SUBJECTIVE: The patient states that she is feeling well. She had some loose stool yesterday, but improved. Her last loose stool was about 5:30 yesterday evening. Apparently, a sample was sent for Clostridium difficile and was lost en route to the lab. The patient denies chest pain. Denies shortness of breath. She states she did not feel when she went into atrial fibrillation yesterday and converted back to normal sinus. Breathing is better. Denies shortness of breath. Ambulating in the lim without difficulty. Still requiring oxygen as needed, but does have some at home. The patient's family is very upset about episode yesterday when she was wanting to go home and was not treated well per them. By the staff, they were very disappointed, wanting to go home as soon as safely possible. OBJECTIVE: VITAL SIGNS: Temperature 98.0, pulse is 60 and regular, respirations 14, blood pressure 143/64, and pulse ox is 92% on 2 L nasal cannula. GENERAL: She is awake and alert, in no acute distress. Speech is clear and fluid. She is oriented x3. HEENT: Mucosa is moist. NECK: Supple. HEART: Regular rate and rhythm. LUNGS: Clear anteriorly. No wheezes, rales, or rhonchi. ABDOMEN: Soft. EXTREMITIES: With minimal edema. Some tenderness at the surgical site on the left leg. LABORATORY DATA: White blood cell count 10,700 and hemoglobin and hematocrit 8.9 and 29.1 with microcytic indices. Sodium 138, potassium of 4.5, chloride 98, CO2 of 36, BUN and creatinine 20 and 0.73 with a GFR of 76, serum glucose of 128, calcium of 8.8, and magnesium of 2.0. ASSESSMENT AND PLAN: This is an 83-year-old female patient, status post myocardial infarction with resultant 5-vessel bypass, postop day #6. 1. Status post coronary artery bypass graft. Plan per Cardiovascular Surgery. She is doing much better. Appears to be clearing from anesthesia. Mentation is clearing, and she is getting stronger. 2. Paroxysmal atrial fibrillation with episode of atrial fibrillation, lasting a few hours yesterday. Plan per Cardiology and Electrophysiology, possible switching to amiodarone due to continued atrial fibrillation. Possible plan for WAYNE to evaluate left atrial appendage ligation. I had a discussion with the patient and family about anticoagulation. 3. Persistent left pleural effusion, seems to be stable. Follow up with Dr. Lazo as an outpatient. 4. Deconditioning and weakness. It continues to improve. If she is able to go home, we will be able to arrange home PT. 5. Mental status change. It continues to improve. The patient and family feel like if she goes home, she will improve much better. 6. Disposition: Hopefully home once okay with Cardiology and Electrophysiology. Job ID: [id number]
[2018-05-19] MEDS: Famotidine 20 MG TAB PO SCH ×2 (08:46→21:06)
[2018-05-19] MEDS: Dronedarone HCl 400 MG TAB PO SCH ×2 (08:46→18:53)
[2018-05-19] MEDS: Aspirin Chewable 81 MG TAB PO SCH (08:46)
[2018-05-19] MEDS: Potassium Chloride 10 MEQ TAB PO SCH (08:47)
[2018-05-19] MEDS: Lisinopril 5 MG TAB PO SCH (08:47)
[2018-05-19] MEDS: Carvedilol 6.25 MG TAB PO SCH (08:48)
--- NOTE | 2018-05-19 11:53 | PDOC.CTH ---
Cardiology Progress Note - Subjective EP PROGRESS NOTE: 05/19/18 Seen as follow up for AF. Rhythm stable overnight, converted back to SR yesterday PM. No heart racing, palpitations, chest pain, dizziness, or passing out. She is having minimal post operative pain. Family bedside Patient remains frustrated and somewhat paranoid. - Objective Vital Signs Temp Pulse Resp BP BP Pulse Ox 05/19/18 08:48 139/66 05/19/18 08:47 60 139/66 05/19/18 04:00 98.1 F 60 14 143/64 H 92 L Weight 132 lb 9.6 oz 05/18/18 05/19/18 05/20/18 06:59 06:59 06:59 Intake Total 762 850 Balance 762 850 - Physical Examination General/Neuro: NAD, other: (A/O x person, place) Neck: carotid US brisk, no JVD present Lungs: CTA, unlabored respirations Heart: PMI normal, RRR Abdomen: NT/ND, soft - Telemetry Telemetry Rhythm: SR - Labs Result Diagrams: 05/19/18 06:32 05/19/18 06:32 Troponin/CKMB CK-MB (CK-2) 17.8 ng/mL (0-6.6) H* 05/11/18 14:26 Troponin I 2.088 ng/mL (< 0.028) H* 05/11/18 14:26 - Assessment/Plan 1. CAD -s/p C on 05/11/2018 -S/P CABG with MAXIMUS ligation. 2. HTN -Per cardiology 3. Paroxysmal atrial fibrillation - remains in SR over HS with Multaq and ASA. --> AF on 05/18/18 ~ 1330 while agitated--> SR after IV lopressor given -continue multaq 4. Chronic Diastolic HF - stable - per cardiology 5. CHADS2-VASC >/= 8 ( age-2, gender-1, HTN-1, vascular disease-1, prior CVA-2, HF-1) -OAC is indicated. MAXIMUS ligated with CABG but needs WAYNE to verify adequate ligation before she can go without anticoagulation -Starting Eliquis 2.5mg PO BID this AM. ( low dose for age >80 and weight < 133lbs) 6. Delirium/confusion -Continue multaq -Spoke with family about doing WAYNE to check MAXIMUS during this stay vs OP. They prefer starting OAC now to expedite her return home and will follow up for WAYNE at a later date as an OP. Spoke to Dr. Mooney about rhythm issues/ recommendations this AM.
[2018-05-19] MEDS ORDERED: Apixaban 2.5 MG TAB PO SCH (12:00)
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
[2018-05-19] MEDS ORDERED: ePHEDrine 50 MG/ML VIAL ONE (15:02)
[2018-05-19] MEDS ORDERED: PROPOFOL 200 MG/20 ML VIAL ONE (15:02)
[2018-05-19] MEDS ORDERED: PROPOFOL 20 ML ONE (15:09)
[2018-05-19] MEDS ORDERED: ePHEDrine/0.9% NaCl/PF SYRINGE 50 mg/10 ml ONE (15:21)
[2018-05-19] MEDS: Carvedilol 3.125 MG TAB PO SCH (18:53)
[2018-05-19] MEDS: Apixaban 2.5 MG TAB PO SCH (21:06)
[2018-05-19] MEDS: Atorvastatin Calcium 20 MG TAB PO SCH (21:06)
[2018-05-19] MEDS: Lisinopril 10 MG TAB PO SCH (21:07)
[2018-05-19] MEDS: ALPRAZolam 0.25 MG TAB PO PRN (23:08)
[2018-05-20 05:08] LABS: #Basophils 0.1 thou/uL (0.0-0.2); #Eosinphils 0.3 thou/uL (0.0-0.7); #Lymphocytes 2.2 thou/uL (1.20-3.40); #Monocytes 1.1 thou/uL (0.11-0.59); #Neutrophils 5.9 thou/uL (1.40-6.50); %Basophils 0.5 % (0.0-1.0); %Eosinophils 2.7 % (0.0-10.0); %Lymphocytes 23.2 % (21.0-51.0); %Monocytes 11.2 % (0.0-10.0); %Neutrophils 62.4 % (42.0-75.0); Basophilic Stippling SLIGHT = 1-2 cells (100X) (None Seen); Hemoglobin 8.3 g/dL (12.0-16.0); Hypochromia MODERATE=16-30 cells (100X) (0-5/hpf); MDiff Complete? YES; Mean Corpuscular HGB CONC 31.1 g/dL (32.0-36.0); Mean Corpuscular Hemoglobin 21.7 pg (27.0-31.0); Mean Corpuscular Volume 69.8 fL (78.0-98.0); Mean Platelet Volume 8.5 fL (7.4-10.4); Platelet Count 267 thou/uL (130-400); Platelet Morphology Comment Appears Adequate; RBC Distribution Width 18.9 % (11.5-14.5); Red Blood Cell (RBC) Count 3.83 mill/uL (4.20-5.40); White Blood Cell (WBC) Count 9.5 thou/uL (4.8-10.8)
[2018-05-20 05:09] LABS: Anion Gap 8 mmol/L (10-20); BUN (Urea Nitrogen) 15 mg/dL (9.8-20.1); Calc. Creatinine Clearance 62 mL/min (70-130); Calcium 8.7 mg/dL (7.8-10.44); Carbon Dioxide 36 mmol/L (23-31); Chloride 99 mmol/L (98-107); Estimated GFR-MDRD 87; Glucose 97 mg/dL (83-110); Potassium 3.9 mmol/L (3.5-5.1); Sodium 139 mmol/L (136-145)
[2018-05-20] MEDS: Aspirin Chewable 81 MG TAB PO SCH (08:30)
[2018-05-20] MEDS: Apixaban 2.5 MG TAB PO SCH (08:30)
[2018-05-20] MEDS: Potassium Chloride 10 MEQ TAB PO SCH (08:31)
[2018-05-20] MEDS: Carvedilol 3.125 MG TAB PO SCH (08:31)
[2018-05-20] MEDS: Famotidine 20 MG TAB PO SCH (08:31)
[2018-05-20] MEDS: Lisinopril 10 MG TAB PO SCH (08:31)
[2018-05-20] MEDS: Dronedarone HCl 400 MG TAB PO SCH (08:31)
[2018-05-20 08:36] VITALS: TEMP 97.8
[2018-05-20] MEDS ORDERED: Nystatin Cream 30 GM TUBE TOP SCH (09:00)
--- NOTE | 2018-05-20 13:38 | PDOC.CTH ---
Cardiology Progress Note - Subjective The pt seen and examined. No overnight events. No cardiac complaints. - Objective Vital Signs Temp Pulse Resp BP BP BP Pulse Ox 05/20/18 08:31 143/66 H 05/20/18 08:00 97.8 F 66 16 167/71 H 99 05/20/18 07:11 97 05/20/18 04:00 98.1 F 58 L 20 134/99 H 92 L Weight 135 lb 1.6 oz 05/19/18 05/20/18 05/21/18 06:59 06:59 06:59 Intake Total 850 600 Output Total 100 Balance 850 500 - Physical Examination General/Neuro: alert & oriented x3 Neck: no JVD present Lungs: other: (diminished at bases) Heart: RRR Extremities: other: (no edema) - Telemetry Telemetry Rhythm: SR - Labs Result Diagrams: 05/20/18 04:32 05/20/18 04:32 Troponin/CKMB CK-MB (CK-2) 17.8 ng/mL (0-6.6) H* 05/11/18 14:26 Troponin I 2.088 ng/mL (< 0.028) H* 05/11/18 14:26 - Assessment/Plan 1. 3VCAD s/p CABG x 5 and MAXIMUS ligation 05/13/18 - stable 2. HTN - Decrease Coreg from 6.25mg to 3.125mg BID and increase Lisinopril from 5mg to 10mg BID for Bradycardia; on Clonidin PRN for SBP > 160 3. Parox AF - Intermittent Afib; Converted back to SR on 05/19/2018; SB now; On Multaq and ASA; Decrease Coreg to 3.125mg BID for bradycardia;WAYNE on 05/19/2018 showed fibrin in the Right atrium and will suggest she continue on the Eliquis for at least a month. 4. Chronic Diastolic HF - Stable; on Bblocker and HARVEY 5. Hx of CVA 6. Anxiety - On Xanax PRN 7. Hx of lobectomy MAR reviewed * From Cardiac standpoint, the pt is stable to d/c home. The pt will f/u with Dr Rodriguez' office with 2 wks.. Pt. seen and eval. by me. I agree with the A/P by the ENROLLMENT ADVISOR. Chest clear. RRR. Review of Systems - Review of Systems Constitutional: reports: weakness EENTM: reports: no symptoms reported Respiratory: reports: no symptoms reported Cardiac (ROS): reports: no symptoms reported
--- NOTE | 2018-05-20 13:54 | PDOC.CTH ---
Cardiology Progress Note - Subjective EP PROGRESS NOTE: 05/20/18 Seen as follow up for AF. Rhythm stable overnight, converted back to SR 4/ PM. No heart racing, palpitations, chest pain, dizziness, or passing out. She is having minimal post operative pain. Family bedside. DC plans to go home today. - Objective Vital Signs Temp Pulse Resp BP BP BP Pulse Ox 05/20/18 08:31 143/66 H 05/20/18 08:00 97.8 F 66 16 167/71 H 99 05/20/18 07:11 97 05/20/18 04:00 98.1 F 58 L 20 134/99 H 92 L Weight 135 lb 1.6 oz 05/19/18 05/20/18 05/21/18 06:59 06:59 06:59 Intake Total 850 600 Output Total 100 Balance 850 500 - Physical Examination General/Neuro: alert & oriented x3, NAD Neck: carotid US brisk, no JVD present Lungs: CTA, unlabored respirations Heart: PMI normal, RRR Abdomen: NT/ND, soft - Telemetry Telemetry Rhythm: SR - Labs Result Diagrams: 05/20/18 04:32 05/20/18 04:32 Troponin/CKMB CK-MB (CK-2) 17.8 ng/mL (0-6.6) H* 05/11/18 14:26 Troponin I 2.088 ng/mL (< 0.028) H* 05/11/18 14:26 - Assessment/Plan 1. CAD -s/p LHC on 05/11/2018 -S/P CABG with MAXIMUS ligation. 2. HTN -Per cardiology 3. Paroxysmal atrial fibrillation - remains in SR over HS with Multaq and ASA. --> AF on 05/18/18 ~ 1330 while agitated--> SR after IV lopressor given -continue multaq 4. Chronic Diastolic HF - stable - per cardiology 5. CHADS2-VASC >/= 8 ( age-2, gender-1, HTN-1, vascular disease-1, prior CVA-2, HF-1) -OAC is indicated. MAXIMUS ligated with CABG but needs WAYNE to verify adequate ligation before she can go without anticoagulation -Starting Eliquis 2.5mg PO BID this AM. ( low dose for age >80 and weight < 133lbs). H/H stable on Eliquis x 24 hours. -Continue multaq and eliquis upon DC. Will see back in clinic in 6 weeks for AFib and to discuss WAYNE before coming off OAC.
[2018-05-20 15:02] VITALS: BP 183/74
--- NOTE | 2018-05-22 10:11 | EKG ---
Test Reason : Blood Pressure : / mmHG Vent. Rate : 153 BPM Atrial Rate : 115 BPM P-R Int : 000 ms QRS Dur : 084 ms QT Int : 314 ms P-R-T Axes : 000 009 161 degrees QTc Int : 501 ms Atrial fibrillation with rapid ventricular response Marked ST abnormality, possible inferolateral subendocardial injury Abnormal ECG Confirmed by LEVI DOBBINS ([id number]), video effects editor PILAR FUNEZ ([id number]) on 05/22/2018 10:10:59 AM Referred By: Confirmed By:LEVI DOBBINS
--- NOTE | 2018-05-22 10:11 | EKG ---
Test Reason : Blood Pressure : / mmHG Vent. Rate : 057 BPM Atrial Rate : 057 BPM P-R Int : 132 ms QRS Dur : 092 ms QT Int : 452 ms P-R-T Axes : 034 003 050 degrees QTc Int : 439 ms Sinus bradycardia Possible Anterior infarct , age undetermined Abnormal ECG #2 Confirmed by LEVI DOBBINS ([id number]), editor in chief newspaper PILAR FUNEZ ([id number]) on 05/22/2018 10:11:10 AM Referred By: Confirmed By:LEVI DOBBINS
== END 2018-05-20 13:48 | disposition home health service (06) | DRG 233 ==
LOC: ERS 03:23 → 2SW 05:05 → OBSVTOIN 08:11 → 2NO 05-12 11:34 → CCU 05-13 07:22 → 2NO 05-14 18:00
PROVIDERS: ADMIT Family Medicine; ATTEND Family Medicine
PROC: 4A023N7 Measurement of Cardiac Sampling and Pressure, Left Heart, Percutaneous Approach (ICD-10-PCS; 2018-05-11)
PROC: B2111ZZ Fluoroscopy of Multiple Coronary Arteries using Low Osmolar Contrast (ICD-10-PCS; 2018-05-11)
PROC: 0213099 Bypass Coronary Artery, Four or More Arteries from Left Internal Mammary with Autologous Venous Tissue, Open Approach (ICD-10-PCS; principal; 2018-05-13)
PROC: 06BQ0ZZ Excision of Left Saphenous Vein, Open Approach (ICD-10-PCS; 2018-05-13)
PROC: 02HV33Z Insertion of Infusion Device into Superior Vena Cava, Percutaneous Approach (ICD-10-PCS; 2018-05-13)
PROC: 5A1221Z Performance of Cardiac Output, Continuous (ICD-10-PCS; 2018-05-13)
PROC: 02L70ZK Occlusion of Left Atrial Appendage, Open Approach (ICD-10-PCS; 2018-05-13)
PROC: B246ZZ4 Ultrasonography of Right and Left Heart, Transesophageal (ICD-10-PCS; 2018-05-19)
DX: I25.10 Atherosclerotic heart disease of native coronary artery without angina pectoris (principal); J96.01 Acute respiratory failure with hypoxia; I21.3 ST elevation (STEMI) myocardial infarction of unspecified site; I50.32 Chronic diastolic (congestive) heart failure; K56.7 Ileus, unspecified; E87.3 Alkalosis; I11.0 Hypertensive heart disease with heart failure; I48.0 Paroxysmal atrial fibrillation; F41.9 Anxiety disorder, unspecified; R91.8 Other nonspecific abnormal finding of lung field; Z86.73 Personal history of transient ischemic attack (TIA), and cerebral infarction without residual deficits; Z87.01 Personal history of pneumonia (recurrent); Z91.19 Patient's noncompliance with other medical treatment and regimen; Z85.110 Personal history of malignant carcinoid tumor of bronchus and lung; Z98.890 Other specified postprocedural states; R41.0 Disorientation, unspecified; Z79.899 Other long term (current) drug therapy; Z79.52 Long term (current) use of systemic steroids; Z79.82 Long term (current) use of aspirin
CPT/HCPCS: 36415; 36416; 36430; 71045; 80048; 80053; 81001; 82553; 82805; 83735; 83880; 84100; 84484; 85025; 85610; 85730; 86850; 86900; 86901; 87086; 87324; 87449; 93005; 93010; 93312; 93458; 93798; 94002; 96365; 96366; 96368; 96376; 99152; 99153; C1769; J0670; J0690; J1100; J1160; J1642; J1644; J1815; J1885; J1940; J2001; J2150; J2250; J2270; J2405; J2440; J2704; J2720; J3010; J3370; J3475; J3480; J3490; J7050; P9016; P9045; Q9967; S0017; S0028

== ENCOUNTER 2018-06-18 12:50 | Outpatient (CLI) | payer MEDICARE ==
--- NOTE | 2018-06-18 13:13 | RAD ---
EXAM: Chest PA and lateral: HISTORY: Dyspnea COMPARISON: Portable exam of 05/17/2018 FINDINGS: Cardiomegaly with postop sternotomy changes. Mild vascular and interstitial engorgement. Small bilate ral effusions. Calcified nodule in the right midlung again noted. No significant change from prior exam. Osseous structures are unremarkable. IMPRESSION: Cardiomegaly with mild vascular and interstitial congestion and small bilateral effusions, stable fro m prior exam.
== END 2018-06-18 12:51 | disposition home or self-care (01) ==
LOC: RAD 12:50
PROVIDERS: ATTEND Internal Medicine Pulmonary Disease
DX: R06.00 Dyspnea, unspecified (principal); I51.7 Cardiomegaly; J90 Pleural effusion, not elsewhere classified
CPT/HCPCS: 71046

== ENCOUNTER 2018-11-23 12:02 | Outpatient (CLI) | payer MEDICARE ==
--- NOTE | 2018-11-23 15:00 | CT ---
CT CHEST WITHOUT CONTRAST CLINICAL INDICATION: Pulmonary nodules and pleural effusion. COMPARISON: CTA chest on 04/27/2018. FINDINGS: Aorta: Vascular calcifications are seen in the thoracic aorta as well as involving the coronary arter ies. Evidence of CABG is again seen. Lungs: The left pleural effusion and adjacent consolidation has resolved which were also seen on the prior exam. Largest lobulated pulmonary nodule in the left lower lobe measures 11 mm x 11 mm. Next largest pulmonary nodule is seen in the right middle lobe medially which measures 8 mm and stable in size. The remaining multiple scattered pulmonary nodules throughout the lungs bilaterally are smaller in size.. Large calcified granuloma is again seen in the superior segment of the right lower lobe. Few groundgl ass opacities are seen in a perihilar location bilaterally but slightly greater on the right which is nonspecific. No new area of consolidation or pleural fluid is seen. Mediastinum: There is a prominent lymph node in the subcarinal region measuring 1.1 cm which may actu ally represent conglomeration of lymph nodes. No additional obvious lymph nodes are seen by CT size criteria on this nonenhanced CT exam. A large calcified right hilar lymph node is again noted. Thyroid gland: A hypodense nodule is again seen in the left lobe of the thyroid gland Osseous structures: Degenerative changes are seen in the spine. No suspicious lytic or sclerotic osse ous lesions are identified. Chest wall: No abnormality visualized. Upper abdomen: Vascular calcifications are seen in the abdominal aorta. There is a small hiatal herni a present. Multiple gallbladder calculi are visualized with mild distention of the visualized gallbladder. There is colonic diverticulosis. IMPRESSION: 1. Innumerable pulmonary nodules seen scattered throughout the lungs bilaterally again worrisome for metastatic disease and overall unchanged from prior exam. Largest pulmonary nodule in the left lower lobe measures 11 mm. 2. Resolution of left pleural effusion and consolidation left lung base. 3. Minimal groundglass densities in a perihilar location which is overall nonspecific but could be re lated to volume loss or alveolitis. 4. Dense vascular calcifications. 5. Cholelithiasis with mild distention of visualized gallbladder.
== END 2018-11-23 12:03 | disposition home or self-care (01) ==
LOC: BICCT 12:02
PROVIDERS: ATTEND Internal Medicine
DX: R91.8 Other nonspecific abnormal finding of lung field (principal); J90 Pleural effusion, not elsewhere classified; R91.1 Solitary pulmonary nodule; I70.0 Atherosclerosis of aorta; J98.4 Other disorders of lung; K80.20 Calculus of gallbladder without cholecystitis without obstruction; K82.8 Other specified diseases of gallbladder
CPT/HCPCS: 71250

== ENCOUNTER 2019-05-23 16:04 | Emergency (ER) | payer MEDICARE ==
--- NOTE | 2019-05-23 17:33 | RAD ---
TWO VIEWS LEFT HIP: Date: 05-23-2019 Provided Clinical History: Fall. FINDINGS: Comparison 03-25-18. Post-operative changes of left hip arthroplasty are demonstrated, without evidence for hardware loose yuan or migration. No evidence for fracture or other acute osseous abnormality. If there is persisten t clinical concern, conservative management and follow up imaging are advised. IMPRESSION: As above. POS: [place]
--- NOTE | 2019-05-23 17:34 | RAD ---
PELVIC RADIOGRAPH: Date: 05-23-2019 Provided Clinical History: Fall. FINDINGS: Post-operative changes of left hip arthroplasty are demonstrated without evidence for hardware compli cation. No evidence for fracture or other acute osseous abnormality. If there is persistent clinical concern, conservative management and follow up imaging are advised. IMPRESSION: As above. POS: [place]
[2019-05-23 17:51] LABS: #Eosinphils 0.1 thou/uL (0.0-0.7); #Lymphocytes 1.7 thou/uL (1.20-3.40); #Monocytes 0.9 thou/uL (0.11-0.59); #Neutrophils 6.4 thou/uL (1.40-6.50); %Basophils 0.1 % (0.0-1.0); %Eosinophils 1.1 % (0.0-10.0); %Lymphocytes 18.3 % (21.0-51.0); %Monocytes 10.1 % (0.0-10.0); %Neutrophils 70.4 % (42.0-75.0); Hemoglobin 12.6 g/dL (12.0-16.0); Mean Corpuscular HGB CONC 31.2 g/dL (32.0-36.0); Mean Corpuscular Hemoglobin 20.7 pg (27.0-31.0); Mean Corpuscular Volume 66.4 fL (78.0-98.0); Mean Platelet Volume 9.6 fL (7.4-10.4); Platelet Count 218 thou/uL (130-400); RBC Distribution Width 14.2 % (11.5-14.5); Red Blood Cell (RBC) Count 6.08 mill/uL (4.20-5.40); White Blood Cell (WBC) Count 9.1 thou/uL (4.8-10.8)
[2019-05-23] MEDS ORDERED: Acetaminophen 500 MG TAB ONE (17:53)
[2019-05-23] MEDS ORDERED: Ketorolac Tromethamine 30 MG/ML VIAL ONE (17:53)
[2019-05-23 18:10] LABS: ALT (SGPT) 13 U/L (8-55); AST (SGOT) 18 U/L (5-34); Albumin 3.9 g/dL (3.4-4.8); Alkaline Phosphatase 72 U/L (40-110); Anion Gap 9 mmol/L (10-20); BUN (Urea Nitrogen) 15 mg/dL (9.8-20.1); Bilirubin, Total 0.6 mg/dL (0.2-1.2); Calc. Creatinine Clearance 0 mL/min (70-130); Carbon Dioxide 28 mmol/L (23-31); Chloride 107 mmol/L (98-107); Estimated GFR-MDRD 81; Globulin 3.1 g/dL (2.4-3.5); Glucose 123 mg/dL (83-110); Hypochromia SLIGHT = 6-15 cells (100X) (0-5/hpf); MDiff Complete? YES; Microcytosis MODERATE=15-30 cells (100X) (0-5/hpf); Ovalocytes SLIGHT = 2-5 cells (100X) (0-1/hpf); Platelet Morphology Comment Appears Adequate; Polychromasia SLIGHT = 2-3 cells (100X) (0-2/hpf); Potassium 3.8 mmol/L (3.5-5.1); Sodium 140 mmol/L (136-145); Target Cells SLIGHT = 2-5 cells (100X) (0-1/hpf); Tear Drops SLIGHT = 2-5 cells (100X) (0-1/hpf)
== END 2019-05-23 19:16 | disposition home or self-care (01) ==
LOC: ERS 16:04
DX: M25.552 Pain in left hip (principal); I48.91 Unspecified atrial fibrillation; I10 Essential (primary) hypertension; Z79.899 Other long term (current) drug therapy; W18.30XA Fall on same level, unspecified, initial encounter
CPT/HCPCS: 36415; 72170; 80053; 85025; 96372; J1885

== ENCOUNTER 2019-10-17 13:35 | Emergency (ER) | payer MEDICARE ==
[2019-10-17 14:02] LABS: #Eosinphils 0.1 thou/uL (0.0-0.7); #Lymphocytes 1.8 thou/uL (1.20-3.40); #Monocytes 0.7 thou/uL (0.11-0.59); #Neutrophils 3.4 thou/uL (1.40-6.50); %Basophils 0.4 % (0.0-1.0); %Eosinophils 1.2 % (0.0-10.0); %Lymphocytes 29.8 % (21.0-51.0); %Monocytes 11.6 % (0.0-10.0); Hemoglobin 11.4 g/dL (12.0-16.0); Mean Corpuscular HGB CONC 30.8 g/dL (32.0-36.0); Mean Corpuscular Hemoglobin 20.3 pg (27.0-31.0); Mean Corpuscular Volume 66.1 fL (78.0-98.0); Mean Platelet Volume 9.5 fL (7.4-10.4); Platelet Count 235 thou/uL (130-400); Red Blood Cell (RBC) Count 5.62 mill/uL (4.20-5.40); White Blood Cell (WBC) Count 5.9 thou/uL (4.8-10.8)
--- NOTE | 2019-10-17 14:19 | RAD ---
XR Chest 1 View Portable HISTORY: Palpitations, hypertension COMPARISON: 06/18/2018 FINDINGS: The heart is enlarged. The aorta is tortuous. Changes of median sternotomy are again seen. A calcified granuloma in the right lung is again noted. Chronic changes again noted. No lobar consolidation, pneumothoraces, gail pulmonary edema or pleural effusions are seen. IMPRESSION: No radiographic evidence of acute cardiopulmonary process.
[2019-10-17 14:21] LABS: Basophilic Stippling SLIGHT = 1-2 cells (100X) (None Seen); Hypochromia SLIGHT = 6-15 cells (100X) (0-5/hpf); MDiff Complete? YES; Microcytosis SLIGHT = 6-15 cells (100X) (0-5/hpf); Ovalocytes SLIGHT = 2-5 cells (100X) (0-1/hpf); Platelet Morphology Comment Appears Adequate; Polychromasia SLIGHT = 2-3 cells (100X) (0-2/hpf); Target Cells SLIGHT = 2-5 cells (100X) (0-1/hpf)
[2019-10-17 14:29] LABS: ALT (SGPT) 12 U/L (8-55); AST (SGOT) 17 U/L (5-34); Albumin 3.6 g/dL (3.4-4.8); Alkaline Phosphatase 62 U/L (40-110); Anion Gap 9 mmol/L (10-20); BUN (Urea Nitrogen) 18 mg/dL (9.8-20.1); Bilirubin, Total 0.5 mg/dL (0.2-1.2); CK (CPK) 55 U/L (29-168); Calc. Creatinine Clearance 0 mL/min (70-130); Calcium 8.8 mg/dL (7.8-10.44); Carbon Dioxide 27 mmol/L (23-31); Chloride 106 mmol/L (98-107); Estimated GFR-MDRD 74; Globulin 2.5 g/dL (2.4-3.5); Glucose 116 mg/dL (83-110); Lipase 29 U/L (8-78); Potassium 4.8 mmol/L (3.5-5.1); Protein, Total 6.1 g/dL (6.0-8.3); Sodium 137 mmol/L (136-145)
[2019-10-17] MEDS ORDERED: Iopamidol-370 76% 500 ML 1 ML ONE (14:35)
[2019-10-17 14:40] LABS: Bilirubin Negative (Negative); Blood, Urine Negative (Negative); Glucose, Urine (Dipstick) Negative (Negative); Ketone, Urine Negative (Negative); Leukocyte Negative (Negative); Nitrite Negative (Negative); Protein, Urine (Dipstick) Negative (Neg-Trace); Specific Gravity, Urine 1.015 (1.005-1.030); Urobilinogen 0.2 mg/dL (Less than 2); pH, Urine 8.5 (5.0-9.0)
[2019-10-17 14:43] LABS: Clarity Clear (Clear)
--- NOTE | 2019-10-17 17:52 | CT ---
CT ANGIO OF CHEST PERFORMED WITH INTRAVENOUS CONTRAST ENHANCEMENT WITH 3D RECONSTRUCTIONS: History: Dyspnea. History of carcinoid tumor of lung and previous history of atrial fibrillation. Comparison: 04-27-18 CT angio of the chest, 11-23-[address] of chest. FINDINGS: Once again multiple pulmonary nodules are demonstrated, highly suspicious for metastatic disease. The se nodules have not worsened since the previous study. There is no focal infiltrative lung process no imelda. There is some tree and bud nodularity suggesting some pneumonitis type changes in superior segme nts of both lower lobes. There is no significant mediastinal adenopathy. There is a stable appearance to the pretracheal and p revascular nodes as well as to the left hilar nodes. No significant axillary adenopathy. The thoracic aorta is normal in caliber. There is good pulmonary artery opacification and there is no CT evidence for pulmonary embolus. Densely calcified right hilar density is also stable. Visualized liver parenchyma shows no focal findings. Right and left adrenal glands are normal. A hiat al hernia is present. IMPRESSION: 1. Some minimal pneumonitis changes in both superior segments of the right and left lower lobes devel oping since the prior examination with areas of tree and bud nodularity. 2. Essentially stable bilateral pulmonary nodules. 3. Stable mediastinal and hilar adenopathy. 4. No CT evidence for pulmonary embolus. POS: OFF
--- NOTE | 2019-10-22 15:49 | EKG ---
Test Reason : Blood Pressure : / mmHG Vent. Rate : 060 BPM Atrial Rate : 060 BPM P-R Int : 166 ms QRS Dur : 086 ms QT Int : 414 ms P-R-T Axes : 062 023 056 degrees QTc Int : 414 ms Normal sinus rhythm Anterior infarct , age undetermined Abnormal ECG Confirmed by BONILLA SANDERS DO ([id number]), movie editor LAURA SIERRA ([id number]) on 10/22/2019 3:48:58 PM Referred By: Confirmed By:BONILLA SANDERS DO
== END 2019-10-17 18:36 | disposition home or self-care (01) ==
LOC: ERS 13:35
DX: I10 Essential (primary) hypertension (principal); R00.2 Palpitations; R59.0 Localized enlarged lymph nodes; I48.91 Unspecified atrial fibrillation; Z79.899 Other long term (current) drug therapy
CPT/HCPCS: 36415; 71045; 71275; 80053; 81003; 82550; 83690; 84484; 85025; 93005; 94760; Q9967

== ENCOUNTER 2020-03-28 22:56 | Observation (INO) | payer MEDICARE ==
--- NOTE | 2020-03-28 23:54 | RAD ---
Chest one view HISTORY: Chest pain. COMPARISON: 10/17/2019. FINDINGS: Cardiac silhouette is magnified by projection. Pulmonary vasculature are unremarkable. Mediastinum midline with postoperative changes and aortic calcification. Calcified granulomata and mediastinal lymph nodes consistent with healed granulomatous disease. No airspace consolidation or evidence of pneumothorax. IMPRESSION : No acute abnormalities are demonstrated.
[2020-03-28] MEDS ORDERED: Aspirin Chewable 81 MG TAB ONE (23:57)
[2020-03-28 23:59] LABS: #Basophils 0.1 thou/uL (0.0-0.2); #Eosinphils 0.2 thou/uL (0.0-0.7); #Lymphocytes 2.2 thou/uL (1.20-3.40); #Neutrophils 4.7 thou/uL (1.40-6.50); %Basophils 0.8 % (0.0-1.0); %Eosinophils 2.7 % (0.0-10.0); %Lymphocytes 27.3 % (21.0-51.0); %Monocytes 11.6 % (0.0-10.0); %Neutrophils 57.5 % (42.0-75.0); Hemoglobin 11.6 g/dL (12.0-16.0); Mean Corpuscular HGB CONC 31.3 g/dL (32.0-36.0); Mean Corpuscular Hemoglobin 20.5 pg (27.0-31.0); Mean Corpuscular Volume 65.5 fL (78.0-98.0); Mean Platelet Volume 9.7 fL (7.4-10.4); Platelet Count 218 thou/uL (130-400); RBC Distribution Width 13.9 % (11.5-14.5); Red Blood Cell (RBC) Count 5.66 mill/uL (4.20-5.40); White Blood Cell (WBC) Count 8.2 thou/uL (4.8-10.8)
[2020-03-29 00:24] LABS: ALT (SGPT) 12 U/L (8-55); AST (SGOT) 21 U/L (5-34); Albumin 3.5 g/dL (3.4-4.8); Alkaline Phosphatase 77 U/L (40-110); Anion Gap 10 mmol/L (10-20); BUN (Urea Nitrogen) 17 mg/dL (9.8-20.1); Bilirubin, Total 0.4 mg/dL (0.2-1.2); Calc. Creatinine Clearance 0 mL/min (70-130); Calcium 8.7 mg/dL (7.8-10.44); Carbon Dioxide 24 mmol/L (23-31); Chloride 108 mmol/L (98-107); Globulin 2.8 g/dL (2.4-3.5); Glucose 140 mg/dL (83-110); Potassium 4.4 mmol/L (3.5-5.1); Protein, Total 6.3 g/dL (5.8-8.1); Sodium 138 mmol/L (136-145)
[2020-03-29] MEDS ORDERED: hydrALAZINE 20 MG/ML VIAL SLOW IVP PRN (03:09)
[2020-03-29 03:11] LABS: Troponin I 0.012 ng/mL (< 0.028)
[2020-03-29] MEDS ORDERED: Acetaminophen 325 MG TAB PO PRN (03:13)
[2020-03-29] MEDS ORDERED: Acetaminophen 650 MG Suppository PR PRN (03:13)
[2020-03-29] MEDS ORDERED: hydrALAZINE 20 MG/ML VIAL ONE (03:26)
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
[2020-03-29] MEDS ORDERED: cloNIDine 0.1 MG TAB ONE (05:10)
[2020-03-29] MEDS ORDERED: cloNIDine 0.1 MG TAB PO SCH ×2 (05:30→17:15)
[2020-03-29 05:50] LABS: #Eosinphils 0.1 thou/uL (0.0-0.7); #Lymphocytes 2.4 thou/uL (1.20-3.40); #Monocytes 0.7 thou/uL (0.11-0.59); #Neutrophils 3.9 thou/uL (1.40-6.50); %Basophils 0.6 % (0.0-1.0); %Monocytes 9.9 % (0.0-10.0); %Neutrophils 54.6 % (42.0-75.0); Hemoglobin 12.6 g/dL (12.0-16.0); Mean Corpuscular Hemoglobin 20.2 pg (27.0-31.0); Mean Corpuscular Volume 65.2 fL (78.0-98.0); Mean Platelet Volume 9.6 fL (7.4-10.4); Platelet Count 240 thou/uL (130-400); RBC Distribution Width 14.1 % (11.5-14.5); Red Blood Cell (RBC) Count 6.21 mill/uL (4.20-5.40); White Blood Cell (WBC) Count 7.2 thou/uL (4.8-10.8)
[2020-03-29 05:51] LABS: Anion Gap 13 mmol/L (10-20); BUN (Urea Nitrogen) 13 mg/dL (9.8-20.1); Calc. Creatinine Clearance 0 mL/min (70-130); Calcium 9.2 mg/dL (7.8-10.44); Carbon Dioxide 25 mmol/L (23-31); Cardiac Risk 3.2 (Less than 4.5); Chloride 108 mmol/L (98-107); Cholesterol 171 mg/dl (< 200 Desired); Glucose 122 mg/dL (83-110); HDL Cholesterol 54 mg/dL (>60 Neg Risk); LDL Cholesterol, Calculated 104 mg/dL; Magnesium 2.2 mg/dL (1.6-2.6); Potassium 3.9 mmol/L (3.5-5.1); Sodium 142 mmol/L (136-145); Triglycerides 66 mg/dL (Less than 150)
[2020-03-29] MEDS ORDERED: Famotidine 20 MG TAB ONE (10:44)
[2020-03-29] MEDS: Famotidine 20 MG TAB PO SCH ×2 (10:55→21:36)
--- NOTE | 2020-03-29 11:23 | NM ---
EXAM: Nuclear medicine cardiac perfusion examination with ejection fraction HISTORY: Chest pain TECHNIQUE: Rest images: 10.6 mCi technetium 99m sestamibi Stress images: 31.2 mCi of technetium 99m sestamibi; Lexiscan COMPARISON: None FINDINGS: Tomographic images: No fixed or reversible perfusion defects. Gated images: Normal wall motion and ejection fraction of greater than 70%. EDV: 75 mL LHR: 0.4 TID: 1.1 IMPRESSION: No evidence of ischemia
[2020-03-29] MEDS ORDERED: Carvedilol 6.25 MG TAB PO SCH (12:30)
--- NOTE | 2020-03-29 16:21 | PDOC.BPN ---
- Brief Progress Note Encounter Date: 03/29/20 Encounter Time: 16:20 This patient is an 85-year-old who is hospitalized with uncontrolled high blood pressure and chest tightness. She had a Cardiolite stress test today that was normal. Her blood pressure however remains uncontrolled at this time. We will restart her home medications and hopefully get her optimized and she can discharge home tomorrow.
[2020-03-29] MEDS ORDERED: Dronedarone HCl 400 MG TAB PO SCH (16:30)
[2020-03-29] MEDS: Carvedilol 3.125 MG TAB PO SCH (17:25)
[2020-03-29] MEDS ORDERED: Regadenoson 0.4 MG/5 ML SYRINGE ONE (17:35)
[2020-03-29 18:05] VITALS: BMI 24.7
[2020-03-29] MEDS: Lisinopril 10 MG TAB PO SCH (21:36)
[2020-03-29] MEDS ORDERED: Labetalol HCl 100 MG/20 ML VIAL SLOW IVP PRN (22:58)
[2020-03-30] MEDS ORDERED: Carvedilol 6.25 MG TAB PO SCH ×2 (08:00→17:00)
[2020-03-30] MEDS: Famotidine 20 MG TAB PO SCH (08:26)
[2020-03-30] MEDS: Lisinopril 10 MG TAB PO SCH (08:26)
[2020-03-30] MEDS: Carvedilol 3.125 MG TAB PO SCH (08:37)
[2020-03-30 11:14] VITALS: BP 136/73; TEMP 97.8
--- NOTE | 2020-03-30 16:54 | PDOC.DS.DS ---
Provider Date of Admission: 03/29/20 01:29 Date of Discharge: 03/30/20 Admitting Provider: Blaise Weiss MD Primary Care Physician: Jeremiah Mooney, DO Course Hospital Course: This patient is a very pleasant 85-year-old who was admitted to the hospital with what was felt to be a chest tightness/pressure. She does have a past medical history significant for coronary artery disease with recent bypass surgery. She was admitted for further stabilization. She reported that her blood pressure appears to have been getting more uncontrolled lately. Due to her known coronary artery disease she decided to present to the hospital for evaluation. She was set up for Cardiolite stress test which was done and it was completely normal. There were no evidence of acute ischemia. We changed her blood pressure medications around. This did improve overall. I saw and evaluated this woman earlier today and she was deemed to be clinically stable for discharge and I discharged her home. Resuscitation Status: 03/29/20 03:13 Resuscitation Status Routine Co-Sign Provider: Resuscitation Status: FULL: Full Resuscitation Lab Results: 03/29/20 05:20 03/29/20 05:20 Abnormal Lab Results - Last 48 hrs 03/28/20 23:44: Chloride 108 H 03/28/20 23:44: RBC 5.66 H, Hgb 11.6 L, MCV 65.5 L, MCH 20.5 L, MCHC 31.3 L, Monocytes % 11.6 H, Monocytes # 1.0 H 03/29/20 05:20: Chloride 108 H 03/29/20 05:20: RBC 6.21 H, MCV 65.2 L, MCH 20.2 L, MCHC 31.0 L, Monocytes # 0.7 H Vitals: Vital Signs (12 hours) Temp Pulse Resp BP BP BP Pulse Ox 03/30/20 11:13 97.8 F 58 L 18 136/73 97 03/30/20 10:28 150/68 H 03/30/20 08:26 144/63 H 03/30/20 07:31 98.0 F 62 18 211/94 H 97 03/30/20 05:05 98.4 F 57 L 16 179/81 H 96 Weight Weight 135 lb 6.4 oz Physical Exam: The patient was seen and examined on the day of discharge. General Appearance: NAD, awake alert Eye: PERRL, anicteric sclera ENT: normocephalic atraumatic, no oropharyngeal lesions Neck: supple, symmetric, no JVD Respiratory: CTAB, no wheezes, no rales Gastrointestinal: soft, non-tender, non-distended Neurological: cranial nerve grossly intact, normal sensation to touch PSYCH: normal affect, normal behavior Problem (1) Chest pressure Code(s): R07.89 - OTHER CHEST PAIN Status: Acute (2) Hypertensive urgency Code(s): I16.0 - HYPERTENSIVE URGENCY Status: Acute (3) CAD (coronary artery disease) Code(s): I25.10 - ATHSCL HEART DISEASE OF [place] CORONARY ARTERY W/O ANG PCTRS Status: Chronic (4) Chronic a-fib Code(s): I48.20 - CHRONIC ATRIAL FIBRILLATION, UNSPECIFIED Status: Chronic Time Spent in discharge related activities (mins): 30 Plan Prescriptions: Carvedilol [Coreg] 6.25 mg PO BID-WM #60 tab Lisinopril [Zestril] 20 mg PO BID #60 tab Home Medications: Medication Instructions Recorded Confirmed Type Aspirin [Ecotrin Low Strength] 81 mg PO DAILY tab 04/22/18 03/29/20 Rx Acetaminophen [Tylenol Regular 650 mg PO Q4H PRN tab 04/30/18 03/29/20 Rx Strength] Dronedarone HCl [Multaq] 400 mg PO BID-WM #60 tab 05/20/18 03/29/20 Rx cloNIDine [Catapres] 0.1 mg PO BID PRN 03/29/20 03/29/20 History Carvedilol [Coreg] 6.25 mg PO BID-WM #60 tab 03/30/20 Rx Lisinopril [Zestril] 10 mg PO BID tab 03/30/20 Rx Lisinopril [Zestril] 20 mg PO BID #60 tab 03/30/20 Rx Allergies: No Known Allergies Allergy (Verified 05/03/19 09:50) Activity:: Activity as Tolerated Nourishment:: Heart Healthy Diet Referrals: Jak Mooney DO [Primary Care Provider] - 3 Days (Please follow-up with PCP within 3 days.) Disposition: HOME Quality CORE MEASURES:: N/A
[2020-03-30] MEDS ORDERED: Dronedarone HCl 400 MG TAB PO SCH (17:00)
--- NOTE | 2020-03-31 15:17 | EKG ---
Test Reason : CP Blood Pressure : / mmHG Vent. Rate : 052 BPM Atrial Rate : 052 BPM P-R Int : 164 ms QRS Dur : 086 ms QT Int : 450 ms P-R-T Axes : 051 022 051 degrees QTc Int : 418 ms Sinus bradycardia Otherwise normal ECG Confirmed by JESENIA Asencio, TEDDY ([id number]), managing editor PILAR FUNEZ ([id number] on 03/31/2020 3:16:59 PM Referred By: MU Confirmed By:TEDDY BA M.D.
== END 2020-03-30 15:36 | disposition home or self-care (01) ==
LOC: ERS 22:56 → ERHOLD 03-29 01:29 → 2NO 03-29 16:55
PROVIDERS: ADMIT Student in an Organized Health Care Education/Training Program; ATTEND Hospitalist
DX: R07.89 Other chest pain (principal); I16.0 Hypertensive urgency; I10 Essential (primary) hypertension; I25.2 Old myocardial infarction; I48.20 Chronic atrial fibrillation, unspecified; I25.10 Atherosclerotic heart disease of native coronary artery without angina pectoris; Z79.82 Long term (current) use of aspirin; Z79.899 Other long term (current) drug therapy; Z95.1 Presence of aortocoronary bypass graft
CPT/HCPCS: 71045; 78452; 80048; 80053; 80061; 83735; 84484 ×3; 85025 ×2; 93005; 93017; A9500; 36415; 96374; G0378; J0360; J2785

== ENCOUNTER 2020-10-05 07:35 | Emergency (ER) | payer MEDICARE ==
[2020-10-05 08:16] LABS: #Eosinphils 0.1 thou/uL (0.0-0.7); #Lymphocytes 1.8 thou/uL (1.20-3.40); #Monocytes 0.7 thou/uL (0.11-0.59); #Neutrophils 4.4 thou/uL (1.40-6.50); %Basophils 0.5 % (0.0-1.0); %Eosinophils 1.9 % (0.0-10.0); %Lymphocytes 24.9 % (21.0-51.0); %Monocytes 10.2 % (0.0-10.0); %Neutrophils 62.5 % (42.0-75.0); Hemoglobin 11.2 g/dL (12.0-16.0); Mean Corpuscular HGB CONC 31.1 g/dL (32.0-36.0); Mean Corpuscular Hemoglobin 20.2 pg (27.0-31.0); Mean Corpuscular Volume 64.8 fL (78.0-98.0); Mean Platelet Volume 9.5 fL (7.4-10.4); Platelet Count 227 thou/uL (130-400); RBC Distribution Width 14.7 % (11.5-14.5); Red Blood Cell (RBC) Count 5.56 mill/uL (4.20-5.40)
[2020-10-05 08:31] LABS: ALT (SGPT) 15 U/L (8-55); AST (SGOT) 19 U/L (5-34); Albumin 3.5 g/dL (3.4-4.8); Alkaline Phosphatase 64 U/L (40-110); Anion Gap 9 mmol/L (10-20); BUN (Urea Nitrogen) 15 mg/dL (9.8-20.1); Calc. Creatinine Clearance 0 mL/min (70-130); Carbon Dioxide 27 mmol/L (23-31); Chloride 107 mmol/L (98-107); Glucose 110 mg/dL (83-110); Potassium 3.8 mmol/L (3.5-5.1); Protein, Total 6.5 g/dL (5.8-8.1); Sodium 139 mmol/L (136-145)
[2020-10-05 08:48] LABS: Reflex for Review?? NO
[2020-10-05 08:49] LABS: Hypochromia SLIGHT = 6-15 cells (100X) (0-5/hpf); MDiff Complete? YES; Microcytosis MODERATE=15-30 cells (100X) (0-5/hpf); Platelet Morphology Comment Appears Adequate; Polychromasia SLIGHT = 2-3 cells (100X) (0-2/hpf)
== END 2020-10-05 09:43 | disposition home or self-care (01) ==
LOC: ERS 07:35
DX: I10 Essential (primary) hypertension (principal); I48.91 Unspecified atrial fibrillation; Z79.899 Other long term (current) drug therapy
CPT/HCPCS: 36415; 80053; 84484; 85025; 93005

== ENCOUNTER 2023-01-07 18:06 | Inpatient (IN) | payer MEDICARE ==
[2023-01-07 22:34] VITALS: BMI 24.2
[2023-01-08] MEDS ORDERED: Ondansetron ODT 4 MG TAB PO PRN (00:27)
[2023-01-08] MEDS ORDERED: Acetaminophen 650 MG Suppository PR PRN (00:27)
[2023-01-08] MEDS ORDERED: Ondansetron PF 4 MG/2 ML Vial IVP PRN (00:27)
[2023-01-08] MEDS ORDERED: Acetaminophen 325 MG TAB PO PRN (00:27)
[2023-01-08 05:17] LABS: Anion Gap 11 mmol/L (10-20); BUN (Urea Nitrogen) 19 mg/dL (9.8-20.1); Calc. Creatinine Clearance 55 mL/min (70-130); Calcium 8.9 mg/dL (7.8-10.44); Carbon Dioxide 31 mmol/L (23-31); Chloride 102 mmol/L (98-107); Estimated GFR 84; Glucose 95 mg/dL (83-110); Magnesium 2.2 mg/dL (1.6-2.6); Potassium 3.7 mmol/L (3.5-5.1); Sodium 140 mmol/L (136-145)
[2023-01-08] MEDS ORDERED: Carvedilol 6.25 MG TAB PO SCH (08:00)
[2023-01-08] MEDS: NIFEdipine XL 60 MG ER.TAB PO SCH (08:41)
[2023-01-08] MEDS: Lisinopril 10 MG TAB PO SCH ×2 (08:42→20:12)
[2023-01-08] MEDS: Dronedarone HCl 400 MG TAB PO SCH ×2 (08:42→16:46)
[2023-01-08] MEDS: Aspirin 81 mg Enteric Coated Tablet PO SCH (08:42)
[2023-01-08] MEDS ORDERED: cloNIDine 0.1 MG TAB PO PRN (09:00)
[2023-01-08] MEDS ORDERED: Furosemide 40 MG/4 ML VIAL SLOW IVP SCH (09:00)
[2023-01-08] MEDS ORDERED: Potassium Chloride 20 MEQ TAB PO SCH (11:15)
[2023-01-08 18:15] LABS: Anion Gap 13 mmol/L (10-20); BUN (Urea Nitrogen) 23 mg/dL (9.8-20.1); Calc. Creatinine Clearance 46 mL/min (70-130); Calcium 8.8 mg/dL (7.8-10.44); Carbon Dioxide 30 mmol/L (23-31); Chloride 98 mmol/L (98-107); Estimated GFR 68; Glucose 99 mg/dL (83-110); Potassium 4.4 mmol/L (3.5-5.1); Sodium 137 mmol/L (136-145)
[2023-01-09 04:37] LABS: #Basophils 0.1 thou/uL (0.0-0.2); #Eosinphils 0.3 thou/uL (0.0-0.7); #Monocytes 1.1 thou/uL (0.11-0.59); #Neutrophils 4.3 thou/uL (1.40-6.50); %Basophils 0.7 % (0.0-1.0); %Eosinophils 3.3 % (0.0-10.0); %Lymphocytes 29.3 % (21.0-51.0); %Neutrophils 53.5 % (42.0-75.0); Hematocrit 38.5 % (36.0-47.0); Hemoglobin 11.5 g/dL (12.0-16.0); Mean Corpuscular HGB CONC 29.9 g/dL (32.0-36.0); Mean Corpuscular Hemoglobin 20.1 pg (27.0-31.0); Mean Corpuscular Volume 67.4 fl (78.0-98.0); Mean Platelet Volume 10.1 fL (7.4-10.4); Platelet Count 274 10x3/uL (130-400); RBC Distribution Width 15.3 % (11.5-14.5); Red Blood Cell (RBC) Count 5.71 mill/uL (4.20-5.40); White Blood Cell (WBC) Count 8.1 10x3/uL (4.8-10.8)
[2023-01-09 04:49] LABS: ALT (SGPT) 31 U/L (8-55); AST (SGOT) 30 U/L (5-34); Albumin 3.3 g/dL (3.4-4.8); Alkaline Phosphatase 67 U/L (40-110); Anion Gap 12 mmol/L (10-20); BUN (Urea Nitrogen) 18 mg/dL (9.8-20.1); Bilirubin, Total 0.7 mg/dL (0.2-1.2); Calc. Creatinine Clearance 54 mL/min (70-130); Calcium 8.7 mg/dL (7.8-10.44); Carbon Dioxide 32 mmol/L (23-31); Chloride 99 mmol/L (98-107); Estimated GFR 84; Globulin 3.3 g/dL (2.4-3.5); Glucose 105 mg/dL (83-110); Potassium 4.1 mmol/L (3.5-5.1); Protein, Total 6.6 g/dL (5.8-8.1); Sodium 139 mmol/L (136-145)
[2023-01-09 05:17] LABS: CellaVision Operator ID lab.abc; Hypochromia SLIGHT = 6-15 cells HPF (0-5); Microcytosis SLIGHT = 6-15 cells HPF (0-5); Platelet Adequacy Comment Platelets Normal
[2023-01-09] MEDS: Aspirin 81 mg Enteric Coated Tablet PO SCH (08:49)
[2023-01-09 09:09] LABS: Troponin I Less than 0.010 ng/mL (< 0.028)
[2023-01-09] MEDS ORDERED: NIFEdipine XL 60 MG ER.TAB PO SCH (12:45)
[2023-01-09] MEDS ORDERED: Lisinopril 10 MG TAB PO SCH (12:45)
[2023-01-09] MEDS: Lisinopril 10 MG TAB PO SCH ×2 (12:58→22:21)
[2023-01-09] MEDS: Dronedarone HCl 400 MG TAB PO SCH ×2 (12:58→16:58)
[2023-01-09] MEDS: NIFEdipine XL 60 MG ER.TAB PO SCH (12:58)
[2023-01-09] MEDS ORDERED: Regadenoson 0.4 MG/5 ML SYRINGE ONE (16:11)
[2023-01-09] MEDS: Carvedilol 6.25 MG TAB PO SCH (16:58)
[2023-01-09] MEDS ORDERED: Atorvastatin Calcium 20 MG TAB PO SCH (21:00)
[2023-01-10] MEDS: Carvedilol 6.25 MG TAB PO SCH (08:48)
[2023-01-10] MEDS: Aspirin 81 mg Enteric Coated Tablet PO SCH (08:49)
[2023-01-10] MEDS: Dronedarone HCl 400 MG TAB PO SCH (08:49)
[2023-01-10] MEDS: Lisinopril 10 MG TAB PO SCH (08:50)
[2023-01-10] MEDS ORDERED: NIFEdipine XL 60 MG ER.TAB PO SCH (09:00)
[2023-01-10 11:42] VITALS: BP 125/60; TEMP 97.9
[2023-01-10] MEDS ORDERED: FLU VACC QS2023(65UP)/MF59C/PF 60 MCG/0.5 ML SYRINGE IM ONE (23:30)
== END 2023-01-10 12:33 | disposition home or self-care (01) | DRG 291 ==
LOC: INTOOBSV 21:48 → 2NO 21:48 → OBSVTOIN 01-08 16:29
PROVIDERS: ADMIT Internal Medicine; ATTEND Internal Medicine
DX: I11.0 Hypertensive heart disease with heart failure (principal); I50.33 Acute on chronic diastolic (congestive) heart failure; J96.01 Acute respiratory failure with hypoxia; I25.10 Atherosclerotic heart disease of native coronary artery without angina pectoris; I48.0 Paroxysmal atrial fibrillation; R91.1 Solitary pulmonary nodule; E78.5 Hyperlipidemia, unspecified; Z98.890 Other specified postprocedural states; Z79.82 Long term (current) use of aspirin; Z79.899 Other long term (current) drug therapy; Z95.1 Presence of aortocoronary bypass graft; Z88.8 Allergy status to other drugs, medicaments and biological substances
CPT/HCPCS: 36415; 71250; 78452; 80048; 80053; 83735; 83880; 84443; 84484; 85025; 93017; 93306; 93798; A9500; G0378; J1940; J2785